=== PATIENT | male | born 1950 | race Caucasian/White ===

== ENCOUNTER → 2017-05-17 | Outpatient (CLI) | payer MEDICARE ==
[2017-05-17 15:34] LABS: Blood Urea Nitrogen 27 mg/dL (9-20)
--- NOTE | 2017-05-17 17:22 | CT ---
EXAMINATION TYPE: CT abdomen pelvis w con DATE OF EXAM: 05/17/2017 COMPARISON: 02/19/2017 HISTORY: Diverticulitis and abd pain. CT DLP: 1680 mGycm Automated exposure control for dose reduction was used. TECHNIQUE: Helical acquisition of images was performed from the lung bases through the pelvis. CONTRAST: Performed with Oral Contrast and with IV Contrast, patient injected with 100ml mL of Omnipaque 300. FINDINGS: There is coarse interstitial density at the lung bases. There is no pleural effusion. Gallbladder is large. There are calcified granulomata in the liver. Bile ducts are not dilated. There is no evidence of pancreatic mass. Spleen appears normal. There is no adrenal mass. Kidneys show satisfactory contrast opacification. There is no hydronephrosi s. There is a 2 cm cortical cyst on the lateral left kidney. There is no retroperitoneal adenopathy. Abdominal aorta is atheromatous. Bladder distends smoothly. There is no sign of a pelvic mass. There is no ascites. There is no sign of free air. I see no intestinal wall thickening. There are diverticu la in the sigmoid colon. There are surgical clips in the sigmoid colon. I see no sign of diverticulit is. Appendix appears normal. There is no sign of a bowel obstruction. There are spondylotic changes i n the lumbar spine and moderate spinal stenosis is present at L3-4. IMPRESSION: EXTENSIVE INFILTRATES AT THE LUNG BASES CONSISTENT WITH PULMONARY FIBROSIS. ATHEROSCLEROTIC VASCULAR DISEASE. MODERATE L3-4 BONY SPINAL STENOSIS. LEFT RENAL CORTICAL CYST. NO EVIDENCE OF DIVERTICULITIS. DIVERTIC ULOSIS. NO ADVERSE CHANGE COMPARED TO OLD EXAM.
== END | disposition home or self-care (01) ==
LOC: RADCTMAIN 15:04
PROVIDERS: ATTEND Surgery
DX: K57.90 Diverticulosis of intestine, part unspecified, without perforation or abscess without bleeding (principal); N28.1 Cyst of kidney, acquired
CPT/HCPCS: 82565; 84520; 74177; 36415; Q9967

== ENCOUNTER 2017-06-13 12:05 | Day surgery (SDC) | payer MEDICARE ==
[2017-06-11 15:05] VITALS: BMI 25.5
[~2017-06-13 12:05] MED LIST: DEXAMETHASONE SOD PHOSPHATE 10 MG/ML 1 ML VIAL IV ONE; HEPARIN SODIUM,PORCINE 5,000 UNIT/ML 1 ML VIAL SQ ONE; MORPHINE SULFATE 4 MG/ML SYRINGE IV PRN; ONDANSETRON 4 MG/2 ML VIAL IVP ONE; ceFAZolin IN SWFI 2 GM/20 ML SYRINGE IVP ONE
[2017-06-13 13:30] LABS: Glucose,Whole Blood 125 mg/dL (75-99)
[2017-06-13] MEDS: LACTATED RINGERS 1,000 ML IV SCH ×2 (13:35→14:07)
--- NOTE | 2017-06-13 14:02 | P.GSHP ---
History of Present Illness H&P Date: 06/13/17 Chief Complaint: Right upper quadrant pain This is a 67-year-old male referred from Dr. Kirby Hearn. Patient is a chronic complaints of right upper quadrant pain. He states he has pain after eating. His recent HIDA scan shows a diminished ejection fraction he presents today for laparoscopic cholecystectomy for chronic right upper quadrant pain. Past Medical History Past Medical History: Coronary Artery Disease (CAD), Diabetes Mellitus, Hyperlipidemia, Hypertension, Osteoarthritis (OA), Vascular Disorder Additional Past Medical History / Comment(s): Hx: Urinary calculus, diverticulitis, lower lt abdominal pain,. GALLBLADDER DISORDER. EDEMA KASSANDRA LEGS. TINY WOUND LT MARSHALL, (WAS TREATED IN WOUND CLINIC IN PAST) KEEPS DRESSING WITH MEDIHONEY, NO DRAINAGE. History of Any Multi-Drug Resistant Organisms: None Reported Past Surgical History: Bowel Resection, Coronary Bypass/CABG, Heart Catheterization, Hernia Repair, Joint Replacement, Orthopedic Surgery Additional Past Surgical History / Comment(s): ORIF Rt ankle. Left knee arthroscopy, Total lt knee replacement. COLONOSCOPY. CHRONIC LT MARSHALL WOUND. CABG-11/30/2009 Past Anesthesia/Blood Transfusion Reactions: No Reported Reaction, Unable to Obtain Additional Past Anesthesia/Blood Transfusion Reaction / Comment(s): (ADOPTED) Smoking Status: Former smoker - Past Family History Mother Family Medical History: Unable to Obtain Additional Family Medical History / Comment(s): adopted Medications and Allergies Home Medications Medication Instructions Recorded Confirmed Type Allopurinol [Zyloprim] 300 mg PO DAILY 07/28/13 06/13/17 History Hydrocodone/Acetaminophen [Vicodin 0.5 - 1 tab PO BID 07/28/13 06/13/17 History Hp 10-300 mg Tablet] amLODIPine [Norvasc] 10 mg PO HS 07/28/13 06/13/17 History glipiZIDE [Glucotrol XL] 10 mg PO DAILY 07/28/13 06/13/17 History metFORMIN HCL [Glucophage] 500 mg PO QAM 07/28/13 06/13/17 History Aspirin 325 mg PO DAILY 02/21/17 06/13/17 History Acetaminophen [Tylenol Arthritis] 650 mg PO Q8H PRN 06/07/17 06/13/17 History Metoprolol Tartrate [Lopressor] 25 mg PO BID 06/07/17 06/13/17 History Multivitamins, Thera [Multivitamin 1 tab PO DAILY 06/11/17 06/13/17 History (formulary)] metFORMIN HCL [Glucophage] 1,000 mg PO HS 06/11/17 06/13/17 History Allergies Allergy/AdvReac Type Severity Reaction Status Date / Time Penicillins Allergy Unknown Verified 06/13/17 13:18 Sulfa (Sulfonamide Allergy Unknown Verified 06/13/17 13:18 Antibiotics) Surgical - Exam Vital Signs Temp Pulse Resp BP Pulse Ox 97.7 F 60 20 162/76 99 06/13/17 13:26 06/13/17 13:26 06/13/17 13:26 06/13/17 13:26 06/13/17 13:26 - General well developed, no distress - Eyes PERRL - ENT normal pinna - Neck no masses - Respiratory normal expansion - Cardiovascular Rhythm: regular - Abdomen Abdomen: soft Results - Labs Abnormal Lab Results - Last 24 Hours (Table) 06/13/17 Range/Units 13:29 POC Glucose (mg/dL) 125 H (75-99) mg/dL Assessment and Plan Assessment: Right upper quadrant pain Chronic cholecystitis We'll perform laparoscopic cholecystectomy.
[2017-06-13] MEDS ORDERED: PROPOFOL 10 MG/ML 20 ML VIAL IV ONE (14:08)
[2017-06-13] MEDS ORDERED: LABETALOL 5 MG/ML VIAL MDV ONE (14:08)
[2017-06-13] MEDS ORDERED: fentaNYL (PF) 50 MCG/ML 2 ML AMP ONE (14:08)
[2017-06-13] MEDS ORDERED: MIDAZOLAM 2 MG/2 ML VIAL ONE (14:08)
[2017-06-13] MEDS ORDERED: ePHEDrine SULFATE/0.9% NACL/PF 50 MG/5 ML SYRINGE IV ONE (14:08)
[2017-06-13] MEDS ORDERED: SUCCINYLCHOLINE CHLORIDE 100 MG/5 ML SYR IV ONE (14:08)
[2017-06-13] MEDS ORDERED: NEOSTIGMINE 1 MG/ML 10 ML VIAL ONE (14:08)
[2017-06-13] MEDS ORDERED: GLYCOPYRROLATE 0.2 MG/ML 2 ML VIAL ONE (14:08)
[2017-06-13] MEDS ORDERED: ROCURONIUM BROMIDE 10 MG/ML 10 ML VIAL IV ONE (14:08)
[2017-06-13] MEDS ORDERED: LIDOCAINE 1% INJ 10MG/ML (20 ML MDV) ONE (14:08)
[2017-06-13] MEDS ORDERED: BUPIVACAINE (PF) 0.25% 30 ML VIAL SQ ONE (14:14)
[2017-06-13 15:19] VITALS: RESP 16; TEMP 98
[2017-06-13 15:26] LABS: Glucose,Whole Blood 160 mg/dL (75-99)
[2017-06-13 16:50] VITALS: BP 144/56; PULSE 72
--- NOTE | 2017-06-13 17:58 | P.OP ---
Date of Procedure: 06/13/17 Preoperative Diagnosis: Cholecystitis Postoperative Diagnosis: Cholecystitis Procedure(s) Performed: Laparoscopic cholecystectomy Anesthesia: KENNY Surgeon: Raffy Loya Estimated Blood Loss (ml): 5 Pathology: other (Gallbladder) Condition: stable Disposition: PACU Description of Procedure: The patient was placed on the operating table. The patient received a general endotracheal tube anesthesia. The patients abdomen was prepped and draped in the usual sterile fashion. Through an infraumbilical stab incision, the fascia of the anterior abdominal wall was grasped with a pair of Kochers and then the Veress needle was placed in the peritoneal cavity. Position of the Veress needle was confirmed with positive drop test. The abdomen was then insufflated. After adequate insufflation, the 10 mm trocar was placed in the peritoneal cavity. Following this the laparoscope was placed in the peritoneal cavity. The patient was placed in the head-up, right side up position and then a 5 mm trocar was placed in the right lateral and right subcostal position under direct visualization. A 8 mm trocar was placed in the epigastric position. The gallbladder was grasped in the fundus and infundibulum. Traction on the gallbladder was placed in the lateral and the cephalad positions. The triangle of Calot was visualized.. The cystic duct was bluntly dissected until the union of the cystic duct and common bile duct was seen. The cystic duct was then divided and sealed with the Harmonic scissors. A PDS Endoloop was then placed throughout the cystic duct stump. The cystic artery divided and sealed with the Harmonic scissors. The gallbladder was then removed from the liver bed using Harmonic scissors. The gallbladder was then extracted through the epigastric port site. Operative field was checked for any bleeding spots and Harmonic scissors was used to coagulate the liver bed. The abdomen was irrigated. The trocars were removed. The skin was closed using interrupted 3-0 Vicryl suture. Dermabond dressing were applied. The patient tolerated the procedure well.
== END 2017-06-13 17:15 | disposition home or self-care (01) ==
LOC: OR 12:05
PROVIDERS: ATTEND Surgery
DX: K80.10 Calculus of gallbladder with chronic cholecystitis without obstruction (principal); I25.10 Atherosclerotic heart disease of native coronary artery without angina pectoris; E11.9 Type 2 diabetes mellitus without complications; E78.5 Hyperlipidemia, unspecified; M19.90 Unspecified osteoarthritis, unspecified site; R59.0 Localized enlarged lymph nodes; I10 Essential (primary) hypertension; Z87.442 Personal history of urinary calculi; Z87.891 Personal history of nicotine dependence; Z88.0 Allergy status to penicillin; Z79.84 Long term (current) use of oral hypoglycemic drugs; Z90.49 Acquired absence of other specified parts of digestive tract; Z96.652 Presence of left artificial knee joint; Z95.1 Presence of aortocoronary bypass graft; Z79.82 Long term (current) use of aspirin; Z88.2 Allergy status to sulfonamides
CPT/HCPCS: 88304; 47562; J2250; J2270; J1644; J1100; J2710; J2405; J2001; J3010; J0330; J2704; J0690

== ENCOUNTER → 2018-01-28 | Outpatient (CLI) | payer MEDICARE ==
[2018-01-28 15:45] LABS: HCT 41.5 % (39.0-53.0); HGB 13.1 gm/dL (13.0-17.5); MCH 32.1 pg (25.0-35.0); MCHC 31.5 g/dL (31.0-37.0); MCV 101.7 fL (80.0-100.0); Macrocytosis Slight; Mean Platelet Volume 7.1; Platelet Count 259 k/uL (150-450); RBC 4.08 m/uL (4.30-5.90); RDW 13.4 % (11.5-15.5); WBC 7.9 k/uL (3.8-10.6)
== END | disposition home or self-care (01) ==
LOC: LABPAT 14:17
PROVIDERS: ATTEND Internal Medicine Interventional Cardiology
DX: Z01.812 Encounter for preprocedural laboratory examination (principal); I25.10 Atherosclerotic heart disease of native coronary artery without angina pectoris; I10 Essential (primary) hypertension; E78.1 Pure hyperglyceridemia; R07.9 Chest pain, unspecified
CPT/HCPCS: 36415; 80051; 82565; 84520; 85027

== ENCOUNTER 2018-01-31 07:49 | Day surgery (SDC) | payer MEDICARE ==
[2018-01-28 10:49] VITALS: BMI 27.9
[~2018-01-31 07:49] MED LIST changes: +ALPRAZolam 0.25 MG TAB PO PRN; +ASPIRIN 325 MG TAB PO ONE; -DEXAMETHASONE SOD PHOSPHATE 10 MG/ML 1 ML VIAL IV ONE; -HEPARIN SODIUM,PORCINE 5,000 UNIT/ML 1 ML VIAL SQ ONE; -MORPHINE SULFATE 4 MG/ML SYRINGE IV PRN; +NITROGLYCERIN SL TABS 0.4 MG TAB SUBLINGUAL PRN; -ONDANSETRON 4 MG/2 ML VIAL IVP ONE; +SODIUM CHLORIDE 0.9% 1,000 ML in EMPTY BAG 1 BAG IV ONE; -ceFAZolin IN SWFI 2 GM/20 ML SYRINGE IVP ONE
[2018-01-31 08:29] VITALS: TEMP 97.9
[2018-01-31 08:36] LABS: Glucose,Whole Blood 136 mg/dL (75-99)
[2018-01-31] MEDS ORDERED: MIDAZOLAM 2 MG/2 ML VIAL IV ONE (09:59)
[2018-01-31] MEDS ORDERED: LIDOCAINE 1% INJ 10MG/ML (20 ML MDV) SQ ONE (10:00)
[2018-01-31] MEDS ORDERED: IOPAMIDOL-370 125ML BTL INJ ONE (10:25)
[2018-01-31] MEDS ORDERED: RX INFO: IV CONTRAST WAS GIVEN 1 EACH MISC MISCELLANE PRN (10:37)
[2018-01-31] MEDS ORDERED: SODIUM CHLORIDE 0.9% 1,000 ML IV SCH (10:45)
[2018-01-31] MEDS ORDERED: hydrALAZINE HCL 20 MG/ML 1 ML VIAL IVP PRN (12:05)
[2018-01-31] MEDS ORDERED: hydrALAZINE HCL 20 MG/ML 1 ML VIAL ONE (12:05)
[2018-01-31 15:47] VITALS: BP 156/72; PULSE 76; RESP 16
--- NOTE | 2018-01-31 17:36 | CC ---
CARDIAC CATHETERIZATION REPORT DATE OF SERVICE: 01/31/2018 PERFORMING PHYSICIAN: Mike Arevalo MD, service center assistant. PROCEDURES PERFORMED: 1. Selective left and right coronary angiogram. 2. SVG to first and second obtuse marginal branch angiogram. 3. KAUFMAN to LAD angiogram. 4. Left heart catheterization. INDICATION: This is a pleasant 67-year-old gentleman with known history of coronary artery disease and prior coronary artery bypass grafting with known SVG to OM1 and SVG to OM2 as well as KAUFMAN to LAD. He was experiencing chest discomfort with exertion. Because of that, heart catheterization was advised. APPROACH: Right common femoral artery. COMPLICATIONS: None. LEVEL OF SEDATION: Moderate, with sedation length of 30 minutes. PROCEDURE DESCRIPTION: After obtaining informed consent, the patient was brought to the cardiac floating labor gang supervisor. The right common femoral artery was cannulated using micropuncture technique. The micropuncture wire passed easily. Then I placed a 6-Israeli sheath in the right common femoral artery. After that I did selective right and left coronary angiogram using JL4 and JR4 catheters. SVG to OM1 and OM2 was performed using the JR4 catheter. The KAUFMAN to LAD angiogram was also performed using the JR4 catheter. After that I did left heart catheterization using 6-Israeli pigtail catheter. The procedure was completed without any complication. SELECTIVE CORONARY ANGIOGRAM: 1. Left main. The left main appeared to be calcified with disease in the range of 30% only. It bifurcates into left circumflex and left anterior descending artery. 2. The left circumflex is a large-caliber vessel and it is a dominant vessel. The proximal left circumflex appeared to have a lesion in the range of 60%. The circumflex after that in the proximal portion gives rise to OM branch which appeared to be bypassed with competitive flow from the SVG to that OM. The mid and distal left circumflex appeared to have mild disease only. 3. The LAD is 100% occluded in the proximal portion. 4. The right coronary artery is a small- to medium-caliber vessel and is a nondominant vessel with intermediate disease in the mid portion. CORONARY BYPASS ANGIOGRAM: 1. The SVG to OM1 is patent. 2. The SVG to OM2 is patent. 3. The KAUFMAN to LAD is patent as well. HEMODYNAMICS: The left ventricular end-diastolic pressure was 4 mmHg with mild gradient across the aortic valve. CONCLUSION: 1. Severe double-vessel coronary artery disease involving the LAD and left circumflex. 2. Patent KAUFMAN to LAD. 3. Patent SVG to OM1. 4. Patent SVG to OM2. POST-PROCEDURE MANAGEMENT: 1. Maximize medical treatment. 2. Follow up with the patient. HIRAL / ANDREW: [id number] /
--- NOTE | 2018-01-31 18:12 | LTR ---
01/31/2018 To: Dr. Hearn Re: Sam Sanchez (1950) Dear Dr. Hearn, MrArnav Sanchez underwent a heart catheterization which showed patency of all his bypasses. I want to thank you for allowing us to participate in his care. Please do not hesitate to call if you have any question or concerns. Sincerely, Mike Arevalo MD MMCONCHITA / AYLEENN: [id number] /
== END 2018-01-31 16:57 | disposition home or self-care (01) ==
LOC: CATHCVL 07:49
PROVIDERS: ATTEND Internal Medicine Interventional Cardiology
DX: I25.110 Atherosclerotic heart disease of native coronary artery with unstable angina pectoris (principal); R94.39 Abnormal result of other cardiovascular function study; I10 Essential (primary) hypertension; E78.5 Hyperlipidemia, unspecified; E11.9 Type 2 diabetes mellitus without complications; I25.9 Chronic ischemic heart disease, unspecified; E78.00 Pure hypercholesterolemia, unspecified; Z95.1 Presence of aortocoronary bypass graft; F17.200 Nicotine dependence, unspecified, uncomplicated; Z79.84 Long term (current) use of oral hypoglycemic drugs; Z79.899 Other long term (current) drug therapy; Z79.02 Long term (current) use of antithrombotics/antiplatelets; Z88.0 Allergy status to penicillin
CPT/HCPCS: 93459; C1769 ×4; C1894; C1760; J2250; J0360; J2001; Q9967

== ENCOUNTER 2018-02-07 15:37 | Inpatient (IN) | payer MEDICARE ==
[2018-02-07] MEDS ORDERED: SODIUM CHLORIDE 0.9% 1,000 ML IV STA (15:43)
[2018-02-07 16:20] LABS: Partial Thromboplastin Time 24.4 sec (22.0-30.0); Prothrombin Time 9.9 sec (9.0-12.0)
[2018-02-07 16:21] LABS: Basophils # (A) 0.1 k/uL (0-0.2); Basophils % (A) 1 %; Eosinophils # (A) 0.2 k/uL (0-0.7); Eosinophils % (A) 2 %; HCT 39.7 % (39.0-53.0); HGB 13.5 gm/dL (13.0-17.5); Lymphocytes # (A) 1.9 k/uL (1.0-4.8); Lymphocytes % (A) 20 %; MCH 33.6 pg (25.0-35.0); MCV 98.8 fL (80.0-100.0); Monocytes # (A) 0.8 k/uL (0-1.0); Monocytes % (A) 8 %; Neutrophils # (A) 6.3 k/uL (1.3-7.7); Neutrophils % (A) 68 %; Platelet Count 254 k/uL (150-450); RBC 4.02 m/uL (4.30-5.90); RDW 13.5 % (11.5-15.5); WBC 9.4 k/uL (3.8-10.6)
--- NOTE | 2018-02-07 16:23 | ED ---
General Adult HPI - General Chief complaint: Neuro Symptoms/Deficit Stated complaint: Visual changes Time Seen by Provider: 02/07/18 15:50 Source: patient, RN notes reviewed, old records reviewed Mode of arrival: wheelchair Limitations: no limitations - History of Present Illness Initial comments: 68-year-old male history of CAD, peripheral vascular disease, and diabetes presenting with double vision. Symptoms began approximately 30 minutes prior to arrival. No injury noted, no trauma. No headache. Denies focal numbness or weakness. No history of CVA or TIA. No chest pain or shortness of breath. Patient did have heart catheterization one week ago. Currently on aspirin and Plavix. - Related Data Home Medications Medication Instructions Recorded Confirmed Allopurinol [Zyloprim] 300 mg PO DAILY 07/28/13 01/31/18 glipiZIDE [Glucotrol XL] 10 mg PO DAILY 07/28/13 01/31/18 Aspirin 325 mg PO DAILY 02/21/17 01/31/18 Metoprolol Tartrate [Lopressor] 50 mg PO DAILY 06/07/17 01/31/18 Multivitamins, Thera [Multivitamin 1 tab PO DAILY 06/11/17 01/31/18 (formulary)] Atorvastatin [Lipitor] 40 mg PO DAILY 01/28/18 01/31/18 Clopidogrel [Plavix] 75 mg PO DAILY 01/28/18 01/31/18 Docusate [Colace] 100 mg PO DAILY 01/28/18 01/31/18 HYDROcodone/APAP 10-325MG [[place] 0.5 tab PO DAILY PRN 01/28/18 01/31/18 10-325] Tamsulosin HCl [Flomax] 0.4 mg PO DAILY 01/28/18 01/31/18 Ubidecarenone [Co Q-10] 100 mg PO DAILY 01/28/18 01/31/18 Allergies Allergy/AdvReac Type Severity Reaction Status Date / Time Penicillins Allergy Itching Verified 02/07/18 16:12 Sulfa (Sulfonamide Allergy Unknown Verified 02/07/18 16:12 Antibiotics) Review of Systems ROS Statement: Those systems with pertinent positive or pertinent negative responses have been documented in the HPI. ROS Other: All systems not noted in ROS Statement are negative. Past Medical History Past Medical History: Coronary Artery Disease (CAD), Diabetes Mellitus, Hyperlipidemia, Hypertension, Osteoarthritis (OA), Prostate Disorder, Vascular Disorder Additional Past Medical History / Comment(s): Hx: Urinary calculus, diverticulitis,. EDEMA KASSANDRA LEGS. TINY WOUND LT MARSHALL, (WAS TREATED IN WOUND CLINIC IN PAST) KEEPS DRESSING WITH MEDIHONEY, NO DRAINAGE. History of Any Multi-Drug Resistant Organisms: None Reported Past Surgical History: Bowel Resection, Cholecystectomy, Coronary Bypass/CABG, Heart Catheterization, Hernia Repair, Joint Replacement, Orthopedic Surgery Additional Past Surgical History / Comment(s): ORIF Rt ankle, stent in abdomen. Left knee arthroscopy, Total lt knee replacement. COLONOSCOPY. CHRONIC LT MARSHALL WOUND. CABG-11/30/2009 Past Anesthesia/Blood Transfusion Reactions: No Reported Reaction Additional Past Anesthesia/Blood Transfusion Reaction / Comment(s): (ADOPTED) Past Psychological History: No Psychological Hx Reported Smoking Status: Former smoker Past Alcohol Use History: None Reported Past Drug Use History: None Reported - Past Family History Mother Family Medical History: Unable to Obtain Additional Family Medical History / Comment(s): adopted General Exam Limitations: no limitations General appearance: alert, in no apparent distress Head exam: Present: atraumatic, normocephalic Eye exam: Present: normal appearance, PERRL. Absent: EOMI (Left eye medial rectus palsy) Neck exam: Present: normal inspection. Absent: tenderness, meningismus Respiratory exam: Present: normal lung sounds bilaterally. Absent: respiratory distress, wheezes Cardiovascular Exam: Present: regular rate, normal rhythm GI/Abdominal exam: Present: soft. Absent: distended, tenderness Extremities exam: Present: normal inspection Back exam: Present: normal inspection, full ROM Neurological exam: Present: alert, oriented X3, motor sensory deficit. Absent: CN II-XII intact (Third nerve palsy (I) Psychiatric exam: Present: normal affect, normal mood Skin exam: Present: warm, dry, intact. Absent: cyanosis, diaphoretic Course Vital Signs 02/07/18 02/07/18 02/07/18 15:41 16:30 17:00 Temperature 97.4 F L Pulse Rate 63 57 L Respiratory 18 20 Rate Blood Pressure 151/79 134/69 125/54 O2 Sat by Pulse 98 97 Oximetry 02/07/18 17:30 Temperature Pulse Rate 51 L Respiratory 18 Rate Blood Pressure 143/65 O2 Sat by Pulse 96 Oximetry - Reevaluation(s) Reevaluation #1: 02/07/18 17:17 Patient reevaluated, vision improved, has improved medial gaze in the left eye. EKG Findings - EKG Comments: EKG Findings:: EKG: Sinus bradycardia, left axis deviation, right bundle branch block no ST segment elevation, rate of 50, KS interval 168, QRS duration 152, QTC 457, right bundle branch block is new compared to old EKG from 2018. No interval EKG for comparison. Medical Decision Making - Medical Decision Making 68-year-old male presenting with double vision. Exam reveals a third nerve palsy on the left eye with inability to adduct the left eye towards anemia. This resolves while in the emergency department. He has normal vision. Remainder of the neuro exam is unremarkable. CT was performed which is negative for acute cranial hemorrhage or mass effect, CT angiography negative for aneurysm or scrotal hemorrhage, there is 75% stenosis of the bilateral internal carotid arteries. Patient will be kept for further TIA and CVA workup. Neurology placed on consult. Case discussed with attending physician Dr. Nova. - Lab Data Result diagrams: 02/07/18 16:00 02/07/18 16:00 Lab Results 02/07/18 02/07/18 02/07/18 Range/Units 16:00 16:00 16:00 WBC 9.4 (3.8-10.6) k/uL RBC 4.02 L (4.30-5.90) m/uL Hgb 13.5 (13.0-17.5) gm/dL Hct 39.7 (39.0-53.0) % MCV 98.8 (80.0-100.0) fL MCH 33.6 (25.0-35.0) pg MCHC 34.0 (31.0-37.0) g/dL RDW 13.5 (11.5-15.5) % Plt Count 254 (150-450) k/uL Neutrophils % 68 % Lymphocytes % 20 % Monocytes % 8 % Eosinophils % 2 % Basophils % 1 % Neutrophils # 6.3 (1.3-7.7) k/uL Lymphocytes # 1.9 (1.0-4.8) k/uL Monocytes # 0.8 (0-1.0) k/uL Eosinophils # 0.2 (0-0.7) k/uL Basophils # 0.1 (0-0.2) k/uL PT (9.0-12.0) sec INR (<1.2) APTT (22.0-30.0) sec Sodium 139 (137-145) mmol/L Potassium 4.9 (3.5-5.1) mmol/L Chloride 105 (98-107) mmol/L Carbon Dioxide 25 (22-30) mmol/L Anion Gap 9 mmol/L BUN 28 H (9-20) mg/dL Creatinine 1.40 H (0.66-1.25) mg/dL Est GFR (CKD-EPI)AfAm 60 (>60 ml/min/1.73 sqM) Est GFR (CKD-EPI)NonAf 51 (>60 ml/min/1.73 sqM) Glucose 103 H (74-99) mg/dL Calcium 9.4 (8.4-10.2) mg/dL Total Bilirubin 0.5 (0.2-1.3) mg/dL AST 46 (17-59) U/L ALT 54 (21-72) U/L Alkaline Phosphatase 130 H (38-126) U/L Total Creatine Kinase 120 (55-170) U/L CK-MB (CK-2) 1.3 (0.0-2.4) ng/mL CK-MB (CK-2) Rel Index 1.1 Troponin I 0.016 (0.000-0.034) ng/mL Total Protein 7.3 (6.3-8.2) g/dL Albumin 4.1 (3.5-5.0) g/dL 02/07/18 Range/Units 16:00 WBC (3.8-10.6) k/uL RBC (4.30-5.90) m/uL Hgb (13.0-17.5) gm/dL Hct (39.0-53.0) % MCV (80.0-100.0) fL MCH (25.0-35.0) pg MCHC (31.0-37.0) g/dL RDW (11.5-15.5) % Plt Count (150-450) k/uL Neutrophils % % Lymphocytes % % Monocytes % % Eosinophils % % Basophils % % Neutrophils # (1.3-7.7) k/uL Lymphocytes # (1.0-4.8) k/uL Monocytes # (0-1.0) k/uL Eosinophils # (0-0.7) k/uL Basophils # (0-0.2) k/uL PT 9.9 (9.0-12.0) sec INR 1.0 (<1.2) APTT 24.4 (22.0-30.0) sec Sodium (137-145) mmol/L Potassium (3.5-5.1) mmol/L Chloride (98-107) mmol/L Carbon Dioxide (22-30) mmol/L Anion Gap mmol/L BUN (9-20) mg/dL Creatinine (0.66-1.25) mg/dL Est GFR (CKD-EPI)AfAm (>60 ml/min/1.73 sqM) Est GFR (CKD-EPI)NonAf (>60 ml/min/1.73 sqM) Glucose (74-99) mg/dL Calcium (8.4-10.2) mg/dL Total Bilirubin (0.2-1.3) mg/dL AST (17-59) U/L ALT (21-72) U/L Alkaline Phosphatase (38-126) U/L Total Creatine Kinase (55-170) U/L CK-MB (CK-2) (0.0-2.4) ng/mL CK-MB (CK-2) Rel Index Troponin I (0.000-0.034) ng/mL Total Protein (6.3-8.2) g/dL Albumin (3.5-5.0) g/dL Disposition Clinical Impression: Transient cerebral ischemia, Third nerve palsy of left eye Disposition: ADMITTED IP TO THIS [facility] Condition: Stable Is patient prescribed a controlled substance at d/c from ED?: No Referrals: Kirby Hearn MD [Primary Care Provider] - 1-2 days Decision to Admit Reason: Admit from EC Decision Date: 02/07/18 Decision Time: 19:11
[2018-02-07 16:28] LABS: Albumin 4.1 g/dL (3.5-5.0); Calcium 9.4 mg/dL (8.4-10.2); Potassium 4.9 mmol/L (3.5-5.1); Total Bilirubin 0.5 mg/dL (0.2-1.3); Total Protein 7.3 g/dL (6.3-8.2)
[2018-02-07 16:40] LABS: Creatine Kinase MB 1.3 ng/mL (0.0-2.4); Troponin I 0.016 ng/mL (0.000-0.034)
--- NOTE | 2018-02-07 16:52 | CT ---
EXAMINATION TYPE: CT brain wo con for TPA DATE OF EXAM: 02/07/2018 COMPARISON: None HISTORY: Vision changes. CT DLP: 1037 mGycm Automated exposure control for dose reduction was used. FINDINGS: There is cerebral cortical atrophy. There is no mass effect nor midline shift. There is no sign of in tracranial hemorrhage. The calvarium is intact. IMPRESSION: MILD ATROPHY. NO ACUTE INTRACRANIAL ABNORMALITY.
--- NOTE | 2018-02-07 18:15 | CT ---
EXAMINATION TYPE: CT angio head neck DATE OF EXAM: 02/07/2018 HISTORY: Vision changes. COMPARISON: None CT DLP: 497.7 mGycm. Automated Exposure Control for Dose Reduction was Utilized. TECHNIQUE: CTA scan of the neck is performed with IV Contrast, patient injected with 65ml mL of Isov ue 370, axial images are obtained, coronal and sagittal reformatted images are reviewed. Three-D vanna nstructed images are created on an independent workstation and reviewed. FINDINGS: There is normal branching pattern of the great vessels at the aortic arch. There is atherosclerotic p laque formation at the aortic arch. There is arterial flow in both vertebral arteries which are fairl y symmetric. There is arterial flow in the common internal and external carotid arteries bilaterally. There is variable plaque formation at the carotid artery bifurcations. There is significant luminal narrowing of the left carotid artery bifurcation with probably 75% stenosis on the left side. There i s similar more than 75% stenosis of the right internal heart artery at the origin. There is no evidence of carotid or vertebral artery aneurysm or dissection. There is arterial flow in the vertebrobasilar artery system. There is arterial flow in the anterior middle and posterior cereb ral arteries bilaterally. I see no evidence of intracranial aneurysm or neovascularity. There is norm al contrast opacification of the venous sinuses. There is probably 50% stenosis at the origin of the left subclavian artery. There is moderate plaque formation at the origin of the right vertebral artery. There is probably some fibrotic change in the upper lobes. Impression There is moderate plaque formation as above. There is more than 75% stenosis of the origins of both i nternal carotid arteries. No evidence of intracranial aneurysm or stenosis.
[2018-02-07] MEDS ORDERED: ASPIRIN 325 MG TAB PO STA (19:06)
[2018-02-07] MEDS ORDERED: MELATONIN 3 MG TABLET PO PRN (19:29)
[2018-02-07] MEDS ORDERED: LORazepam 2 MG/ML INJ IV PRN (19:30)
[2018-02-07] MEDS: SODIUM CHLORIDE 0.9% 1,000 ML IV SCH (20:14)
[2018-02-07 20:16] LABS: Glucose,Whole Blood 149 mg/dL (75-99)
[2018-02-07 20:25] LABS: Appearance,Urine Clear (Clear); Bilirubin,Urine Negative (Negative); Blood,Urine Negative (Negative); Color,Urine Yellow; Glucose,Urine (UA) Trace (Negative); Ketones,Urine Negative (Negative); Leukocyte Esterase,Urine Negative (Negative); Nitrite,Urine Negative (Negative); PH, Urine 6.5 (5.0-8.0); Protein,Urine Trace (Negative); Specific Gravity,Urine 1.026 (1.001-1.035); Urobilinogen,Urine <2.0 mg/dL (<2.0)
[2018-02-07 21:26] LABS: Glucose,Whole Blood 122 mg/dL (75-99)
[2018-02-07] MEDS: ALPRAZolam 0.25 MG TAB PO PRN (23:37)
[2018-02-08] MEDS: HEPARIN SODIUM,PORCINE 5,000 UNIT/ML 1 ML VIAL SQ SCH ×3 (05:55→21:46)
[2018-02-08] MEDS: INSULIN ASPART 100 UNIT/ML 1 ML 10 ML VIAL SQ SCH ×5 (05:55→21:43)
[2018-02-08 06:16] LABS: Glucose,Whole Blood 89 mg/dL (75-99)
[2018-02-08] MEDS: PANTOPRAZOLE 40 MG TABLET PO SCH (06:19)
[2018-02-08 06:47] LABS: Basophils # (A) 0.1 k/uL (0-0.2); Basophils % (A) 1 %; Eosinophils # (A) 0.3 k/uL (0-0.7); Eosinophils % (A) 3 %; HCT 37.1 % (39.0-53.0); HGB 12.1 gm/dL (13.0-17.5); Lymphocytes % (A) 23 %; MCH 32.9 pg (25.0-35.0); MCHC 32.7 g/dL (31.0-37.0); MCV 100.8 fL (80.0-100.0); Macrocytosis Slight; Monocytes # (A) 0.8 k/uL (0-1.0); Monocytes % (A) 9 %; Neutrophils # (A) 5.5 k/uL (1.3-7.7); Neutrophils % (A) 63 %; Platelet Count 223 k/uL (150-450); RBC 3.68 m/uL (4.30-5.90); RDW 13.4 % (11.5-15.5); WBC 8.7 k/uL (3.8-10.6)
[2018-02-08 06:58] LABS: Anion Gap 5 mmol/L; Blood Urea Nitrogen 18 mg/dL (9-20); Calcium 8.8 mg/dL (8.4-10.2); Carbon Dioxide 25 mmol/L (22-30); Chloride 110 mmol/L (98-107); Cholesterol 120 mg/dL (<200); Glucose 62 mg/dL (74-99); HDL Cholesterol 53 mg/dL (40-60); LDL Cholesterol,Calculated 55 mg/dL (0-99); Potassium 4.3 mmol/L (3.5-5.1); Sodium 140 mmol/L (137-145); Triglycerides 58 mg/dL (<150)
[2018-02-08] MEDS: ASPIRIN 325 MG TAB PO SCH (08:43)
[2018-02-08] MEDS: SODIUM CHLORIDE 0.9% 1,000 ML IV SCH (08:43)
--- NOTE | 2018-02-08 08:45 | HP ---
HISTORY AND PHYSICAL DATE OF SERVICE: 02/07/2018 CHIEF COMPLAINT: Visual changes. HISTORY OF PRESENT ILLNESS: This 68-year-old gentleman with a past medical history of multiple medical problems including history of diabetes, hypertension, hyperlipidemia, history of DJD, history of CAD, being followed by Dr. Kirby Hearn in the outpatient setting is complaining of difficulty in vision. This morning the patient had blurring of vision and double vision, especially when looking to the right and the patient was found to have right weakness, but which improved significantly after some time. Initial CAT scan of the brain and CT angio also did not show acute abnormality. There is no history of any fever or rigors. No history of headache, loss of consciousness, seizures at this time. The carotid ultrasound showed a 75% stenosis of origin of the both internal carotid arteries. PAST MEDICAL HISTORY: History of CAD, diabetes mellitus, hypertension, hyperlipidemia, history of DJD, history of urinary calculus, bowel resection, CAD, CABG. MEDICATIONS: Medications prior to admission include home medications are: 1. Glipizide 10 mg p.o. daily. 2. Coenzyme Q10, 100 mg daily. 3. Flomax 0.4 daily. 4. Multivitamins 1 p.o. daily. 5. Lopressor 50 mg p.o. daily. 6. [place] p.r.n. 7. Colace 100 mg p.o. daily. 8. Plavix 75 mg p.o. daily. 9. Lipitor 40 mg daily. 10.Aspirin 325 mg daily. 11.Zyloprim 300 mg daily. ALLERGIES: Allergies are PENICILLIN and SULFA. FAMILY HISTORY: The patient is adopted. SOCIAL HISTORY: Previous history of smoking and occasional alcohol intake. REVIEW OF SYSTEMS: ENT: As mentioned earlier. CARDIOVASCULAR SYSTEM: No angina. RESPIRATORY SYSTEM: No cough or hemoptysis. GI: No nausea. : No dysuria. NERVOUS SYSTEM: As mentioned earlier. ALLERGY/IMMUNOLOGY: No asthma or hayfever. MUSCULOSKELETAL: As mentioned earlier. HEMATOLOGY: No history of anemia. ENDOCRINE: History of diabetes, no hypothyroidism. CONSTITUTIONAL: As mentioned early. DERMATOLOGY: Negative. RHEUMATOLOGY: Negative. PSYCHIATRY: As mentioned earlier. PHYSICAL EXAMINATION: The patient is alert and oriented x3. The pulse is 57, blood pressure 125/54, respiration 20, temperature 97.4, pulse ox 98% on room air. HEENT: Conjunctivae normal. Oral mucosa moist. Neck is no jugular venous distention. No carotid bruit. No lymph node enlargement. CARDIOVASCULAR: S1 and S2 muffled. RESPIRATORY: Breath sounds diminished at the bases. No rhonchi, no crackles. ABDOMEN: Soft, nontender. No mass palpable. LEGS: No edema, no swelling. NERVOUS SYSTEM: Higher functions as mentioned. Moves all 4 limbs. No focal motor deficit. LYMPHATICS: No lymphadenopathy of the neck, axillae or groin. SKIN: No ulcer, rash or bleeding. JOINTS: No active deforming arthropathy. LABS: CBC within normal limits. Creatinine 1.40. ASSESSMENT: 1. Diplopia possible acute transient ischemic attack. 2. Increased creatinine with possible chronic kidney disease stage 3. 3. Coronary artery disease, CABG. 4. Diabetes mellitus type 2. 5. Hypertension. 6. Hyperlipidemia. 7. History of degenerative joint disease. 8. History of urinary calculus. RECOMMENDATION AND DISCUSSION: This 68-year-old gentleman who presented with multiple complex medical issues. At this time, I will monitor the patient closely. Continue the current medications with antiplatelet agents. Neurology evaluation. Full neurovascular workup. I would also order an MRI. Otherwise home medications will be reconciled. Prognosis guarded because of multiple complex medical issues. Further recommendations to follow. A 2-D echo with Doppler has been ordered. I would also recommend a vascular consultation, also. MMODL / IJN: [id number] / MTDD
[2018-02-08 10:00] VITALS: RESP 18
[2018-02-08] MEDS: ALPRAZolam 0.25 MG TAB PO PRN (10:09)
--- NOTE | 2018-02-08 11:08 | MR ---
MR brain without contrast HISTORY: Stroke, vision changes Multiplanar multisequence imaging through the brain and correlated to prior CT brain 08/05/2017 There is no restricted diffusion to suggest subacute infarct. Cortical atrophy is likely age-related. There are scattered hyperintensities within the subcortical, periventricular, pericallosal white mat ter, approximately 5-10 lesions are present, largest in the pericallosal region on axial image 23 tiana sures approximately 5 mm. There is no hemorrhage or hydrocephalus. Normal vascular flow voids are pre sent. There is some motion on the exam which may limit sensitivity. The orbits show a symmetric appea frances. Cerebellopontine angles, corpus callosum, pituitary, cervical medullary junction are normal. M ild mucosal disease present in the maxillary sinus on the right, ethmoid air cells. IMPRESSION: Nonspecific white matter demyelination may be related to chronic small vessel ischemia. A ge-related atrophy. No abnormality evident to account for patient's symptoms.
[2018-02-08 12:29] LABS: Glucose,Whole Blood 124 mg/dL (75-99)
--- NOTE | 2018-02-08 12:49 | P.PN ---
Progress Note - Text 68-year-old white male, patient came with history of double vision both I with complete recovery. Patient has a right shoulder rotator cuff he is scheduled to have a surgery next week patient does not give any history of motor deficit to the upper or lower extremity. CT of the carotid shows 75% stenosis bilateral and also some left subclavian stenosis. CT of the brain shows no evidence of infarction. MRI of the brain done today patient has H is related to small vessel disease no evidence of acute infarction or bleeding Plan is we will continue with antiplatelet therapy I will discuss with internal medicine and neurology follow with you
--- NOTE | 2018-02-08 13:43 | CONS ---
CONSULTATION This is a 68-year-old gentleman who has been to admitted to [facility] with history of some difficulty in bilateral visions. According to the patient, patient has blurring of the vision when he looks up, but no history of loss of vision. This happened only one time. After that patient had no further symptoms. He does not give any history of any motor weakness. He has a right rotator cuff, but no history of any weakness on the right arm. The patient had a CT scan of the brain which showed no evidence of infarction noted. The patient had a CT of the carotid which showed bilateral 75% stenosis and 50% in left subclavian artery. Vertebral arteries are patent and intracranial vessels are visualized. MEDICAL HISTORY: History of coronary artery disease, history of diabetes mellitus, history of hypertension, history of hyperlipidemia, history of kidney stone, surgical bowel resection, history of CABG. PERSONAL HISTORY: Allergic to PENICILLIN and SULFA. PHYSICAL EXAMINATION: The patient was seen in his room. He is in sitting position. His vital signs are stable. Neck is supple. No bruit appreciated. Chest is clear on auscultation. First and second sounds normal. Abdomen is soft, nontender. VASCULAR EXAMINATION: Brachial, radial and femoral pulses are present. CENTRAL NERVOUS SYSTEM: Patient oriented to time and place. Patient has a very strong motor function upper and lower extremities. IMPRESSION: Bilateral 75% stenosis , 50% left subclavian artery. The patient is scheduled to have an MRI done today and recommend to have neuro consult and follow with you. Patient will be put on antiplatelet therapy. MMODL / IJN: [id number] /
[2018-02-08 16:42] LABS: Glucose,Whole Blood 276 mg/dL (75-99)
--- NOTE | 2018-02-08 16:51 | ECHOF ---
Referral Reason:Thrombus MEASUREMENTS -------- HEIGHT: 177.8 cm WEIGHT: 90.7 kg BP: 149/68 RVIDd: 4.2 cm (< 3.3) IVSd: 1.3 cm (0.6 - 1.1) LVIDd: 5.3 cm (3.9 - 5.3) LVPWd: 1.4 cm (0.6 - 1.1) IVSs: 2.0 cm LVIDs: 3.2 cm LVPWs: 1.9 cm LA Diam: 4.9 cm (2.7 - 3.8) LAESV Index (A-L): 35.76 ml/m Ao Diam: 3.1 cm (2.0 - 3.7) AV Cusp: 1.3 cm (1.5 - 2.6) MV EXCURSION: 17.701 mm (> 18.000) MV EF SLOPE: 42 mm/s (70 - 150) EPSS: 0.7 cm MV E Aguila: 1.17 m/s MV DecT: 215 ms MV A Aguila: 0.99 m/s MV E/A Ratio: 1.18 AV maxP.28 mmHg AV meanP.64 mmHg RAP: 5.00 mmHg RVSP: 28.31 mmHg FINDINGS -------- Sinus rhythm. This was a technically adequate study. The left ventricular size is normal. There is moderate concentric left ventricular hypertrophy. O verall left ventricular systolic function is normal with, an EF between 55 - 60 %. The right ventricle is severely enlarged. LA is moderately dilated 34-39 ml/m2 The right atrium is normal in size. There is mild aortic valve sclerosis. There is mild aortic stenosis present. Peak/mean gradient a cross the Aortic Valve is 22.28mmHg / 10.64mmHg. Mild mitral annular calcification present. Mild mitral regurgitation is present. Mild tricuspid regurgitation present. Right ventricular systolic pressure is normal at < 35 mmHg. The pulmonic valve was not well visualized. There is no pulmonic regurgitation present. The aortic root size is normal. Normal inferior vena cava with normal inspiratory collapse consistent with estimated right atrial pre ssure of 5 mmHg. There is no pericardial effusion. CONCLUSIONS -------- 1. Sinus rhythm. 2. This was a technically adequate study. 3. The left ventricular size is normal. 4. There is moderate concentric left ventricular hypertrophy. 5. Overall left ventricular systolic function is normal with, an EF between 55 - 60 %. 6. The right ventricle is severely enlarged. 7. LA is moderately dilated 34-39 ml/m2 8. The right atrium is normal in size. 9. There is mild aortic valve sclerosis. 10. There is mild aortic stenosis present. 11. Peak/mean gradient across the Aortic Valve is 22.28mmHg / 10.64mmHg. 12. Mild mitral annular calcification present. 13. Mild mitral regurgitation is present. 14. Mild tricuspid regurgitation present. 15. Right ventricular systolic pressure is normal at < 35 mmHg. 16. The pulmonic valve was not well visualized. 17. There is no pulmonic regurgitation present. 18. The aortic root size is normal. 19. Normal inferior vena cava with normal inspiratory collapse consistent with estimated right atrial pressure of 5 mmHg. 20. There is no pericardial effusion. TDP DISPLAYS ANALYST: Samina Hernandez RDCS
--- NOTE | 2018-02-08 17:08 | P.CNNES ---
History of Present Illness Consult date: 02/08/18 Requesting physician: Houston Rosales Reason for Consult: Vision Changes Chief complaint: Vision Changes History of Present Illness: Neurology is consulting on a 68 year old male for blurry vision overlapping vision. Patient states that he had a one-time occurrence of visual changes that involved blurry vision with overlapping vision for approximately 90 seconds to 3 minutes. Patient states that when he covered one eye he had clear vision. However when he attempted to use both eyes he had the noted changes. Patient stated he had never had an occurrence prior to this event. Patient has denied any repeat occurrence since the initial event. Patient presented at the ED for evaluation. CT angiogram noted moderate plaque formation with more than 75% stenosis of both internal carotid arteries. No evidence of intracranial aneurysm or stenosis. CT brain noted mild atrophy. No acute intracranial abnormality. MRI brain noted nonspecific white matter demyelination may be related to chronic small vessel ischemia. Age-related atrophy. No abnormality evident to account for patient's symptoms. On contact, patient was alert and oriented 3, resting in bed in no acute distress. Review of Systems systems not noted in HPI are negative Past Medical History Past Medical History: Coronary Artery Disease (CAD), Diabetes Mellitus, Hyperlipidemia, Hypertension, Osteoarthritis (OA), Prostate Disorder, Vascular Disorder Additional Past Medical History / Comment(s): Hx: Urinary calculus, diverticulitis,. EDEMA KASSANDRA LEGS. TINY WOUND rt MARSHALL, (WAS TREATED IN WOUND CLINIC IN PAST) KEEPS DRESSING WITH MEDIHONEY, NO DRAINAGE. History of Any Multi-Drug Resistant Organisms: None Reported Past Surgical History: Bowel Resection, Cholecystectomy, Coronary Bypass/CABG, Heart Catheterization, Hernia Repair, Joint Replacement, Orthopedic Surgery Additional Past Surgical History / Comment(s): ORIF Rt ankle, stent in abdomen. Left knee arthroscopy, Total lt knee replacement. COLONOSCOPY. CHRONrtSHIN WOUND. CABG-11/30/2009 Past Anesthesia/Blood Transfusion Reactions: No Reported Reaction Additional Past Anesthesia/Blood Transfusion Reaction / Comment(s): (ADOPTED) Past Psychological History: No Psychological Hx Reported Smoking Status: Never smoker Past Alcohol Use History: None Reported Additional Past Alcohol Use History / Comment(s): "many years," QUIT 1992, PLUS 2nd hand smoke R/T JOB. Past Drug Use History: None Reported - Past Family History Mother Family Medical History: Unable to Obtain Additional Family Medical History / Comment(s): adopted Medications and Allergies Home Medications Medication Instructions Recorded Confirmed Type Allopurinol [Zyloprim] 300 mg PO DAILY 07/28/13 02/08/18 History glipiZIDE [Glucotrol XL] 10 mg PO DAILY 07/28/13 02/08/18 History Atorvastatin [Lipitor] 40 mg PO DAILY 01/28/18 02/08/18 History Clopidogrel [Plavix] 75 mg PO DAILY 01/28/18 02/08/18 History Tamsulosin HCl [Flomax] 0.4 mg PO DAILY 01/28/18 02/08/18 History HYDROcodone/APAP 10-325MG [[place] 1 tab PO QID 02/08/18 02/08/18 History 10-325] Metoprolol Tartrate [Lopressor] 25 mg PO BID 02/08/18 02/08/18 History amLODIPine [Norvasc] 10 mg PO DAILY 02/08/18 02/08/18 History metFORMIN HCL [Glucophage] 500 mg PO TID 02/08/18 02/08/18 History Allergies Allergy/AdvReac Type Severity Reaction Status Date / Time Penicillins Allergy Itching Verified 02/07/18 16:12 Sulfa (Sulfonamide Allergy Unknown Verified 02/07/18 16:12 Antibiotics) Physical Examination - Vital Signs Vital Signs: Vital Signs Temp Pulse Pulse Resp BP BP Pulse Ox 02/08/18 11:30 97.5 F L 67 18 162/71 97 02/08/18 07:55 97.6 F 58 L 18 148/75 98 02/08/18 04:06 97.0 F L 60 16 149/68 98 02/08/18 04:00 97.0 F L 60 16 149/68 98 02/08/18 00:00 97.4 F L 57 L 16 118/66 97 02/07/18 23:54 97.8 F 56 L 16 118/72 97 02/07/18 21:28 97.8 F 56 L 16 118/72 97 02/07/18 19:54 57 L 16 131/80 99 02/07/18 17:30 51 L 18 143/65 96 02/07/18 17:00 57 L 20 125/54 97 Intake and Output 02/08/18 02/08/18 02/08/18 06:59 14:59 22:59 Intake Total 1662 Balance 1662 Intake: Intake, IV Titration 1200 Amount Sodium Chloride 0.9% 1, 600 000 ml @ 75 mls/hr IV . [id number] MEG Rx#:[id number] Sodium Chloride 0.9% 1, 600 000 ml @ 999 mls/hr IV . Q1H1M STA Rx#:[id number] Oral 462 Other: Voiding Method Toilet Urinal # Voids 1 Weight 90.718 kg General appearance: Alert & oriented x3, no apparent distress. Head: Atraumatic, normocephalic, normal inspection Eyes: PERRLA, EOMI. Absent scleral icterus, conjunctival injection, nystagmus, periorbital swelling. Ear, nose and throat: Normal exam, mucous membranes moist Neck: Normal inspection, absent tenderness, lymphadenopathy. Respiratory: No increased work of breathing Cardiovascular: Regular rate, rhythm GI/abdominal: No guarding, no rigidity Extremities: moves all extremities Neurological: cranial nerves II through XII intact no lateralizing weakness no seizure activity noted on physical exam no pronator drift and no nystagmus. Strength: full in all 4 extremities, pain left upper extremity/shoulder rotator cuff injury Sensation: Left lower extremity: normal Right lower extremity: normal Left upper extremity: normal Right upper extremity:normal Psychological: Mood and Affect appropriate for setting Results serum homocysteine level normal Lipid panel within normal limits as noted - Laboratory Findings CBC and BMP: 02/08/18 06:15 02/08/18 06:15 Abnormal Lab Findings: Abnormal Labs 02/07/18 02/07/18 02/07/18 16:00 16:00 19:57 RBC 4.02 L Hgb Hct MCV Chloride BUN 28 H Creatinine 1.40 H Glucose 103 H POC Glucose (mg/dL) 149 H Alkaline Phosphatase 130 H Urine Protein Urine Glucose (UA) 02/07/18 02/07/18 02/08/18 19:58 21:24 06:15 RBC Hgb Hct MCV Chloride 110 H BUN Creatinine Glucose 62 L POC Glucose (mg/dL) 122 H Alkaline Phosphatase Urine Protein Trace H Urine Glucose (UA) Trace H 02/08/18 02/08/18 02/08/18 06:15 11:35 16:40 RBC 3.68 L Hgb 12.1 L Hct 37.1 L MCV 100.8 H Chloride BUN Creatinine Glucose POC Glucose (mg/dL) 124 H 276 H Alkaline Phosphatase Urine Protein Urine Glucose (UA) Assessment and Plan (1) Transient cerebral ischemia Current Visit: Yes Status: Acute Code(s): G45.9 - TRANSIENT CEREBRAL ISCHEMIC ATTACK, UNSPECIFIED SNOMED Code(s): 599457327 (2) Vision changes Current Visit: Yes Status: Acute Code(s): H53.9 - UNSPECIFIED VISUAL DISTURBANCE SNOMED Code(s): 474480831 (3) Carotid stenosis Current Visit: Yes Status: Acute Code(s): I65.29 - OCCLUSION AND STENOSIS OF UNSPECIFIED CAROTID ARTERY SNOMED Code(s): 47667475 Plan: Patient's physical exam findings and symptoms along with current diagnostic workup results appear more consistent with TIA. Patient does have noted carotid stenosis and symptoms resolved within only 1 time occurrence. Patient is currently on aspirin therapy 325 mg daily. Continue medication therapy as noted. Although patient's lipid panel is within normal limits given the patient 's carotid stenosis, patient will need to maintain antihyperlipidemic medication as noted Lipitor at existing dose and frequency both inpatient and in the outpatient setting. Vascular surgery is already on consult for the noted vascular changes. EEG is ordered. Neuro checks every shift. neurology will continue to follow and provide updates as needed or warranted. I have discussed the plan of care with the physician prior to implementation and he agrees with the plan as implemented.
[2018-02-08 17:21] LABS: Hemoglobin A1C 5.7 % (4.0-6.0)
--- NOTE | 2018-02-08 19:19 | PN ---
PROGRESS NOTE DATE OF SERVICE: 02/08/2018. HISTORY: This 68-year-old gentleman admitted with visual changes and possible TIA. The patient also had bilateral carotid stenosis also. Brain MRI showed nonspecific white matter demyelination related to chronic small vessel ischemia. Dr. Arizmendi and Neurology are following the patient closely. No chest pain. No palpitations. No fever. A 2D echo with Doppler showed ejection fraction about 50% to 60%. Mild valvular abnormalities. EXAM: Alert and oriented x2. Pulse is 85, blood pressure 180/85, respirations 18, temperature 97.4, pulse ox 97% on room air. HEENT: Conjunctivae normal. NECK: No JVD. CARDIOVASCULAR: S1 and S2 muffled. LUNGS: Breath sounds diminished at the bases. No rhonchi, no crackles. ABDOMEN: Soft, nontender. LEGS: No edema. NERVOUS SYSTEM: No focal deficits. LABS: WBC 8.2, hemoglobin 12.1. Accu-Cheks 776. ASSESSMENT: 1. Diplopia, possible acute transient ischemic attack. 2. Bilateral carotid stenosis. 3. Increased creatinine, with possible chronic kidney stage III. 4. Coronary artery disease with coronary artery bypass grafting. 5. Diabetes mellitus type 2. 6. Hypertension. 7. History of degenerative joint disease. 8. History of urinary calculus. RECOMMENDATIONS: Recommend to continue current management and continue with monitoring and symptomatic treatment. Continue with antiplatelet agents. Continue with hyperlipidemic agent. The patient is on Lipitor and aspirin. Will also add small dose of beta blockers and continue to monitor. Guarded prognosis because of multiple consultations. Further recommendations to follow. Dr. Arizmendi's input appreciated. MMUMERL / IJN: [id number] /
[2018-02-08] MEDS ORDERED: ATORVASTATIN 20 MG TAB PO SCH (21:00)
[2018-02-08 21:18] LABS: Glucose,Whole Blood 119 mg/dL (75-99)
[2018-02-08] MEDS: METOPROLOL TARTRATE 12.5 MG TAB PO SCH (21:46)
[2018-02-09 06:07] LABS: Glucose,Whole Blood 112 mg/dL (75-99)
[2018-02-09] MEDS: INSULIN ASPART 100 UNIT/ML 1 ML 10 ML VIAL SQ SCH (06:31)
[2018-02-09] MEDS: PANTOPRAZOLE 40 MG TABLET PO SCH (06:44)
[2018-02-09 07:31] LABS: Potassium 4.3 mmol/L (3.5-5.1)
[2018-02-09 07:35] LABS: Basophils # (A) 0.1 k/uL (0-0.2); Basophils % (A) 1 %; Eosinophils # (A) 0.2 k/uL (0-0.7); Eosinophils % (A) 3 %; HCT 39.1 % (39.0-53.0); HGB 12.9 gm/dL (13.0-17.5); Lymphocytes # (A) 1.9 k/uL (1.0-4.8); Lymphocytes % (A) 21 %; MCH 33.2 pg (25.0-35.0); MCHC 33.1 g/dL (31.0-37.0); MCV 100.5 fL (80.0-100.0); Monocytes # (A) 0.7 k/uL (0-1.0); Monocytes % (A) 7 %; Neutrophils # (A) 5.9 k/uL (1.3-7.7); Neutrophils % (A) 67 %; Platelet Count 236 k/uL (150-450); RBC 3.89 m/uL (4.30-5.90); RDW 13.3 % (11.5-15.5); WBC 8.8 k/uL (3.8-10.6)
[2018-02-09 08:06] LABS: Anion Gap 8 mmol/L; Blood Urea Nitrogen 20 mg/dL (9-20); Calcium 8.7 mg/dL (8.4-10.2); Carbon Dioxide 24 mmol/L (22-30); Chloride 108 mmol/L (98-107); Glucose 115 mg/dL (74-99); Sodium 140 mmol/L (137-145)
[2018-02-09 08:30] VITALS: BP 147/71; PULSE 68; TEMP 99
[2018-02-09] MEDS: HEPARIN SODIUM,PORCINE 5,000 UNIT/ML 1 ML VIAL SQ SCH (08:30)
[2018-02-09] MEDS: ASPIRIN 325 MG TAB PO SCH (08:34)
[2018-02-09] MEDS: METOPROLOL TARTRATE 12.5 MG TAB PO SCH (08:34)
--- NOTE | 2018-02-09 11:08 | EEG ---
ELECTROENCEPHALOGRAM REPORT DATE OF SERVICE: 02/08/2018 REASON FOR TESTING: Altered mental status. DESCRIPTION OF THE PROCEDURE: This EEG was performed using a 21 channel digital electroencephalograph, following international 10-20 system. DESCRIPTION OF THE RECORDING: From the beginning of the tracing, and with patient's eyes closed, the background rhythm was mostly consisting of 9 Hz alpha frequency in the posterior occipital leads. No obvious asymmetry is seen. Photic stimulation was performed with a minimal driving response seen. No pathological waves were elicited. Hyperventilation was not performed. Rare movement artifacts are seen. The patient remains awake throughout the tracing. No epileptiform discharges were seen. His EKG lead showed a regular rate and rhythm. INTERPRETATION: This awake EEG can be considered within normal limits. There was no asymmetry seen. No epileptiform discharges were noticed. The absence of epileptiform discharges does not rule out the diagnosis of epilepsy; therefore clinical correlation is recommended. MMCONCHITA / IJVerenice: [id number] /
--- NOTE | 2018-02-09 16:08 | P.PN ---
Subjective Progress Note Date: 02/09/18 Principal diagnosis: TIA Neurology is following a 68-year-old male for TIA. patient had complaints of blurry overlapping vision. Was a one-time occurrence with changes involve approximately 90 seconds to 3 minutes. Patient stated that when he covered one eye he had clear vision however when he attempted to use both eyes he had the noted changes. Patient stated he had never had an occurrence prior to this event. Patient has denied any repeat occurrences since the initial event. Patient presented to the ED for evaluation. CT angiogram noted moderate plaque formation with more than 75% stenosis of both internal carotid arteries. No evidence of intracranial aneurysm or stenosis. CT brain noted mild atrophy. No acute intracranial abnormality. MRI brain noted nonspecific white matter demyelination may be related to chronic small vessel ischemia. Age-related atrophy. No abnormality evident to account for patient's symptoms. On contact, patient was alert and oriented 3, seated in bedside chair, no acute distress. No patient visitors or family in the room. Patient was evaluated by vascular surgery. Patient states that he will be following with vascular surgery in the outpatient setting for further vascular workup and possible intervention. Patient is due to have left rotator cuff surgery next week. Objective - Vital Signs Vital signs: Vital Signs Temp 99.0 F 02/09/18 08:00 Pulse 68 02/09/18 08:00 Resp 18 02/09/18 08:00 BP 147/71 02/09/18 08:00 Pulse Ox 99 02/09/18 08:00 Intake & Output 02/08/18 02/09/18 02/09/18 18:59 06:59 18:59 Intake Total 1902 360 Balance 1902 360 Weight 92.1 kg Intake: Intake, IV Titration 1200 Amount Sodium Chloride 0.9% 1, 600 000 ml @ 75 mls/hr IV . [id number] MEG Rx#:[id number] Sodium Chloride 0.9% 1, 600 000 ml @ 999 mls/hr IV . Q1H1M STA Rx#:[id number] Oral 702 360 Other: Voiding Method Toilet Urinal # Voids 1 1 - Exam General appearance: Alert & oriented x3, no apparent distress. Head: Atraumatic, normocephalic, normal inspection Eyes: PERRLA, EOMI. Absent scleral icterus, conjunctival injection, nystagmus, periorbital swelling. Ear, nose and throat: Normal exam, mucous membranes moist Neck: Normal inspection, absent tenderness, lymphadenopathy. Respiratory: No increased work of breathing Cardiovascular: Regular rate, rhythm GI/abdominal: No guarding, no rigidity Extremities: moves all extremities Neurological: cranial nerves II through XII intact no lateralizing weakness no seizure activity noted on physical exam no pronator drift and no nystagmus. Strength: full in all 4 extremities, pain with movement of left upper extremity due to noted right rotator cuff tear. Sensation: Left lower extremity: normal Right lower extremity: normal Left upper extremity: normal Right upper extremity:normal Psychological: Mood and Affect appropriate for setting - Labs CBC & Chem 7: 02/09/18 06:38 02/09/18 06:38 Labs: Abnormal Lab Results - Last 24 Hours (Table) 02/08/18 02/08/18 02/09/18 Range/Units 16:40 21:11 06:05 RBC (4.30-5.90) m/uL Hgb (13.0-17.5) gm/dL MCV (80.0-100.0) fL Chloride (98-107) mmol/L Glucose (74-99) mg/dL POC Glucose (mg/dL) 276 H 119 H 112 H (75-99) mg/dL 02/09/18 02/09/18 Range/Units 06:38 06:38 RBC 3.89 L (4.30-5.90) m/uL Hgb 12.9 L (13.0-17.5) gm/dL MCV 100.5 H (80.0-100.0) fL Chloride 108 H (98-107) mmol/L Glucose 115 H (74-99) mg/dL POC Glucose (mg/dL) (75-99) mg/dL Assessment and Plan (1) Transient cerebral ischemia Status: Acute Code(s): G45.9 - TRANSIENT CEREBRAL ISCHEMIC ATTACK, UNSPECIFIED SNOMED Code(s): 303979925 (2) Vision changes Status: Acute Code(s): H53.9 - UNSPECIFIED VISUAL DISTURBANCE SNOMED Code(s) : 112644941 (3) Carotid stenosis Status: Acute Code(s): I65.29 - OCCLUSION AND STENOSIS OF UNSPECIFIED CAROTID ARTERY SNOMED Code(s): 48243764 Plan: Patient's physical exam findings and symptoms along with current diagnostic workup results appear more consistent with TIA. Patient does have noted carotid stenosis and symptoms resolved within only 1 time occurrence. Patient is currently on aspirin therapy 325 mg daily. Continue medication therapy as noted. Although patient's lipid panel is within normal limits given the patient 's carotid stenosis, patient will need to maintain antihyperlipidemic medication as noted Lipitor at existing dose and frequency both inpatient and in the outpatient setting. Vascular surgery is commanding further outpatient consult for carotid stenosis and possible intervention at a later date. EEG is taken. Neuro checks every shift. Neurology will clear the patient for discharge from a neurological standpoint. I have discussed the plan of care with the physician prior to implementation and he agrees with the plan as implemented.
--- NOTE | 2018-02-10 08:08 | DS ---
DISCHARGE SUMMARY DATE OF SERVICE: 02/09/2018 FINAL DIAGNOSES: 1. Diplopia possible acute transient ischemic attack, rule out acute stroke. 2. Bilateral carotid artery stenosis. 3. Increased creatinine with possible chronic kidney stage III. 4. Coronary artery disease, coronary artery bypass grafting. 5. Diabetes type 2. 6. Hypertension. 7. Degenerative joint disease. 8. History of urinary calculi. DISCHARGE DISPOSITION: The patient left the hospital AGAINST MEDICAL ADVICE. HISTORY OF PRESENT ILLNESS: This 68-year-old gentleman with a past medical history of multiple medical problems was admitted with multiple medical problems as mentioned earlier. The patient seen by vascular surgery and neurology but however the patient left the hospital AGAINST MEDICAL ADVICE before complete medical . The prognosis remained extremely guarded throughout hospitalization. Please refer to multiple progress notes, staff notes and further notes for further information. MMODL / IJN: [id number] / MTDD
== END 2018-02-09 11:14 | disposition left against medical advice (07) | DRG 69 ==
LOC: EC 15:37 → 3SCARD 19:11 → OBSVTOIN 02-09 11:14 → UNDODISOB 02-09 11:14 → INTOOBSV 02-11 23:07 → OBSVTOIN 02-11 23:07
PROVIDERS: ADMIT Hospitalist; ATTEND Hospitalist
DX: G45.9 Transient cerebral ischemic attack, unspecified (principal); I63.233 Cerebral infarction due to unspecified occlusion or stenosis of bilateral carotid arteries; E11.51 Type 2 diabetes mellitus with diabetic peripheral angiopathy without gangrene; E78.5 Hyperlipidemia, unspecified; H49.02 Third [oculomotor] nerve palsy, left eye; I25.10 Atherosclerotic heart disease of native coronary artery without angina pectoris; I70.8 Atherosclerosis of other arteries; M19.90 Unspecified osteoarthritis, unspecified site; Z79.02 Long term (current) use of antithrombotics/antiplatelets; Z79.82 Long term (current) use of aspirin; Z79.899 Other long term (current) drug therapy; Z87.442 Personal history of urinary calculi; Z87.891 Personal history of nicotine dependence; Z88.0 Allergy status to penicillin; Z88.2 Allergy status to sulfonamides; Z95.1 Presence of aortocoronary bypass graft; Z96.652 Presence of left artificial knee joint; I12.9 Hypertensive chronic kidney disease with stage 1 through stage 4 chronic kidney disease, or unspecified chronic kidney disease; N18.3 Chronic kidney disease, stage 3 (moderate); E11.22 Type 2 diabetes mellitus with diabetic chronic kidney disease
CPT/HCPCS: 36415; 70450; 70496; 70498; 70551; 80048; 80053; 80061; 81003; 82550; 82553; 83036; 83090; 84484; 85025; 85610; 85730; 93005; 93306; 95816

== ENCOUNTER → 2019-07-31 | Outpatient (CLI) | payer MEDICARE ==
--- NOTE | 2019-07-31 14:40 | XR ---
EXAMINATION TYPE: XR cervical spine comp DATE OF EXAM: 07/31/2019 TECHNIQUE: Frontal, lateral, oblique, swimmers, and open mouth view of the cervical spine are obtaine d. HISTORY: M54.2 COMPARISON: CTA neck February 07, 2018 FINDINGS: The cervical spine is only visualized to mid C7 level despite attempted swimmer's view due to osseous overlap. Suboptimal evaluation of C7-T1 level. Alignment stable and satisfactory. Osseous structures are demineralized. The pre-vertebral soft tissue appears within normal limits. The C1-C2 articulation is within normal limits on the open mouth view. Stable mild disc space narrowing C3-C4, C5-C6, and C6-C7 levels. Vertebral body heights maintained. The oblique images show uncovertebral fa cet spurring causing bilateral neural foraminal narrowing at multiple levels. Prominent calcified reji que in the left common and internal carotid artery noted. Old left midclavicular fracture seen. Overl avi sternal wires partially imaged. IMPRESSION: As above.
== END | disposition home or self-care (01) ==
LOC: RADXRMAIN 14:10
PROVIDERS: ATTEND Family Medicine
DX: M99.71 Connective tissue and disc stenosis of intervertebral foramina of cervical region (principal); M48.02 Spinal stenosis, cervical region
CPT/HCPCS: 72050

== ENCOUNTER → 2019-08-07 | Outpatient (CLI) | payer MEDICARE ==
--- NOTE | 2019-08-07 11:56 | XR ---
Right leg HISTORY: Chronic ulcer Frontal and lateral views of the right leg submitted and correlated to prior exam dated 01/23/2013 There is no significant interval change. Dense vascular calcifications are noted. Postop change and c hronic deformities of the tibia and fibula again seen. Soft tissue swelling is present. Soft tissue c alcifications present medial to the distal metadiaphyseal right tibia may be dystrophic or due to smita ous stasis disease. IMPRESSION: No significant interval change. Findings consistent with remote trauma, difficult to excl ude chronic osteomyelitis, cellulitis.
== END | disposition home or self-care (01) ==
LOC: RADXRMAIN 11:21
PROVIDERS: ATTEND Family Medicine
DX: L97.209 Non-pressure chronic ulcer of unspecified calf with unspecified severity (principal)

== ENCOUNTER → 2019-08-29 | Outpatient (CLI) | payer MEDICARE, OTHER ==
--- NOTE | 2019-08-31 19:20 | NM ---
EXAMINATION TYPE: NM bone 3 phase DATE OF EXAM: 08/29/2019 COMPARISON: Right tibia/fibular radiographs 08/07/2019 HISTORY: 69-year-old male nonpressure chronic ulcer, L97.290, of the right calf. Patient reports a hi story of prior left knee replacement 10 years ago. Aches and pains all over. TECHNIQUE: Triple phase bone scintigraphy was performed following the injection of 23.9 mCi Tc 99m MD P. Immediate images and 3.5 hours post injection images acquired. Imaging was centered along the digna ateral legs. Delayed images included the entire body. FINDINGS: Flow images show no significant asymmetry from side to side. Pool images show focal increased soft tissue uptake along the medial aspect of the mid to distal thir d right leg. When correlating with radiographs, soft tissues appear very thin in this region with pro tuberant bone. Delayed scan shows focal increased activity in this region as well. Additional focal increased activi ty at the right lateral malleolus. When evaluating the entire body, there is increased degenerative tracer activity at the shoulders, st ernoclavicular joints, along the posterior elements of the cervical spine especially on the left, at the thoracolumbar junction, base of the thumbs, bilateral knees, left first MTP joint, and base of th e left thumb. There is also foci of increased tracer activity involving multiple left-sided mid to lo wer ribs in a linear distribution suggesting a posttraumatic etiology. IMPRESSION: 1. Two-phase bone scan abnormality along the medial aspect of the mid to distal third right leg at th e site of hypertrophic chronic fracture deformity on radiograph. Based on these scintigraphic finding s, unable to exclude osteomyelitis here. 2. Extensive degenerative tracer activity throughout the body as mentioned above. Additional foci of activity involving multiple left mid and lower ribs in a linear distribution suggesting a post trauma tic etiology. This should be confirmed clinically.
== END | disposition home or self-care (01) ==
LOC: RADNMMAIN 10:09
PROVIDERS: ATTEND Family Medicine
DX: R93.7 Abnormal findings on diagnostic imaging of other parts of musculoskeletal system (principal); L97.209 Non-pressure chronic ulcer of unspecified calf with unspecified severity
CPT/HCPCS: 78315; A9503

== ENCOUNTER → 2019-10-10 | Outpatient (CLI) | payer MEDICARE, OTHER ==
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
== END ==
LOC: RADXRMAIN 16:09
PROVIDERS: ATTEND Orthopaedic Surgery Orthopaedic Surgery of the Spine
DX: J84.89 Other specified interstitial pulmonary diseases (principal)
CPT/HCPCS: 71046

== ENCOUNTER → 2019-11-03 | Outpatient (CLI) | payer OTHER, MEDICARE ==
[2019-11-03 15:27] LABS: Basophils # (A) 0.1 k/uL (0-0.2); Basophils % (A) 1 %; Eosinophils # (A) 0.1 k/uL (0-0.7); Eosinophils % (A) 2 %; HCT 41.5 % (39.0-53.0); HGB 12.9 gm/dL (13.0-17.5); Lymphocytes # (A) 1.5 k/uL (1.0-4.8); Lymphocytes % (A) 19 %; MCH 31.8 pg (25.0-35.0); MCV 102.6 fL (80.0-100.0); Macrocytosis Slight; Mean Platelet Volume 7.4; Monocytes # (A) 0.5 k/uL (0-1.0); Monocytes % (A) 6 %; Neutrophils # (A) 5.3 k/uL (1.3-7.7); Neutrophils % (A) 70 %; Platelet Count 239 k/uL (150-450); RBC 4.05 m/uL (4.30-5.90); RDW 13.8 % (11.5-15.5); WBC 7.6 k/uL (3.8-10.6)
[2019-11-03 15:44] LABS: Partial Thromboplastin Time 24.4 sec (22.0-30.0); Prothrombin Time 10.4 sec (9.0-12.0)
[2019-11-03 15:47] LABS: ALT 38 U/L (4-49); AST 26 U/L (17-59); African American GFR (CKD) >90 (>60 ml/min/1.73 sqM); Albumin 4.1 g/dL (3.5-5.0); Alkaline Phosphatase 168 U/L (38-126); Anion Gap 7 mmol/L; Blood Urea Nitrogen 18 mg/dL (9-20); Calcium 9.3 mg/dL (8.4-10.2); Carbon Dioxide 26 mmol/L (22-30); Chloride 105 mmol/L (98-107); Glucose 135 mg/dL (74-99); Non-African American GFR(CKD) >90 (>60 ml/min/1.73 sqM); Potassium 4.8 mmol/L (3.5-5.1); Sodium 138 mmol/L (137-145); Total Bilirubin 0.6 mg/dL (0.2-1.3)
--- NOTE | 2019-11-03 20:47 | XR ---
EXAMINATION TYPE: XR chest 2V DATE OF EXAM: 11/03/2019 CLINICAL HISTORY: Presurgical. History of cardiac surgery. TECHNIQUE: Frontal and lateral views of the chest are obtained. COMPARISON: 10/10/2019 chest radiograph FINDINGS: Sternotomy wires. The cardiomediastinal silhouette is within normal limits for size. Pulmo nary vasculature is normal. Unchanged interstitial coarsening. There is no focal air space opacity, p leural effusion, or pneumothorax seen. Old left-sided rib and clavicle deformities. IMPRESSION: Unchanged radiographic appearance of the chest versus 10/10/2019 comparison, with coarsened interstiti al lung markings.
== END | disposition home or self-care (01) ==
LOC: RADXRMAIN 13:32
PROVIDERS: ATTEND Orthopaedic Surgery Orthopaedic Surgery of the Spine
DX: Z01.818 Encounter for other preprocedural examination (principal); Z79.01 Long term (current) use of anticoagulants; M48.02 Spinal stenosis, cervical region; E11.9 Type 2 diabetes mellitus without complications
CPT/HCPCS: 71046; 80053; 85025; 85610; 85730

== ENCOUNTER 2019-11-10 08:25 | Day surgery (SDC) | payer MEDICARE, OTHER ==
[2019-11-04 11:03] VITALS: BMI 25.8
[~2019-11-10 08:25] MED LIST changes: -ALPRAZolam 0.25 MG TAB PO PRN; -ASPIRIN 325 MG TAB PO ONE; +HYDROmorphone 0.5 MG/0.5 ML SYRINGE IVP PRN; +LACTATED RINGERS 1,000 ML IV SCH; +LIDOCAINE 1% (10MG/ML) FOR IV START INTRADERMA PRN; -NITROGLYCERIN SL TABS 0.4 MG TAB SUBLINGUAL PRN; +ONDANSETRON 4 MG/2 ML VIAL IVP ONE; +ONDANSETRON 4 MG/2 ML VIAL ONE; -SODIUM CHLORIDE 0.9% 1,000 ML in EMPTY BAG 1 BAG IV ONE; +ceFAZolin 1,000 MG in SODIUM CHLORIDE 0.9% IRRIGATIO 1,000 ML IRRIGATION ONE
[2019-11-10] MEDS ORDERED: MIDAZOLAM 2 MG/2 ML VIAL IV ONE (08:26)
[2019-11-10] MEDS ORDERED: WATER FOR INJECTION, STERILE 10 ML VIAL IV ONE ×2 (08:26→09:54)
[2019-11-10] MEDS ORDERED: fentaNYL (PF) 50 MCG/ML 2 ML AMP IV ONE (08:26)
[2019-11-10] MEDS ORDERED: DEXAMETHASONE SOD PHOSPHATE 10 MG/ML 1 ML VIAL IV ONE (08:26)
[2019-11-10] MEDS ORDERED: LACTATED RINGERS 1,000 ML IV ONE ×2 (08:40→10:39)
[2019-11-10 08:52] LABS: Glucose,Whole Blood 132 mg/dL (75-99)
[2019-11-10] MEDS ORDERED: PROPOFOL 10 MG/ML 20 ML VIAL IV ONE (09:54)
[2019-11-10] MEDS ORDERED: ePHEDrine SULFATE/0.9% NACL/PF 50 MG/5 ML SYRINGE IV ONE (09:54)
[2019-11-10] MEDS ORDERED: HYDROmorphone (PF) 1 MG/ML ONE (09:54)
[2019-11-10] MEDS ORDERED: fentaNYL (PF) 50 MCG/ML 2 ML AMP ONE (09:54)
[2019-11-10] MEDS ORDERED: MIDAZOLAM 2 MG/2 ML VIAL ONE (09:54)
[2019-11-10] MEDS ORDERED: GLYCOPYRROLATE 0.2 MG/ML 2 ML VIAL ONE (09:54)
[2019-11-10] MEDS ORDERED: PHENYLEPHRINE-0.9% NACL SYG 1 MG/10 ML SYRINGE ONE (09:54)
[2019-11-10] MEDS ORDERED: SUCCINYLCHOLINE CHLORIDE 100 MG/5 ML SYR IV ONE (09:54)
[2019-11-10] MEDS ORDERED: LIDOCAINE 1% INJ 10MG/ML (20 ML MDV) ONE (09:54)
[2019-11-10] MEDS ORDERED: DEXAMETHASONE SOD PHOSPHATE 10 MG/ML 1 ML VIAL ONE (09:54)
[2019-11-10] MEDS ORDERED: LIDOCAINE 2%-EPI 1:100,000 20 ML VIAL SQ ONE (10:30)
[2019-11-10] MEDS ORDERED: THROMBIN (BOVINE) 5,000 UNIT VIAL TOPICAL ONE (10:36)
[2019-11-10] MEDS ORDERED: GELATIN SPONGE,ABSORB (LARGE) 1 EACH SPONGE MISCELLANE ONE (10:36)
[2019-11-10] MEDS ORDERED: ceFAZolin 1,000 MG in SODIUM CHLORIDE 0.9% 1,000 ML IRRIGATION ONE (10:37)
[2019-11-10] MEDS ORDERED: ONDANSETRON 4 MG/2 ML VIAL IVP PRN (11:32)
[2019-11-10] MEDS ORDERED: ACETAMINOPHEN TAB 325 MG TAB PO PRN (11:32)
[2019-11-10] MEDS ORDERED: HYDROmorphone 0.5 MG/0.5 ML SYRINGE IVP PRN (11:32)
[2019-11-10] MEDS ORDERED: MAG HYDROX/AL HYDROX/SIMETH 30 ML CUP PO PRN (11:32)
[2019-11-10] MEDS ORDERED: MAGNESIUM HYDROXIDE 2,400 MG/10 ML CUP PO PRN (11:32)
[2019-11-10] MEDS ORDERED: BENZOCAINE/MENTHOL LOZENG 1 EACH LOZENGE MUCOUS MEM PRN (11:32)
[2019-11-10] MEDS ORDERED: HYDROcodone/APAP 5-325MG 1 EACH TAB PO PRN (11:32)
[2019-11-10] MEDS ORDERED: HYDROmorphone 1 MG/ML 1 ML SYRINGE IVP PRN (11:32)
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
[2019-11-10] MEDS ORDERED: SODIUM CHLORIDE 0.9% 1,000 ML IV SCH (11:45)
[2019-11-10 12:25] LABS: Glucose,Whole Blood 158 mg/dL (75-99)
[2019-11-10 13:13] VITALS: BP 136/67; PULSE 79; RESP 18; TEMP 97.5
--- NOTE | 2019-11-10 14:53 | XR ---
EXAMINATION TYPE: XR cervical spine limited, FL guidance operating room DATE OF EXAM: 11/10/2019 COMPARISON: NONE HISTORY: Needle and hardware placement for cervical fixation TECHNIQUE: Fluoroscopy. FINDINGS: Fluoroscopic guidance was provided during procedure performed by Dr. Meza. A total of 3 seconds of fluoroscopic time was utilized during the procedure and 3 spot images was acquired. Please see operative report for additional details. IMPRESSION: As Above.
[2019-11-11] MEDS ORDERED: SENNOSIDES-DOCUSATE SODIUM 1 EACH TAB PO SCH ×2 (09:00)
== END 2019-11-10 16:59 | disposition home or self-care (01) ==
LOC: OR 08:25 → 5NMEDONC 11:41 → OR 16:59
PROVIDERS: ATTEND Orthopaedic Surgery Orthopaedic Surgery of the Spine
DX: M50.01 Cervical disc disorder with myelopathy, high cervical region (principal); M50.11 Cervical disc disorder with radiculopathy, high cervical region; M48.02 Spinal stenosis, cervical region; M43.12 Spondylolisthesis, cervical region; I25.2 Old myocardial infarction; I25.10 Atherosclerotic heart disease of native coronary artery without angina pectoris; I10 Essential (primary) hypertension; J44.9 Chronic obstructive pulmonary disease, unspecified; K21.9 Gastro-esophageal reflux disease without esophagitis; M10.9 Gout, unspecified; E78.5 Hyperlipidemia, unspecified; F41.9 Anxiety disorder, unspecified; H91.92 Unspecified hearing loss, left ear; M19.90 Unspecified osteoarthritis, unspecified site; E11.42 Type 2 diabetes mellitus with diabetic polyneuropathy; M86.60 Other chronic osteomyelitis, unspecified site; Z88.0 Allergy status to penicillin; Z88.2 Allergy status to sulfonamides; Z79.82 Long term (current) use of aspirin; Z79.84 Long term (current) use of oral hypoglycemic drugs; Z79.899 Other long term (current) drug therapy; Z95.1 Presence of aortocoronary bypass graft; Z98.890 Other specified postprocedural states; Z87.19 Personal history of other diseases of the digestive system; Z87.442 Personal history of urinary calculi; Z96.652 Presence of left artificial knee joint; Z87.891 Personal history of nicotine dependence
CPT/HCPCS: 86900; 86901; 86850; 72040; 22551; 22845; 20930; C1713; C1762; J0690 ×2; J2405; J2001; J1170; J2370; J0330; J2704

== ENCOUNTER → 2019-12-22 | Day surgery (SDC) | payer MEDICARE ==
[2019-12-19 12:43] VITALS: BMI 25.8
[~2019-12-22] MED LIST changes: -HYDROmorphone 0.5 MG/0.5 ML SYRINGE IVP PRN; -LACTATED RINGERS 1,000 ML IV SCH; -LIDOCAINE 1% (10MG/ML) FOR IV START INTRADERMA PRN; +LIDOCAINE 1% INJ 10MG/ML (20 ML MDV) ONE; -ONDANSETRON 4 MG/2 ML VIAL IVP ONE; -ONDANSETRON 4 MG/2 ML VIAL ONE; -ceFAZolin 1,000 MG in SODIUM CHLORIDE 0.9% IRRIGATIO 1,000 ML IRRIGATION ONE
[2019-12-22 10:08] LABS: Glucose,Whole Blood 125 mg/dL (75-99)
[2019-12-22 10:11] LABS: Basophils # (A) 0.1 k/uL (0-0.2); Basophils % (A) 1 %; Eosinophils # (A) 0.2 k/uL (0-0.7); Eosinophils % (A) 3 %; HCT 42.3 % (39.0-53.0); HGB 13.3 gm/dL (13.0-17.5); Lymphocytes # (A) 1.4 k/uL (1.0-4.8); Lymphocytes % (A) 21 %; MCH 31.2 pg (25.0-35.0); MCHC 31.5 g/dL (31.0-37.0); MCV 99.1 fL (80.0-100.0); Macrocytosis Slight; Mean Platelet Volume 7.1; Monocytes # (A) 0.4 k/uL (0-1.0); Monocytes % (A) 6 %; Neutrophils # (A) 4.5 k/uL (1.3-7.7); Neutrophils % (A) 67 %; Platelet Count 260 k/uL (150-450); RBC 4.27 m/uL (4.30-5.90); RDW 14.4 % (11.5-15.5); WBC 6.6 k/uL (3.8-10.6)
[2019-12-22 10:22] LABS: African American GFR (CKD) >90 (>60 ml/min/1.73 sqM); Anion Gap 8 mmol/L; Blood Urea Nitrogen 20 mg/dL (9-20); Carbon Dioxide 22 mmol/L (22-30); Chloride 108 mmol/L (98-107); Non-African American GFR(CKD) >90 (>60 ml/min/1.73 sqM); Sodium 138 mmol/L (137-145)
[2019-12-22 10:24] LABS: Potassium 5.5 mmol/L (3.5-5.1)
[2019-12-22 12:00] VITALS: BP 173/75; PULSE 68; RESP 18
--- NOTE | 2019-12-22 12:51 | IR ---
EXAMINATION TYPE: IR cvc insert >=5 years DATE OF EXAM: 12/22/2019 COMPARISON: NONE CLINICAL HISTORY: Flexion Needs long-term intravenous access for antibiotics. PROCEDURE: Hand hygiene obtained with soap and water and alcohol-based hand rub. After informed consent, the skin overlying the right brachial vein was localized with ultrasound and noted to be compressible and patent. An ultrasound image was obtained and submitted on the patient's chart. The overlying skin was prepped and draped and Lidocaine was used for local anesthesia. A sk in ann-marie was made with a scalpel. Access was gained to the vein under ultrasound guidance with a 21 g auge needle and a 0.018 inch wire was advanced. Access site was dilated with Peel-Away sheath and ca theter tailored to the appropriate length and advanced such that the distal tip is at the cavoatrial junction. Spot image was obtained verifying placement. Catheter was fixed to the skin and a sterile dressing was placed following hemostasis. Catheter was aspirated and flushed with saline. Patient was discharged in stable condition without complication.Maximal barrier technique is utilized. Ultra sound image is documented on the chart. Ultrasound used with sterile technique. Fluoro time and fluoroscopic images submitted to document procedure: 37 intraoperative images, 0.2 mi nutes fluoroscopy time IMPRESSION: STATUS POST ULTRASOUND AND FLUOROSCOPIC GUIDED PICC LINE PLACEMENT, READY FOR USE. THIS PROCEDURE WAS PERFORMED BY THE UNDERSIGNED.
== END ==
LOC: CATHCVL 09:43
PROVIDERS: ATTEND Radiology Diagnostic Radiology
DX: L97.812 Non-pressure chronic ulcer of other part of right lower leg with fat layer exposed (principal); M86.261 Subacute osteomyelitis, right tibia and fibula; A49.02 Methicillin resistant Staphylococcus aureus infection, unspecified site
CPT/HCPCS: 36573; 80051; 82565; 84520; 85025; C1751; C1769

== ENCOUNTER 2023-09-26 11:21 | Inpatient (IN) | payer MEDICARE ==
[2023-09-26] MEDS: NALOXONE 0.4 MG/ML 1 ML VIAL IVP STA ×2 (11:43→13:57)
[2023-09-26 11:53] LABS: Glucose,Whole Blood 193 mg/dL (70-110)
[2023-09-26 12:07] LABS: Basophils % (A) 0 %; Eosinophils # (A) 0.2 k/uL (0-0.7); Eosinophils % (A) 1 %; HCT 35.7 % (39.0-53.0); HGB 10.9 gm/dL (13.0-17.5); Hypochromasia Marked; Lymphocytes # (A) 0.4 k/uL (1.0-4.8); Lymphocytes % (A) 2 %; MCH 33.1 pg (25.0-35.0); MCHC 30.4 g/dL (31.0-37.0); MCV 108.8 fL (80.0-100.0); Macrocytosis Marked; Mean Platelet Volume 8.9; Monocytes % (A) 5 %; Neutrophils # (A) 18.2 k/uL (1.3-7.7); Neutrophils % (A) 91 %; Platelet Count 255 k/uL (150-450); RBC 3.29 m/uL (4.30-5.90); RDW 14.9 % (11.5-15.5); WBC 19.9 k/uL (3.8-10.6)
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
[2023-09-26 12:23] LABS: ALT 26 U/L (4-49); AST 38 U/L (17-59); African American GFR (CKD) 49 (>60 ml/min/1.73 sqM); Albumin 3.9 g/dL (3.5-5.0); Alcohol <10 mg/dL; Alkaline Phosphatase 105 U/L (38-126); Anion Gap 12 mmol/L; Blood Urea Nitrogen 32 mg/dL (9-20); Calcium 8.1 mg/dL (8.4-10.2); Carbon Dioxide 14 mmol/L (22-30); Chloride 113 mmol/L (98-107); Glucose 202 mg/dL (74-99); Non-African American GFR(CKD) 42 (>60 ml/min/1.73 sqM); Sodium 139 mmol/L (137-145); Total Bilirubin 0.3 mg/dL (0.2-1.3); Total Protein 7.6 g/dL (6.3-8.2)
[2023-09-26 12:25] LABS: Potassium 7.3 mmol/L (3.5-5.1)
--- NOTE | 2023-09-26 12:36 | CT ---
EXAMINATION TYPE: CT brain wo con CT DLP: 1154.4 mGycm, Automated exposure control for dose reduction was used. DATE OF EXAM: 09/26/2023 12:29 PM COMPARISON: MRI brain 02/08/2018, CT brain 02/07/2018 CLINICAL INDICATION:Male, 73 years old with history of AMS, AMS TECHNIQUE: Brain: Multiple axial CT images of the brain were obtained without IV contrast. . Coronal and sagitta l reformats reviewed. FINDINGS: Brain: Extra-axial spaces: No abnormal extra-axial fluid collections. Ventricular system: Within normal limits Cerebral parenchyma: Cerebral atrophy. No acute intraparenchymal hemorrhage or mass effect. The loving -white junction is well differentiated. Scattered hypoattenuating areas are seen within the periventr icular white matter. Cerebellum: Unremarkable. Mass effect: No evidence of midline shift. Intracranial vasculature: Atherosclerotic calcifications of the intracranial vessels. Soft tissues: Normal. Calvarium/osseous structures: No depressed skull fracture. Paranasal sinuses and mastoid air cells: Clear Visualized orbits: Orbital contents are intact. IMPRESSION: 1. No acute intracranial process. 2. Nonspecific white matter changes, likely secondary to chronic small vessel ischemic disease.
[2023-09-26 12:42] LABS: Partial Thromboplastin Time 27.2 sec (22.0-30.0); Prothrombin Time 10.8 sec (10.0-12.5)
--- NOTE | 2023-09-26 12:47 | XR ---
EXAMINATION TYPE: XR chest 1V portable DATE OF EXAM: 09/26/2023 12:40 PM CLINICAL INDICATION:Male, 73 years old with history of altered mental status; COMPARISON: None TECHNIQUE: XR chest 1V portable Frontal view of the chest. FINDINGS: Lungs/Pleura: There is no evidence of pleural effusion, focal consolidation, or pneumothorax. Pulmonary vascularity: Unremarkable. Heart/mediastinum: Cardiomediastinal silhouette is enlarged and stable. Musculoskeletal: No acute osseous pathology. Midline sternotomy wires are noted. Other findings: None IMPRESSION: Cardiomegaly and mild pulmonary vascular congestion. Correlate with BNP for congestive heart failure.
[2023-09-26 12:55] LABS: ABG Base Excess -10.9 mmol/L; ABG HCO3 17 mmol/L (21-25); ABG PCO2 45 mmHg (35-45); ABG TCO2 18 mmol/L (19-24); Allen Test Performed? Yes
[2023-09-26 13:02] LABS: Acetaminophen 34.4 ug/mL; Salicylate <1.0 mg/dL
[2023-09-26 13:03] LABS: ABG PH 7.19 (7.35-7.45)
[2023-09-26 13:04] LABS: ABG PO2 49 mmHg (83-108)
[2023-09-26] MEDS: DEXTROSE 50% SYRINGE 50 ML IVP ONE ×2 (13:04→18:02)
[2023-09-26] MEDS: INSULIN REGULAR 100 UNIT/ML VIAL (IV) IV ONE ×3 (13:08→23:34)
[2023-09-26] MEDS: SODIUM BICARB 8.4% 50 ML SYR (1 MEQ/ML) IV ONE ×2 (13:10→18:02)
[2023-09-26] MEDS: CALCIUM GLUCONATE IN NACL 1 GM in SALINE 1 100ML.BAG IVPB ONE ×2 (13:12→23:34)
[2023-09-26 13:21] LABS: Glucose,Whole Blood 281 mg/dL (70-110)
[2023-09-26 13:27] LABS: African American GFR (CKD) 52 (>60 ml/min/1.73 sqM); Anion Gap 9 mmol/L; Blood Urea Nitrogen 35 mg/dL (9-20); Calcium 8.3 mg/dL (8.4-10.2); Carbon Dioxide 16 mmol/L (22-30); Chloride 114 mmol/L (98-107); Glucose 168 mg/dL (74-99); Non-African American GFR(CKD) 45 (>60 ml/min/1.73 sqM); Sodium 139 mmol/L (137-145)
[2023-09-26 13:30] LABS: Potassium 7.2 mmol/L (3.5-5.1)
[2023-09-26 14:07] LABS: Glucose,Whole Blood 179 mg/dL (70-110)
[2023-09-26] MEDS ORDERED: NALOXONE 0.4 MG/ML 1 ML VIAL IV PRN (14:09)
[2023-09-26] MEDS: FUROSEMIDE 10 MG/ML 4 ML VIAL IV STA (14:22)
[2023-09-26] MEDS ORDERED: DEXTROSE 50% SYRINGE 50 ML IVP PRN ×2 (14:42)
[2023-09-26] MEDS: SODIUM CHLORIDE 0.9% 1,000 ML IV SCH (14:51)
[2023-09-26] MEDS: ALBUTEROL NEB (CONC) 2.5 MG/0.5 ML INHALATION ONE (15:30)
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
[2023-09-26 16:08] LABS: Glucose,Whole Blood 131 mg/dL (70-110)
[2023-09-26] MEDS: INSULIN ASPART (NovoLOG) 100 UNIT/ML VIAL SQ SCH (17:40)
[2023-09-26] MEDS: SODIUM ZIRCONIUM CYCLOSILICATE 10 GM PACKET PO ONE (18:02)
[2023-09-26] MEDS: CEFEPIME 2 GM in SODIUM CHLORIDE 0.9% 100 ML IVPB SCH (18:06)
[2023-09-26 18:14] LABS: Appearance,Urine Clear (Clear); Bilirubin,Urine Negative (Negative); Blood,Urine Negative (Negative); Color,Urine Yellow; Glucose,Urine (UA) Negative (Negative); Ketones,Urine Negative (Negative); Leukocyte Esterase,Urine Negative (Negative); Nitrite,Urine Negative (Negative); Protein,Urine Trace (Negative); Specific Gravity,Urine 1.025 (1.001-1.035); Urobilinogen,Urine <2.0 mg/dL (<2.0)
[2023-09-26 18:33] LABS: Amphetamine Screen,Urine Not Detected (NotDetected); Barbiturate Screen,Urine Not Detected (NotDetected); Benzodiazepines Screen,Urine Not Detected (NotDetected); Cocaine Screen,Urine Not Detected (NotDetected); Methadone Screen, Urine Not Detected (NotDetected); Opiate Screen,Urine Detected (NotDetected); Oxycodone Screen, Urine Detected (NotDetected); Phencyclidine Screen,Urine Not Detected (NotDetected); Tricyclic Antidepressant,Urine Not Detected (NotDetected); Urn Cannabinoid Scrn Not Detected (NotDetected)
[2023-09-26 20:03] LABS: Glucose,Whole Blood 153 mg/dL (70-110)
[2023-09-26] MEDS: COLLAGENASE 250 UNIT/GM OINTMENT 30 GM TUBE TOPICAL SCH (20:08)
--- NOTE | 2023-09-26 23:24 | XR ---
EXAMINATION TYPE: XR tibia fibula RT DATE OF EXAM: 09/26/2023 8:42 PM CLINICAL INDICATION:Male, 73 years old with history of right anterior leg wound , hardware; [facility] COMPARISON: Radiographs 08/07/2019 TECHNIQUE: XR tibia fibula RT; tibia/fibula was examined in AP and lateral projections. FINDINGS: There is redemonstration of surgical changes including screws and a plate/screw fixation device in th e mid to distal tibial shaft. The hardware appears intact and unchanged from prior with no surroundin g lucency evident. Deformities of the mid to distal tibial and fibular shafts consistent with hypertrophic chronic fract ure deformities, appear similar to the prior study. There is no evidence of acute superimposed fractu re or osseous destructive process. There does appear to be deep ulceration along the medial aspect of the leg at the level of the remote tibial fracture; the depths of this could reach the underlying ita ne (i.e., bone is exposed within the wound), and if so technically this may be considered osteomyelit is. Chronic degenerative changes of the ankle and knee are again noted. Mild soft tissue prominence about the ankle. There are moderate arterial vascular calcifications also noted. IMPRESSION: 1. Status post ORIF with remote healed hypertrophic fracture deformities of the mid to distal tibia and fibula. 2. No definite radiographic evidence to suggest osseous destructive changes from osteomyelitis, ravi tong deep ulceration along the medial aspect of the leg may result in exposed bone, and if so technica lly this may be considered osteomyelitis.
[2023-09-26] MEDS: DEXTROSE 50% SYRINGE 50 ML IVP STA (23:34)
[2023-09-26] MEDS: SODIUM BICARB 8.4% 50 ML SYR (1 MEQ/ML) IV STA ×2 (23:37→23:49)
[2023-09-27] MEDS: ALBUTEROL NEBULIZED 2.5 MG/3 ML INHALATION SCH (00:43)
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
[2023-09-27 05:10] LABS: African American GFR (CKD) 64 (>60 ml/min/1.73 sqM); Anion Gap 10 mmol/L; Blood Urea Nitrogen 36 mg/dL (9-20); Calcium 8.5 mg/dL (8.4-10.2); Carbon Dioxide 18 mmol/L (22-30); Chloride 113 mmol/L (98-107); Glucose 124 mg/dL (74-99); Magnesium 1.4 mg/dL (1.6-2.3); Non-African American GFR(CKD) 56 (>60 ml/min/1.73 sqM); Potassium 5.5 mmol/L (3.5-5.1); Sodium 141 mmol/L (137-145)
[2023-09-27 05:31] LABS: HCT 35.7 % (39.0-53.0); HGB 10.5 gm/dL (13.0-17.5); Hypochromasia Marked; MCH 31.8 pg (25.0-35.0); MCHC 29.4 g/dL (31.0-37.0); MCV 108.1 fL (80.0-100.0); Macrocytosis Marked; Mean Platelet Volume 9.3; Platelet Count 228 k/uL (150-450); RDW 15.2 % (11.5-15.5); WBC 19.2 k/uL (3.8-10.6)
[2023-09-27 06:28] LABS: Glucose,Whole Blood 134 mg/dL (70-110)
[2023-09-27] MEDS: METOPROLOL TARTRATE 50 MG TAB PO SCH (08:51)
[2023-09-27] MEDS: amLODIPine 10 MG TAB PO SCH (08:51)
[2023-09-27] MEDS: TAMSULOSIN 0.4 MG CAP.ER.24H PO SCH (08:51)
[2023-09-27] MEDS: ACETAMINOPHEN TAB 500 MG TAB PO PRN (08:52)
[2023-09-27] MEDS: allopurinoL 300 MG TAB PO SCH (08:52)
[2023-09-27] MEDS ORDERED: ATORVASTATIN 40 MG TAB PO SCH (09:00)
[2023-09-27] MEDS ORDERED: Magnesium Replacement Protocol 1 EACH MISC MISCELLANE PRN (10:13)
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
[2023-09-27] MEDS: MAGNESIUM SULFATE-D5W PMX 1 GM in DEXTROSE/WATER 1 100ML.BAG IVPB SCH (11:04)
[2023-09-27 11:17] LABS: Glucose,Whole Blood 149 mg/dL (70-110)
[2023-09-27 11:26] LABS: Erythrocyte Sedimentation Rate 85 mm/Hr (0-20)
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
[2023-09-27 16:16] LABS: Glucose,Whole Blood 161 mg/dL (70-110)
--- NOTE | 2023-09-27 16:23 | P.PN ---
Subjective Progress Note Date: 09/27/23 Principal diagnosis: Reason for follow-up is right leg wound and osteomyelitis The patient is a 73-year-old male with a past medical history significant for diabetes mellitus hypertension hyperlipidemia coronary disease prostate disorder, patient did have a history of previous injury to the right leg requiring operative repair with hardware and has been dealing with a nonhealing wound to the right anterior leg for few years presented to hospital mental status changes possible overdose on fentanyl patch with a worsening wound to the right leg prompting this consultation. On today's evaluation that is 09/27/2023, the patient did have a low-grade fever 100.4 F this morning patient is breathing comfortably on 2 L current oxygen patient denies having any chest pain shortness with cough or any worsening pain to the right leg wound. Patient white count is 19.2, creat is 1.27 ESR is 85 cultures currently pending Objective - Vital Signs Vital signs: Vital Signs Temp 100.5 F H 09/27/23 10:00 Pulse 114 H 09/27/23 10:00 Resp 12 09/27/23 10:00 BP 133/67 09/27/23 10:00 Pulse Ox 94 L 09/27/23 10:00 FiO2 Intake & Output 09/26/23 09/27/23 09/27/23 18:59 06:59 18:59 Intake Total 150 1600 200 Output Total 575 555 310 Balance -425 1045 -110 Weight 77.111 kg 82.6 kg Intake: IV 150 600 200 Sodium Chloride 0.9% 1, 150 600 200 000 ml @ 50 mls/hr IV . Q20H [facility] Rx#:[id number] Oral 1000 Output: Urine 575 555 310 Other: Voiding Method Indwelling Catheter Indwelling Catheter Indwelling Catheter - Exam GENERAL DESCRIPTION: An elderly male lying in bed in no distress RESPIRATORY SYSTEM: Unlabored breathing , decreased breath sounds at bases HEART: S1 S2 regular rate and rhythm , ABDOMEN: Soft , no tenderness EXTREMITIES: Right leg wound is currently dressed - Labs CBC & Chem 7: 09/27/23 04:04 09/27/23 04:04 Labs: Abnormal Lab Results - Last 24 Hours (Table) 09/26/23 09/26/23 09/26/23 Range/Units 11:47 11:47 11:47 WBC 19.9 H (3.8-10.6) k/uL RBC 3.29 L (4.30-5.90) m/uL Hgb 10.9 L (13.0-17.5) gm/dL Hct 35.7 L (39.0-53.0) % MCV 108.8 H (80.0-100.0) fL MCHC 30.4 L (31.0-37.0) g/dL Neutrophils # 18.2 H (1.3-7.7) k/uL Lymphocytes # 0.4 L (1.0-4.8) k/uL Macrocytosis Marked A ABG pH (7.35-7.45) ABG pO2 (83-108) mmHg ABG HCO3 (21-25) mmol/L ABG Total CO2 (19-24) mmol/L ABG O2 Saturation (94-97) % Potassium 7.3 H* (3.5-5.1) mmol/L Chloride 113 H (98-107) mmol/L Carbon Dioxide 14 L (22-30) mmol/L BUN 32 H (9-20) mg/dL Creatinine 1.61 H (0.66-1.25) mg/dL Glucose 202 H (74-99) mg/dL POC Glucose (mg/dL) (70-110) mg/dL Hemoglobin A1c (<=6.0) % Calcium 8.1 L (8.4-10.2) mg/dL Magnesium (1.6-2.3) mg/dL Troponin I 0.259 H* (0.000-0.034) ng/mL C-Reactive Protein (<1.0) mg/dL Urine Protein (Negative) Urine Opiates Screen (NotDetected) Ur Oxycodone Screen (NotDetected) 09/26/23 09/26/23 09/26/23 Range/Units 11:51 12:46 12:50 WBC (3.8-10.6) k/uL RBC (4.30-5.90) m/uL Hgb (13.0-17.5) gm/dL Hct (39.0-53.0) % MCV (80.0-100.0) fL MCHC (31.0-37.0) g/dL Neutrophils # (1.3-7.7) k/uL Lymphocytes # (1.0-4.8) k/uL Macrocytosis ABG pH 7.19 L* (7.35-7.45) ABG pO2 49 L* (83-108) mmHg ABG HCO3 17 L (21-25) mmol/L ABG Total CO2 18 L (19-24) mmol/L ABG O2 Saturation 86.0 L (94-97) % Potassium 7.2 H* (3.5-5.1) mmol/L Chloride 114 H (98-107) mmol/L Carbon Dioxide 16 L (22-30) mmol/L BUN 35 H (9-20) mg/dL Creatinine 1.52 H (0.66-1.25) mg/dL Glucose 168 H (74-99) mg/dL POC Glucose (mg/dL) 193 H (70-110) mg/dL Hemoglobin A1c (<=6.0) % Calcium 8.3 L (8.4-10.2) mg/dL Magnesium (1.6-2.3) mg/dL Troponin I (0.000-0.034) ng/mL C-Reactive Protein (<1.0) mg/dL Urine Protein (Negative) Urine Opiates Screen (NotDetected) Ur Oxycodone Screen (NotDetected) 09/26/23 09/26/23 09/26/23 Range/Units 13:19 14:04 14:05 WBC (3.8-10.6) k/uL RBC (4.30-5.90) m/uL Hgb (13.0-17.5) gm/dL Hct (39.0-53.0) % MCV (80.0-100.0) fL MCHC (31.0-37.0) g/dL Neutrophils # (1.3-7.7) k/uL Lymphocytes # (1.0-4.8) k/uL Macrocytosis ABG pH (7.35-7.45) ABG pO2 (83-108) mmHg ABG HCO3 (21-25) mmol/L ABG Total CO2 (19-24) mmol/L ABG O2 Saturation (94-97) % Potassium 6.9 H* (3.5-5.1) mmol/L Chloride (98-107) mmol/L Carbon Dioxide (22-30) mmol/L BUN (9-20) mg/dL Creatinine (0.66-1.25) mg/dL Glucose (74-99) mg/dL POC Glucose (mg/dL) 281 H 179 H (70-110) mg/dL Hemoglobin A1c (<=6.0) % Calcium (8.4-10.2) mg/dL Magnesium (1.6-2.3) mg/dL Troponin I (0.000-0.034) ng/mL C-Reactive Protein (<1.0) mg/dL Urine Protein (Negative) Urine Opiates Screen (NotDetected) Ur Oxycodone Screen (NotDetected) 09/26/23 09/26/23 09/26/23 Range/Units 16:06 17:45 20:03 WBC (3.8-10.6) k/uL RBC (4.30-5.90) m/uL Hgb (13.0-17.5) gm/dL Hct (39.0-53.0) % MCV (80.0-100.0) fL MCHC (31.0-37.0) g/dL Neutrophils # (1.3-7.7) k/uL Lymphocytes # (1.0-4.8) k/uL Macrocytosis ABG pH (7.35-7.45) ABG pO2 (83-108) mmHg ABG HCO3 (21-25) mmol/L ABG Total CO2 (19-24) mmol/L ABG O2 Saturation (94-97) % Potassium (3.5-5.1) mmol/L Chloride (98-107) mmol/L Carbon Dioxide (22-30) mmol/L BUN (9-20) mg/dL Creatinine (0.66-1.25) mg/dL Glucose (74-99) mg/dL POC Glucose (mg/dL) 131 H 153 H (70-110) mg/dL Hemoglobin A1c (<=6.0) % Calcium (8.4-10.2) mg/dL Magnesium (1.6-2.3) mg/dL Troponin I (0.000-0.034) ng/mL C-Reactive Protein (<1.0) mg/dL Urine Protein Trace H (Negative) Urine Opiates Screen Detected H (NotDetected) Ur Oxycodone Screen Detected H (NotDetected) 09/26/23 09/27/23 09/27/23 Range/Units 21:35 04:04 04:04 WBC 19.2 H (3.8-10.6) k/uL RBC 3.30 L (4.30-5.90) m/uL Hgb 10.5 L (13.0-17.5) gm/dL Hct 35.7 L (39.0-53.0) % MCV 108.1 H (80.0-100.0) fL MCHC 29.4 L (31.0-37.0) g/dL Neutrophils # (1.3-7.7) k/uL Lymphocytes # (1.0-4.8) k/uL Macrocytosis Marked A ABG pH (7.35-7.45) ABG pO2 (83-108) mmHg ABG HCO3 (21-25) mmol/L ABG Total CO2 (19-24) mmol/L ABG O2 Saturation (94-97) % Potassium 6.2 H* (3.5-5.1) mmol/L Chloride (98-107) mmol/L Carbon Dioxide (22-30) mmol/L BUN (9-20) mg/dL Creatinine (0.66-1.25) mg/dL Glucose (74-99) mg/dL POC Glucose (mg/dL) (70-110) mg/dL Hemoglobin A1c 6.4 H (<=6.0) % Calcium (8.4-10.2) mg/dL Magnesium (1.6-2.3) mg/dL Troponin I (0.000-0.034) ng/mL C-Reactive Protein (<1.0) mg/dL Urine Protein (Negative) Urine Opiates Screen (NotDetected) Ur Oxycodone Screen (NotDetected) 09/27/23 09/27/23 09/27/23 Range/Units 04:04 04:04 06:27 WBC (3.8-10.6) k/uL RBC (4.30-5.90) m/uL Hgb (13.0-17.5) gm/dL Hct (39.0-53.0) % MCV (80.0-100.0) fL MCHC (31.0-37.0) g/dL Neutrophils # (1.3-7.7) k/uL Lymphocytes # (1.0-4.8) k/uL Macrocytosis ABG pH (7.35-7.45) ABG pO2 (83-108) mmHg ABG HCO3 (21-25) mmol/L ABG Total CO2 (19-24) mmol/L ABG O2 Saturation (94-97) % Potassium 5.5 H (3.5-5.1) mmol/L Chloride 113 H (98-107) mmol/L Carbon Dioxide 18 L (22-30) mmol/L BUN 36 H (9-20) mg/dL Creatinine 1.27 H (0.66-1.25) mg/dL Glucose 124 H (74-99) mg/dL POC Glucose (mg/dL) 134 H (70-110) mg/dL Hemoglobin A1c (<=6.0) % Calcium (8.4-10.2) mg/dL Magnesium 1.4 L (1.6-2.3) mg/dL Troponin I (0.000-0.034) ng/mL C-Reactive Protein 5.1 H (<1.0) mg/dL Urine Protein (Negative) Urine Opiates Screen (NotDetected) Ur Oxycodone Screen (NotDetected) Assessment and Plan (1) Allergy to multiple antibiotics Current Visit: Yes Status: Acute Code(s): Z88.1 - ALLERGY STATUS TO OTHER ANTIBIOTIC AGENTS SNOMED Code(s): 414861498 (2) Leukocytosis Current Visit: Yes Status: Acute Code(s): D72.829 - ELEVATED WHITE BLOOD CELL COUNT, UNSPECIFIED SNOMED Code(s): 989529955 (3) Leg wound, right Current Visit: Yes Status: Acute Code(s): S81.801A - UNSPECIFIED OPEN WOUND, RIGHT LOWER LEG, INITIAL ENCOUNTER SNOMED Code(s): 74460806198049307 Plan: 1patient presented to hospital with mental status changes possibly fentanyl overdose patches has been removed patient also have chronic nonhealing wound to the right leg which has been there for many years with exposed hardware and likely concerning for osteomyelitis patient wound has increased in size compared to 2-year ago when I saw the patient last with the hardware exposed and highly suspicious for possible osteomyelitis will need to cover for resistant gram- positive as well as gram-negative pathogen. 2local wound culture has been obtained to guide further antibiotic therapy blood culture pending patient did have elevated sed rate of 85 3patient with renal insufficiency high risk of nephrotoxicity. 4patient with multiple antibiotic ALLERGIES that would limit the number of antibiotic safe to use. 5patient benefit from removal of the infected hardware in the wound bed in order to completely heal this infection for now continue with cefepime and daptomycin Dictation was produced using [employer] dictation software. please excuse any grammatical, word or spelling errors. Time with Patient: Less than 30
[2023-09-27 17:58] LABS: Glucose,Whole Blood 156 mg/dL (70-110)
[2023-09-27] MEDS: FUROSEMIDE 10 MG/ML 4 ML VIAL IV STA ×2 (17:58→21:56)
--- NOTE | 2023-09-27 19:57 | XR ---
EXAMINATION TYPE: XR chest 1V portable DATE OF EXAM: 09/27/2023 7:48 PM CLINICAL INDICATION:Male, 73 years old with history of CHF, bloody sputum; COMPARISON: Chest radiographs from 09/26/2023 TECHNIQUE: XR chest 1V portable Frontal view of the chest. FINDINGS: Lungs/Pleura: There is no evidence of pleural effusion, focal consolidation, or pneumothorax. Pulmonary vascularity: Pulmonary vascular congestion. Heart/mediastinum: Cardiomediastinal silhouette is enlarged and stable. Musculoskeletal: No acute osseous pathology. IMPRESSION: Interval development of multifocal airspace opacities correlate for pulmonary vascular congestion tong chris pneumonia.
[2023-09-27 21:03] LABS: Glucose,Whole Blood 177 mg/dL (70-110)
[2023-09-28] MEDS: HEPARIN SODIUM,PORCINE 5,000 UNIT/ML 1 ML VIAL SQ SCH (00:56)
[2023-09-28 05:37] LABS: African American GFR (CKD) >90 (>60 ml/min/1.73 sqM); Anion Gap 5 mmol/L; Blood Urea Nitrogen 45 mg/dL (9-20); Calcium 8.2 mg/dL (8.4-10.2); Carbon Dioxide 21 mmol/L (22-30); Chloride 110 mmol/L (98-107); Glucose 139 mg/dL (74-99); Magnesium 1.9 mg/dL (1.6-2.3); Non-African American GFR(CKD) 85 (>60 ml/min/1.73 sqM); Potassium 5.2 mmol/L (3.5-5.1); Sodium 136 mmol/L (137-145)
[2023-09-28 05:43] LABS: HCT 35.6 % (39.0-53.0); Hypochromasia Moderate; MCH 33.2 pg (25.0-35.0); MCV 107.1 fL (80.0-100.0); Macrocytosis Marked; Mean Platelet Volume 8.5; Platelet Count 203 k/uL (150-450); RBC 3.32 m/uL (4.30-5.90); RDW 14.7 % (11.5-15.5); WBC 16.5 k/uL (3.8-10.6)
[2023-09-28] MEDS: propofoL 100 ML IV ONE (06:48)
[2023-09-28 06:54] LABS: Glucose,Whole Blood 177 mg/dL (70-110)
[2023-09-28] MEDS: SODIUM CHLORIDE 0.9% 1,000 ML BAG IV STA ×2 (07:18→17:37)
--- NOTE | 2023-09-28 07:45 | XR ---
EXAMINATION TYPE: XR chest 1V portable DATE OF EXAM: 09/28/2023 COMPARISON: 09/28/2023 INDICATION: Intubation difficulty breathing TECHNIQUE: Single frontal view of the chest is obtained. FINDINGS: The heart size is enlarged. The pulmonary vasculature is normal. Patchy bilateral lung infiltrates are present. Endotracheal tube tip is 5.4 cm above the anthony. Nasogastric tube tip is in the left upper quadrant of the abdomen. IMPRESSION: 1. Patchy bilateral lung infiltrates may have slight improvement from comparison. Correlate for pneum onia.
[2023-09-28] MEDS: CISATRACURIUM 2 MG/ML 5 ML VIAL IV ONE (08:15)
[2023-09-28] MEDS: NOREPINEPHRINE 4 MG in SODIUM CHLORIDE 0.9% 250 ML IV SCH (08:15)
--- NOTE | 2023-09-28 08:37 | XR ---
EXAMINATION TYPE: XR chest 1V portable DATE OF EXAM: 09/28/2023 5:08 AM CLINICAL INDICATION:Male, 73 years old with history of CHF follow up; [facility] COMPARISON: Chest radiographs from TECHNIQUE: XR chest 1V portable Frontal view of the chest. FINDINGS: Lungs/Pleura: Worsening consolidation airspace opacities most pronounced in the right midlung may be low lung lines in today's exam. No pneumothorax. Pulmonary vascularity: Pulmonary vascular congestion. Heart/mediastinum: Cardiomediastinal silhouette is enlarged and stable. Musculoskeletal: No acute osseous pathology. Midline sternotomy wires are noted. IMPRESSION: Worsening consolidation changes throughout the lungs possibly due to low lung volumes.
--- NOTE | 2023-09-28 09:35 | XR ---
EXAMINATION TYPE: XR chest 1V portable DATE OF EXAM: 09/28/2023 9:26 AM CLINICAL INDICATION:Male, 73 years old with history of bronch and line insertion; [facility] COMPARISON: Chest radiographs from 09/28/2023 TECHNIQUE: XR chest 1V portable Frontal view of the chest. FINDINGS: Lungs/Pleura: There is no evidence of pleural effusion, focal consolidation, or pneumothorax. Pulmonary vascularity: Unremarkable. Heart/mediastinum: Cardiomediastinal silhouette is unremarkable. Musculoskeletal: No acute osseous pathology. Other findings: None Lines/Tubes: Endotracheal tube with distal tip 6.9 cm above the anthony. Nasogastric tube with its distal tip and side-port projecting under the diaphragm. Right internal jugular central venous catheter with distal tip at the cavoatrial junction. IMPRESSION: 1. Right central venous catheter in place without evidence of pneumothorax. 2. Endotracheal tube in high position consider advancement of 3 cm for optimal placement. 3. Multifocal airspace opacities. 4. Cardiomegaly
[2023-09-28] MEDS: CHLORHEXIDINE GLUCONATE 15 ML CUP MUCOUS MEM SCH (09:54)
[2023-09-28] MEDS: SODIUM CHLORIDE 0.9% 500 ML BAG IV STA (11:21)
[2023-09-28 11:28] LABS: ABG Base Excess -4.8 mmol/L; ABG HCO3 22 mmol/L (21-25); ABG Oxygen Saturation 98.1 % (94-97); ABG PCO2 49 mmHg (35-45); ABG PH 7.27 (7.35-7.45); ABG PO2 100 mmHg (83-108); ABG TCO2 24 mmol/L (19-24); Allen Test Performed? Yes
--- NOTE | 2023-09-28 12:18 | OP ---
OPERATIVE REPORT DATE OF SERVICE : PROCEDURE PERFORMED: Placement of a right radial arterial line. PREOPERATIVE DIAGNOSES: Acute hypoxic respiratory failure, hypotension, hemoptysis. POSTOPERATIVE DIAGNOSES: Acute hypoxic respiratory failure, hypotension, hemoptysis. ANESTHESIA USED: None deployed. DESCRIPTION OF PROCEDURE: The right wrist was prepared in a sterile fashion. Drapes were applied. The right radial artery palpated, cannulated easily. Guidewire was placed. A Cook's catheter inserted over the guidewire, and the guidewire was removed. Good blood flow, good waveform, no complications. Line was secured using 3.0 silk sutures. MMODL / IJN: [id number] /
--- NOTE | 2023-09-28 12:40 | OP ---
OPERATIVE REPORT DATE OF SERVICE : PROCEDURES PERFORMED: Bronchoscopy and random bronchoalveolar lavage. PREOPERATIVE DIAGNOSIS: Hemoptysis. POSTOPERATIVE DIAGNOSIS: No active hemoptysis noted during bronchoscopy. ANESTHESIA USED: The patient was already intubated on mechanical ventilation on propofol, and he was given 10 mg of Nimbex prior to the procedure. DESCRIPTION OF PROCEDURE: The patient was placed in the supine position, the endotracheal tube was connected to mechanical ventilation, and an adapter was applied. We monitored his cardiac rhythm continuously, blood pressure was also monitored continuously, and O2 saturation was continuously monitored. After adequate sedation, the bronchoscope was advanced through the endotracheal tube and went down to the distal trachea. There was some blood, which was all noted in the endotracheal tube and in the distal trachea. Thorough examination was done of the right upper lobe, right middle lobe, right lower lobe, left upper lobe, lingula, and left lower lobe. There was no evidence of any active bleeding, there was some blood/old blood noted on the mucosa throughout the airways, but no clear-cut evidence of active bleeding during the bronchoscopy exam. Different areas of the lungs were lavaged, and again no active bleeding was noted. The fluid was sent for different diagnostic studies. The procedure was well tolerated, and no complications. MMODL / IJN: [id number] /
--- NOTE | 2023-09-28 12:46 | OP ---
OPERATIVE REPORT DATE OF SERVICE : PROCEDURE PERFORMED: Placement of a right IJ triple-lumen catheter. PREOPERATIVE DIAGNOSES: Acute hypoxic respiratory failure and hemoptysis. POSTOPERATIVE DIAGNOSES: Acute hypoxic respiratory failure and hemoptysis. ANESTHESIA USED: 2 mL of 1% lidocaine. DESCRIPTION OF PROCEDURE: The patient was placed in a Trendelenburg position, the area of the right cervical region was prepared in a sterile fashion. Drapes were applied. Using the posterior approach, the area behind the posterior belly of the sternocleidomastoid was locally anesthetized. Then, the right internal jugular vein was easily cannulated, and a guidewire was placed. The area around the guidewire was dilated. The triple-lumen catheter was inserted over the guidewire, and the guidewire was removed. Good blood flow noted in the 3 different ports of the triple-lumen catheter, no complications, line was secured using 3.0 silk suture. Chest x-ray postoperatively showed adequate placement and no complications. MMUMERL / AYLEENN: [id number] /
[2023-09-28 12:57] LABS: Glucose,Whole Blood 159 mg/dL (70-110)
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
--- NOTE | 2023-09-28 13:03 | P.PN ---
Subjective Progress Note Date: 09/28/23 Principal diagnosis: Reason for follow-up is right leg wound and osteomyelitis The patient is a 73-year-old male with a past medical history significant for diabetes mellitus hypertension hyperlipidemia coronary disease prostate disorder, patient did have a history of previous injury to the right leg requiring operative repair with hardware and has been dealing with a nonhealing wound to the right anterior leg for few years presented to hospital mental status changes possible overdose on fentanyl patch with a worsening wound to the right leg prompting this consultation. On today's evaluation that is 09/28/2023, Patient did have resolution of his fever is afebrile today patient apparently did have worsening of his respiratory status requiring intubation currently on the vent FiO2 is down to 50% no significant purulent secretions through the ET or any changes reported by the nursing staff. Patient white count is down to 16.5 creatinine 0.89 local culture growing presumptive MRSA Objective - Vital Signs Vital signs: Vital Signs Temp 97.7 F 09/28/23 04:00 Pulse 82 09/28/23 08:33 Resp 20 09/28/23 08:33 BP 113/57 09/28/23 07:00 Pulse Ox 98 09/28/23 07:00 FiO2 70 09/28/23 09:43 Intake & Output 09/27/23 09/28/23 09/28/23 18:59 06:59 18:59 Intake Total 650 113.097 180.126 Output Total 580 1280 70 Balance 70 -1166.903 110.126 Weight 82.6 kg Intake: IV 550 110 110 0.9 KVO 110 10 Cefepime 2 gm In Sodium 100 Chloride 0.9% 100 ml @ 25 mls/hr IVPB Q12H [facility] Rx# :[id number] Sodium Chloride 0.9% 1, 550 000 ml @ 10 mls/hr IV . Q24H [facility] Rx#:[id number] Intake, IV Titration 100 3.097 70.126 Amount Magnesium Sulfate-D5w Pmx 100 1 gm In Dextrose/Water 1 100ml.bag @ 100 mls/hr IVPB Q1H [facility] Rx#: [id number] Norepinephrine 4 mg In 11.067 Sodium Chloride 0.9% 250 ml @ 0.03 MCG/KG/MIN 9. 441 mls/hr IV .Q24H [facility] Rx#:[id number] propofoL 1,000 mg In 3.097 59.059 Empty Bag 1 bag @ 15 MCG/ KG/MIN 7.434 mls/hr IV . [id number] [facility] TO [facility] Rx#:[id number] Output: Urine 580 1280 70 Other: Voiding Method Indwelling Catheter Indwelling Catheter - Exam GENERAL DESCRIPTION: An elderly male intubated on the vent RESPIRATORY SYSTEM: Unlabored breathing , decreased breath sounds at bases HEART: S1 S2 regular rate and rhythm , ABDOMEN: Soft , no tenderness EXTREMITIES: Right leg wound is currently dressed - Labs CBC & Chem 7: 09/28/23 04:55 09/28/23 04:55 Labs: Abnormal Lab Results - Last 24 Hours (Table) 09/27/23 09/27/23 09/27/23 Range/Units 04:04 11:15 16:14 WBC (3.8-10.6) k/uL RBC (4.30-5.90) m/uL Hgb (13.0-17.5) gm/dL Hct (39.0-53.0) % MCV (80.0-100.0) fL Macrocytosis ESR 85 H (0-20) mm/Hr Sodium (137-145) mmol/L Potassium (3.5-5.1) mmol/L Chloride (98-107) mmol/L Carbon Dioxide (22-30) mmol/L BUN (9-20) mg/dL Glucose (74-99) mg/dL POC Glucose (mg/dL) 149 H 161 H (70-110) mg/dL Calcium (8.4-10.2) mg/dL 09/27/23 09/27/23 09/28/23 Range/Units 17:57 21:02 04:55 WBC 16.5 H (3.8-10.6) k/uL RBC 3.32 L (4.30-5.90) m/uL Hgb 11.0 L (13.0-17.5) gm/dL Hct 35.6 L (39.0-53.0) % MCV 107.1 H (80.0-100.0) fL Macrocytosis Marked A ESR (0-20) mm/Hr Sodium (137-145) mmol/L Potassium (3.5-5.1) mmol/L Chloride (98-107) mmol/L Carbon Dioxide (22-30) mmol/L BUN (9-20) mg/dL Glucose (74-99) mg/dL POC Glucose (mg/dL) 156 H 177 H (70-110) mg/dL Calcium (8.4-10.2) mg/dL 09/28/23 09/28/23 Range/Units 04:55 06:52 WBC (3.8-10.6) k/uL RBC (4.30-5.90) m/uL Hgb (13.0-17.5) gm/dL Hct (39.0-53.0) % MCV (80.0-100.0) fL Macrocytosis ESR (0-20) mm/Hr Sodium 136 L (137-145) mmol/L Potassium 5.2 H (3.5-5.1) mmol/L Chloride 110 H (98-107) mmol/L Carbon Dioxide 21 L (22-30) mmol/L BUN 45 H (9-20) mg/dL Glucose 139 H (74-99) mg/dL POC Glucose (mg/dL) 177 H (70-110) mg/dL Calcium 8.2 L (8.4-10.2) mg/dL Microbiology - Last 24 Hours (Table) 09/26/23 17:45 Gram Stain - Preliminary Leg - Right Wound Culture - Preliminary Presumptive MRSA 09/26/23 11:30 Blood Culture - Preliminary Blood 09/26/23 11:47 Blood Culture - Preliminary Blood Assessment and Plan (1) Allergy to multiple antibiotics Current Visit: Yes Status: Acute Code(s): Z88.1 - ALLERGY STATUS TO OTHER ANTIBIOTIC AGENTS SNOMED Code(s): 824970248 (2) Leukocytosis Current Visit: Yes Status: Acute Code(s): D72.829 - ELEVATED WHITE BLOOD CELL COUNT, UNSPECIFIED SNOMED Code(s): 329429190 (3) Leg wound, right Current Visit: Yes Status: Acute Code(s): S81.801A - UNSPECIFIED OPEN WOUND, RIGHT LOWER LEG, INITIAL ENCOUNTER SNOMED Code(s): 49767342332614277 Plan: 1patient presented to hospital with mental status changes possibly fentanyl overdose patches has been removed patient also have chronic nonhealing wound to the right leg which has been there for many years with exposed hardware and likely concerning for osteomyelitis patient wound has increased in size compared to 2-year ago when I saw the patient last with the hardware exposed and highly suspicious for possible osteomyelitis will need to cover for resistant gram- positive as well as gram-negative pathogen. 2local wound culture currently growing present MRSA patient did have elevated sed rate of 85 3patient with renal insufficiency high risk of nephrotoxicity noted improvement in his kidney function. 4patient with multiple antibiotic ALLERGIES that would limit the number of antibiotic safe to use. 5patient benefit from removal of the infected hardware in the wound bed in order to completely heal this infection 6we will continue patient on cefepime and vancomycin while waiting for the culture to finalize Dictation was produced using Humansized dictation software. please excuse any grammatical, word or spelling errors. Time with Patient: Less than 30
[2023-09-28 16:25] LABS: Appearance,BF Bloody (Clear); RBC, Body Fluid 305 /UL (0-2000)
[2023-09-28 17:54] LABS: Glucose,Whole Blood 143 mg/dL (70-110)
[2023-09-28 20:12] LABS: Glucose,Whole Blood 151 mg/dL (70-110)
[2023-09-28] MEDS: SODIUM CHLORIDE 0.9% 1,000 ML IV SCH (22:28)
[2023-09-29 04:40] LABS: Hypochromasia Moderate; MCH 32.3 pg (25.0-35.0); MCHC 30.4 g/dL (31.0-37.0); MCV 106.4 fL (80.0-100.0); Macrocytosis Moderate; Mean Platelet Volume 9.9; Platelet Count 188 k/uL (150-450); RBC 2.91 m/uL (4.30-5.90); RDW 14.9 % (11.5-15.5); WBC 13.9 k/uL (3.8-10.6)
[2023-09-29 04:48] LABS: HGB 9.4 gm/dL (13.0-17.5)
[2023-09-29 05:03] LABS: African American GFR (CKD) >90 (>60 ml/min/1.73 sqM); Anion Gap 5 mmol/L; Blood Urea Nitrogen 37 mg/dL (9-20); Calcium 7.8 mg/dL (8.4-10.2); Carbon Dioxide 18 mmol/L (22-30); Chloride 117 mmol/L (98-107); Glucose 138 mg/dL (74-99); Magnesium 1.7 mg/dL (1.6-2.3); Non-African American GFR(CKD) >90 (>60 ml/min/1.73 sqM); Potassium 4.5 mmol/L (3.5-5.1); Sodium 140 mmol/L (137-145)
[2023-09-29 05:22] LABS: ABG Base Excess -7.6 mmol/L; ABG HCO3 18 mmol/L (21-25); ABG Oxygen Saturation 97.6 % (94-97); ABG PCO2 36 mmHg (35-45); ABG PH 7.31 (7.35-7.45); ABG PO2 87 mmHg (83-108); ABG TCO2 19 mmol/L (19-24)
[2023-09-29] MEDS: MAGNESIUM SULFATE-D5W PMX 1 GM in DEXTROSE/WATER 1 100ML.BAG IVPB ONE (05:22)
[2023-09-29 05:24] LABS: Allen Test Performed? no
[2023-09-29 06:16] LABS: Glucose,Whole Blood 154 mg/dL (70-110)
[2023-09-29 06:29] LABS: Glucose,Whole Blood 144 mg/dL (70-110)
[2023-09-29] MEDS ORDERED: MAGNESIUM SULFATE-D5W PMX 1 GM in DEXTROSE/WATER 1 100ML.BAG IVPB ONE (07:47)
--- NOTE | 2023-09-29 08:42 | XR ---
EXAMINATION TYPE: XR chest 1V portable DATE OF EXAM: 09/29/2023 COMPARISON: 09/28/2023 INDICATION: Tube placement TECHNIQUE: Single frontal view of the chest is obtained. FINDINGS: The heart size is enlarged. The pulmonary vasculature is normal. Bilateral lung infiltrates are present. There may be slight improvement on the left. Endotracheal tube tip is above the anthony. Nasogastric tube tip is in the left arm of the abdomen. Ri ght central venous catheter tip is within the deep right atrium. IMPRESSION: 1. Diffuse bilateral lung infiltrates. 2. Lines and catheters discussed above
--- NOTE | 2023-09-29 09:08 | CA ---
Transthoracic Echo Report Name: Sam Sanchez Age: 73 Gender: M : 1950 Exam Date: 09/28/2023 14:30 Exam Location: [facility] Ht (in): 69 Wt (lb): 182 Ordering Physician: David Grace MD Attending/Referring Phys: Aircraft Engine Mechanic Laly Carlton RDCS Procedure CPT: Indications: broch and line insertion Cardiac Hx: Technical Quality: Fair Contrast 1: Total Dose (mL): Contrast 2: Total Dose (mL): MEASUREMENTS (Male / Female) Normal Values 2D ECHO LV Diastolic Diameter PLAX 4.8 cm 4.2 - 5.9 / 3.9 - 5.3 cm LV Systolic Diameter PLAX 2.7 cm IVS Diastolic Thickness 1.5 cm 0.6 - 1.0 / 0.6 - 0.9 cm LVPW Diastolic Thickness 1.4 cm 0.6 - 1.0 / 0.6 - 0.9 cm LV Relative Wall Thickness 0.6 RV Internal Dim ED PLAX 4.2 cm LVOT Diameter 1.9 cm LA Volume 86.9 cm??? 18 - 58 / 22 - 52 cm??? LA Volume Index 43.0 cm???/m??? 16 - 28 cm???/m??? M-MODE Aortic Root Diameter MM 3.2 cm LA Systolic Diameter MM 5.8 cm LA Ao Ratio MM 1.8 AV Cusp Separation MM 1.2 cm DOPPLER AV Peak Velocity 346.9 cm/s AV Peak Gradient 48.1 mmHg AV Mean Velocity 250.4 cm/s AV Mean Gradient 27.5 mmHg AV Velocity Time Integral 81.7 cm LVOT Peak Velocity 75.9 cm/s LVOT Peak Gradient 2.3 mmHg LVOT Velocity Time Integral 19.5 cm LVOT Stroke Volume 54.7 cm??? LVOT Stroke Volume Index 27.6 ml/m??? LVOT Cardiac Index 1435.1 cm???/min???m??? AV Area Cont Eq vti 0.7 cm??? AV Area Cont Eq pk 0.6 cm??? MV Area PHT 3.2 cm??? Mitral E Point Velocity 127.2 cm/s Mitral A Point Velocity 66.4 cm/s Mitral E to A Ratio 1.9 MV Deceleration Time 240.5 ms MV E' Velocity 4.1 cm/s Mitral E to MV E' Ratio 31.2 TR Peak Velocity 296.7 cm/s TR Peak Gradient 35.2 mmHg Right Ventricular Systolic Press 38.7 mmHg FINDINGS Left Ventricle Moderately increased septal wall thickness. Left ventricular cavity size normal. Abnormal (paradoxical) septal motion consistent with postoperative state. Hypokinetic anterior wall. Left ventricular ejection fraction is estimated at 40 %. Grade 2 diastolic dysfunction. Right Ventricle Right ventricular dilatation. Mild pulmonary hypertension. Right ventricular systolic pressure estimated at 39 mm hg. Right Atrium Right atrial dilatation. Left Atrium Severely increased left atrial volume. Mildly increased left atrial area. Mitral Valve Structurally normal mitral valve. Mitral valve thickened. Moderate mitral annular calcification. Moderate mitral regurgitation. Aortic Valve Moderate to severe aortic stenosis with a peak gradient of 48 mmHg and a mean gradient of 28 mmHg. component of low-flow low-gradient aortic stenosis. Tricuspid Valve Structurally normal tricuspid valve. Mild tricuspid regurgitation. Pulmonic Valve Structurally normal pulmonic valve. Trace pulmonic regurgitation. Pericardium No pericardial effusion. Aorta Normal size aortic root and proximal ascending aorta. CONCLUSIONS Left ventricular ejection fraction 40% RVSP 39 Moderate mitral annular calcification Moderate mitral regurgitation Moderate to severe aortic stenosis with dimensionless index 0.22. Consider MAGGIE, low-dose dobutamine stress echo if clinically indicated. Mild tricuspid regurgitation Previewed by: Dr. Blaise Navarro DO (Electronically Signed) Final Date: 29 September 2023 09:07
[2023-09-29] MEDS: fentaNYL (PF). 1,000 MCG in SODIUM CHLORIDE 0.9% 80 ML IV SCH (09:37)
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
[2023-09-29] MEDS: NOREPINEPHRINE 8 MG in SODIUM CHLORIDE 0.9% 250 ML IV SCH (12:17)
[2023-09-29 13:01] LABS: Glucose,Whole Blood 152 mg/dL (70-110)
--- NOTE | 2023-09-29 14:46 | P.PN ---
Subjective Progress Note Date: 09/29/23 Principal diagnosis: Reason for follow-up is right leg wound and osteomyelitis The patient is a 73-year-old male with a past medical history significant for diabetes mellitus hypertension hyperlipidemia coronary disease prostate disorder, patient did have a history of previous injury to the right leg requiring operative repair with hardware and has been dealing with a nonhealing wound to the right anterior leg for few years presented to hospital mental status changes possible overdose on fentanyl patch with a worsening wound to the right leg prompting this consultation. On today's evaluation that is 09/29/2023, patient did have low-grade fever 100.2 at 4 AM the patient is afebrile since then, the patient is intubated on the vent FiO2 at 40% hemodynamically stable no diarrhea or any other changes reported by nursing staff. Patient white count is down to 13.9 creatinine 0.75 culture with MRSA and bacteroids Objective - Vital Signs Vital signs: Vital Signs Temp 99.5 F 09/29/23 08:00 Pulse 93 09/29/23 12:03 Resp 24 09/29/23 11:00 BP 105/53 09/28/23 18:00 Pulse Ox 97 09/29/23 11:00 FiO2 40 09/29/23 11:45 Intake & Output 09/28/23 09/29/23 09/29/23 18:59 06:59 18:59 Intake Total 417.014 7269.505 831.948 Output Total 441 1347 555 Balance 549.298 787.505 276.948 Weight 82.6 kg 91.2 kg 91.2 kg Intake: IV 610 1231 655 .9 500 Bolus 500 0.9 KVO 10 40 0.9 presure bags 66 30 Cefepime 2 gm In Sodium 100 100 Chloride 0.9% 100 ml @ 25 mls/hr IVPB Q12H MEG Rx# :[id number] DAPTOmycin 450 mg In 50 Sodium Chloride 0.9% 50 ml @ 100 mls/hr IVPB Q24H MEG Rx#:[id number] Magnesium Sulfate-D5w Pmx 100 1 gm In Dextrose/Water 1 100ml.bag @ 100 mls/hr IVPB ONCE ONE Rx#: [id number] Sodium Chloride 0.9% 1, 875 625 000 ml @ 125 mls/hr IV . Q8H MEG Rx#:[id number] Intake, IV Titration 380.298 903.505 176.948 Amount Norepinephrine 4 mg In 221.239 635.372 116.443 Sodium Chloride 0.9% 250 ml @ 0.03 MCG/KG/MIN 9. 441 mls/hr IV .Q24H MEG Rx#:[id number] propofoL 1,000 mg In 159.059 268.133 60.505 Empty Bag 1 bag @ 15 MCG/ KG/MIN 7.434 mls/hr IV . [id number] MEG Rx#:[id number] Output: Gastric Drainage 350 Urine 441 997 555 Other: Voiding Method Indwelling Catheter Indwelling Catheter Indwelling Catheter ABP, PAP, CO, CI - Last Documented Arterial Blood Pressure 111/41 - Exam GENERAL DESCRIPTION: An elderly male intubated on the vent RESPIRATORY SYSTEM: Unlabored breathing , decreased breath sounds at bases HEART: S1 S2 regular rate and rhythm , ABDOMEN: Soft , no tenderness EXTREMITIES: Right leg wound is currently dressed - Labs CBC & Chem 7: 09/29/23 04:22 09/29/23 04:22 Labs: Abnormal Lab Results - Last 24 Hours (Table) 09/28/23 09/28/23 09/28/23 Range/Units 08:30 17:52 20:10 WBC (3.8-10.6) k/uL RBC (4.30-5.90) m/uL Hgb (13.0-17.5) gm/dL Hct (39.0-53.0) % MCV (80.0-100.0) fL MCHC (31.0-37.0) g/dL ABG pH (7.35-7.45) ABG HCO3 (21-25) mmol/L ABG O2 Saturation (94-97) % Chloride (98-107) mmol/L Carbon Dioxide (22-30) mmol/L BUN (9-20) mg/dL Glucose (74-99) mg/dL POC Glucose (mg/dL) 143 H 151 H (70-110) mg/dL Calcium (8.4-10.2) mg/dL Fluid Appearance Bloody A (Clear) 09/29/23 09/29/23 09/29/23 Range/Units 04:22 04:22 05:22 WBC 13.9 H (3.8-10.6) k/uL RBC 2.91 L (4.30-5.90) m/uL Hgb 9.4 L D (13.0-17.5) gm/dL Hct 31.0 L (39.0-53.0) % MCV 106.4 H (80.0-100.0) fL MCHC 30.4 L (31.0-37.0) g/dL ABG pH 7.31 L (7.35-7.45) ABG HCO3 18 L (21-25) mmol/L ABG O2 Saturation 97.6 H (94-97) % Chloride 117 H (98-107) mmol/L Carbon Dioxide 18 L (22-30) mmol/L BUN 37 H (9-20) mg/dL Glucose 138 H (74-99) mg/dL POC Glucose (mg/dL) (70-110) mg/dL Calcium 7.8 L (8.4-10.2) mg/dL Fluid Appearance (Clear) 09/29/23 09/29/23 09/29/23 Range/Units 06:15 06:27 12:59 WBC (3.8-10.6) k/uL RBC (4.30-5.90) m/uL Hgb (13.0-17.5) gm/dL Hct (39.0-53.0) % MCV (80.0-100.0) fL MCHC (31.0-37.0) g/dL ABG pH (7.35-7.45) ABG HCO3 (21-25) mmol/L ABG O2 Saturation (94-97) % Chloride (98-107) mmol/L Carbon Dioxide (22-30) mmol/L BUN (9-20) mg/dL Glucose (74-99) mg/dL POC Glucose (mg/dL) 154 H 144 H 152 H (70-110) mg/dL Calcium (8.4-10.2) mg/dL Fluid Appearance (Clear) Microbiology - Last 24 Hours (Table) 09/28/23 08:30 Gram Stain - Preliminary Bronchoalviolar Lavage - Right Bronchial Washings Culture - Preliminary 09/26/23 17:45 Anaerobic Culture - Final Leg - Right Bacteroides thetaiotaomicron 09/26/23 17:45 Gram Stain - Final Leg - Right Wound Culture - Final Methicillin resist S. aureus 09/26/23 11:47 Blood Culture - Preliminary Blood 09/26/23 11:30 Blood Culture - Preliminary Blood Assessment and Plan (1) Allergy to multiple antibiotics Current Visit: Yes Status: Acute Code(s): Z88.1 - ALLERGY STATUS TO OTHER ANTIBIOTIC AGENTS SNOMED Code(s): 718852020 (2) Leukocytosis Current Visit: Yes Status: Acute Code(s): D72.829 - ELEVATED WHITE BLOOD CELL COUNT, UNSPECIFIED SNOMED Code(s): 892328032 (3) Leg wound, right Current Visit: Yes Status: Acute Code(s): S81.801A - UNSPECIFIED OPEN WOUND, RIGHT LOWER LEG, INITIAL ENCOUNTER SNOMED Code(s): 31907448046311044 Plan: 1patient presented to hospital with mental status changes possibly fentanyl overdose patches has been removed patient also have chronic nonhealing wound to the right leg which has been there for many years with exposed hardware and likely concerning for osteomyelitis patient wound has increased in size compared to 2-year ago when I saw the patient last with the hardware exposed and highly suspicious for possible osteomyelitis . 2local wound culture currently growing MRSA and bacteroids patient did have elevated sed rate of 85 3patient with multiple antibiotic ALLERGIES that would limit the number of antibiotic safe to use. 4patient benefit from removal of the infected hardware in the wound bed in order to completely heal this infection 5patient to continue with the daptomycin and Flagyl to cover for the bacteroids discontinue cefepime as no gram-negative has been grown Dictation was produced using [employer] dictation software. please excuse any grammatical, word or spelling errors.
[2023-09-29] MEDS: metroNIDAZOLE-NS PMX 500 MG in SALINE 1 100ML.BAG IVPB SCH (15:49)
[2023-09-29 18:23] LABS: Glucose,Whole Blood 144 mg/dL (70-110)
[2023-09-29] MEDS: INSULIN ASPART (NovoLOG) 100 UNIT/ML VIAL SQ SCH (18:25)
[2023-09-29 23:35] LABS: Glucose,Whole Blood 158 mg/dL (70-110)
[2023-09-30 05:27] LABS: ABG Base Excess -8.6 mmol/L; ABG HCO3 18 mmol/L (21-25); ABG Oxygen Saturation 99.7 % (94-97); ABG PCO2 43 mmHg (35-45); ABG PH 7.24 (7.35-7.45); ABG PO2 155 mmHg (83-108); ABG TCO2 20 mmol/L (19-24)
[2023-09-30 05:29] LABS: Glucose,Whole Blood 173 mg/dL (70-110)
[2023-09-30 05:32] LABS: Allen Test Performed? no
[2023-09-30 05:41] LABS: HCT 30.6 % (39.0-53.0); HGB 9.5 gm/dL (13.0-17.5); Hypochromasia Marked; MCH 33.8 pg (25.0-35.0); MCHC 31.1 g/dL (31.0-37.0); Macrocytosis Marked; Mean Platelet Volume 9.2; Platelet Count 169 k/uL (150-450); RBC 2.82 m/uL (4.30-5.90); RDW 15.2 % (11.5-15.5); WBC 9.9 k/uL (3.8-10.6)
[2023-09-30 05:43] LABS: MCV 108.6 fL (80.0-100.0)
[2023-09-30 05:54] LABS: African American GFR (CKD) >90 (>60 ml/min/1.73 sqM); Anion Gap 4 mmol/L; Blood Urea Nitrogen 23 mg/dL (9-20); Calcium 7.6 mg/dL (8.4-10.2); Carbon Dioxide 18 mmol/L (22-30); Chloride 120 mmol/L (98-107); Glucose 177 mg/dL (74-99); Non-African American GFR(CKD) >90 (>60 ml/min/1.73 sqM); Potassium 4.4 mmol/L (3.5-5.1); Sodium 142 mmol/L (137-145)
[2023-09-30] MEDS: MAGNESIUM SULFATE-D5W PMX 1 GM in DEXTROSE/WATER 1 100ML.BAG IVPB ONE (06:34)
--- NOTE | 2023-09-30 07:56 | XR ---
EXAMINATION TYPE: XR chest 1V portable DATE OF EXAM: 09/30/2023 COMPARISON: 09/29/2023 HISTORY: SOB, Follow Up FINDINGS: Indwelling tubes and catheters are unchanged. No change in scattered bilateral opacities. Stable appearance of the cardio-mediastinal structures at this time. Pleural effusion unchanged. IMPRESSION: 1. Stable portable chest. Clinical correlation and follow up until resolution is recommended.
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
[2023-09-30 12:03] LABS: Glucose,Whole Blood 195 mg/dL (70-110)
[2023-09-30] MEDS: FUROSEMIDE 10 MG/ML 2 ML VIAL IV SCH (12:11)
[2023-09-30] MEDS: SODIUM BICARB 8.4% 50 ML SYR (1 MEQ/ML) IV STA (12:11)
--- NOTE | 2023-09-30 12:22 | P.PN ---
Subjective Progress Note Date: 09/30/23 Principal diagnosis: Reason for follow-up is right leg wound and osteomyelitis The patient is a 73-year-old male with a past medical history significant for diabetes mellitus hypertension hyperlipidemia coronary disease prostate disorder, patient did have a history of previous injury to the right leg requiring operative repair with hardware and has been dealing with a nonhealing wound to the right anterior leg for few years presented to hospital mental status changes possible overdose on fentanyl patch with a worsening wound to the right leg prompting this consultation. On today's evaluation that is 09/30/2023, Patient is afebrile this morning patient remains to be intubated on the vent FiO2 is currently stable at 35% no significant purulent secretion through the ET or any other changes reported by nursing staff. Patient white count 9.9, creatinine 0.61 BAL currently been negative Objective - Vital Signs Vital signs: Vital Signs Temp 98.3 F 09/30/23 08:00 Pulse 75 09/30/23 11:08 Resp 24 09/30/23 11:00 BP 105/53 09/28/23 18:00 Pulse Ox 98 09/30/23 11:00 FiO2 35 09/30/23 11:05 Intake & Output 09/29/23 09/30/23 09/30/23 18:59 06:59 18:59 Intake Total 2115.003 3020.648 633.077 Output Total 1165 860 130 Balance 629.915 0704.648 503.077 Weight 90.7 kg Intake: IV 1722 1803 362 0.9 presure bags 72 78 12 Cefepime 2 gm In Sodium 100 Chloride 0.9% 100 ml @ 25 mls/hr IVPB Q12H [facility] Rx# :[id number] DAPTOmycin 450 mg In 50 Sodium Chloride 0.9% 50 ml @ 100 mls/hr IVPB Q24H [facility] Rx#:[id number] Magnesium Sulfate-D5w Pmx 100 1 gm In Dextrose/Water 1 100ml.bag @ 100 mls/hr IVPB ONCE ONE Rx#: [id number] Sodium Chloride 0.9% 1, 1500 1625 250 000 ml @ 50 mls/hr IV . Q20H [facility] Rx#:[id number] metroNIDAZOLE-NS PMX 500 100 mg In Saline 1 100ml.bag @ 100 mls/hr IVPB Q8HR [facility] Rx#:[id number] Intake, IV Titration 373.003 817.648 161.077 Amount Norepinephrine 4 mg In 116.443 Sodium Chloride 0.9% 250 ml @ 0.03 MCG/KG/MIN 9. 441 mls/hr IV .Q24H [facility] Rx#:[id number] Norepinephrine 8 mg In 15.265 603.088 Sodium Chloride 0.9% 250 ml @ 0.18 MCG/KG/MIN 31. 765 mls/hr IV .Q8H8M [facility] Rx#:[id number] fentaNYL (PF). 1,000 mcg 37.012 24.32 97.888 In Sodium Chloride 0.9% 80 ml @ 0.5 MCG/KG/HR 4. 56 mls/hr IV .[id number] ME[facility] Rx#:[id number] propofoL 1,000 mg In 204.283 190.240 63.189 Empty Bag 1 bag @ 15 MCG/ KG/MIN 7.434 mls/hr IV . [id number] [facility] Rx#:[id number] Tube Feeding 20 400 80 Other 30 Output: Urine 1165 860 130 Other: Voiding Method Indwelling Catheter Indwelling Catheter Indwelling Catheter ABP, PAP, CO, CI - Last Documented Arterial Blood Pressure 122/39 - Exam GENERAL DESCRIPTION: An elderly male intubated on the vent RESPIRATORY SYSTEM: Unlabored breathing , decreased breath sounds at bases HEART: S1 S2 regular rate and rhythm , ABDOMEN: Soft , no tenderness EXTREMITIES: Right leg wound is currently dressed - Labs CBC & Chem 7: 09/30/23 05:07 09/30/23 05:07 Labs: Abnormal Lab Results - Last 24 Hours (Table) 09/29/23 09/29/23 09/29/23 Range/Units 12:59 18:23 23:33 RBC (4.30-5.90) m/uL Hgb (13.0-17.5) gm/dL Hct (39.0-53.0) % MCV (80.0-100.0) fL Macrocytosis ABG pH (7.35-7.45) ABG pO2 (83-108) mmHg ABG HCO3 (21-25) mmol/L ABG O2 Saturation (94-97) % Chloride (98-107) mmol/L Carbon Dioxide (22-30) mmol/L BUN (9-20) mg/dL Creatinine (0.66-1.25) mg/dL Glucose (74-99) mg/dL POC Glucose (mg/dL) 152 H 144 H 158 H (70-110) mg/dL Calcium (8.4-10.2) mg/dL 09/30/23 09/30/23 09/30/23 Range/Units 05:07 05:07 05:25 RBC 2.82 L (4.30-5.90) m/uL Hgb 9.5 L (13.0-17.5) gm/dL Hct 30.6 L (39.0-53.0) % MCV 108.6 H (80.0-100.0) fL Macrocytosis Marked A ABG pH 7.24 L (7.35-7.45) ABG pO2 155 H (83-108) mmHg ABG HCO3 18 L (21-25) mmol/L ABG O2 Saturation 99.7 H (94-97) % Chloride 120 H (98-107) mmol/L Carbon Dioxide 18 L (22-30) mmol/L BUN 23 H (9-20) mg/dL Creatinine 0.61 L (0.66-1.25) mg/dL Glucose 177 H (74-99) mg/dL POC Glucose (mg/dL) (70-110) mg/dL Calcium 7.6 L (8.4-10.2) mg/dL 09/30/23 Range/Units 05:27 RBC (4.30-5.90) m/uL Hgb (13.0-17.5) gm/dL Hct (39.0-53.0) % MCV (80.0-100.0) fL Macrocytosis ABG pH (7.35-7.45) ABG pO2 (83-108) mmHg ABG HCO3 (21-25) mmol/L ABG O2 Saturation (94-97) % Chloride (98-107) mmol/L Carbon Dioxide (22-30) mmol/L BUN (9-20) mg/dL Creatinine (0.66-1.25) mg/dL Glucose (74-99) mg/dL POC Glucose (mg/dL) 173 H (70-110) mg/dL Calcium (8.4-10.2) mg/dL Microbiology - Last 24 Hours (Table) 09/28/23 08:30 Gram Stain - Final Bronchoalviolar Lavage - Right Bronchial Washings Culture - Final 09/28/23 08:30 Acid Fast Bacilli Smear - Preliminary Bronchoalviolar Lavage - Right 09/26/23 11:30 Blood Culture - Preliminary Blood 09/26/23 11:47 Blood Culture - Preliminary Blood Assessment and Plan (1) Allergy to multiple antibiotics Current Visit: Yes Status: Acute Code(s): Z88.1 - ALLERGY STATUS TO OTHER ANTIBIOTIC AGENTS SNOMED Code(s): 500767387 (2) Leukocytosis Current Visit: Yes Status: Acute Code(s): D72.829 - ELEVATED WHITE BLOOD CELL COUNT, UNSPECIFIED SNOMED Code(s): 703939798 (3) Leg wound, right Current Visit: Yes Status: Acute Code(s): S81.801A - UNSPECIFIED OPEN WOUND, RIGHT LOWER LEG, INITIAL ENCOUNTER SNOMED Code(s): 25986215398856573 Plan: 1patient presented to hospital with mental status changes possibly fentanyl overdose patches has been removed patient also have chronic nonhealing wound to the right leg which has been there for many years with exposed hardware and likely concerning for osteomyelitis patient wound has increased in size compared to 2-year ago when I saw the patient last with the hardware exposed and highly suspicious for possible osteomyelitis . 2local wound culture currently growing MRSA and bacteroids patient did have elevated sed rate of 85 3patient with multiple antibiotic ALLERGIES that would limit the number of antibiotic safe to use. 4patient benefit from removal of the infected hardware in the wound bed in order to completely heal this infection 5patient did have resolution of his fever white count normalized, to continue with the daptomycin and Flagyl and monitor clinical course closely Dictation was produced using [employer] dictation software. please excuse any grammatical, word or spelling errors. Time with Patient: Less than 30
[2023-09-30 18:17] LABS: Glucose,Whole Blood 162 mg/dL (70-110)
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
--- NOTE | 2023-09-30 23:24 | CONS ---
CONSULTATION CHIEF COMPLAINT: Aortic stenosis. HISTORY OF PRESENT ILLNESS: Mr. Sanchez is a 73-year-old gentleman, who is admitted to hospital with confusion and subsequently became hypoxic, developed respiratory failure and had to be intubated and placed on vent. As part of his evaluation, he underwent an echocardiogram that revealed moderate aortic stenosis, due to which Cardiology had been consulted. At the time of my evaluation, he is intubated on vent and stable hemodynamically. His history is significant for hypertension, diabetes, dyslipidemia, coronary artery disease, status post CABG with KAUFMAN to LAD and venous graft to OM1 and 2. Echocardiogram showed moderate LV systolic dysfunction with an ejection fraction of 40% with hypokinetic anterior wall. There is mild pulmonary hypertension noted. There is moderate mitral annular calcification with moderate mitral regurgitation. There is bbnorwzz-oe-qjrpnq aortic stenosis noted. PAST MEDICAL HISTORY: Significant for coronary artery disease, status post CABG, aortic stenosis, hypertension, dyslipidemia, diabetes. MEDICATIONS: Medications at home included; 1. Flomax. 2. Lipitor. 3. Zyloprim. 4. Norvasc. 5. Glucotrol. 6. Zestril. 7. Lopressor. 8. Glucophage. 9. Offerman. ALLERGIES: To penicillin and sulfa. FAMILY HISTORY: I am unable to obtain from the patient. SOCIAL HISTORY: I am unable to obtain from the patient. REVIEW OF SYSTEMS: I am unable to obtain from the patient. PHYSICAL EXAMINATION: GENERAL: Comfortable at rest. VITAL SIGNS: Stable. CHEST: Reveals diminished air entry at the bases. HEART: Reveals first and second heart sounds. No gallop. Has a 4/5 ejection systolic murmur at the right parasternal border. ABDOMEN: Soft. EXTREMITIES: Reveal bilateral mild edema and chronic skin changes. LABORATORY DATA: Labs show hemoglobin of 9.5, platelet count is 169. Potassium is 4.4, creatinine is 0.6. ASSESSMENT AND PLAN: 1. Ayygygag-nb-rczwrg aortic stenosis. 2. Vent requiring respiratory failure. 3. Hypertension. 4. Diabetes. 5. Dyslipidemia. 6. Coronary artery disease, status post prior bypass surgery. PLAN: From cardiac standpoint when the patient's clinical status improves, he needs to undergo further evaluation for his aortic stenosis, and if necessary consider TAVR, this is not an evaluation we are going to do during this hospitalization. Thank you for consulting us to participate in the care of this pleasant gentleman. We will follow with you. MMUMERL / IJN: [id number] /
[2023-10-01 00:48] LABS: Glucose,Whole Blood 183 mg/dL (70-110)
[2023-10-01 04:39] LABS: African American GFR (CKD) >90 (>60 ml/min/1.73 sqM); Anion Gap 4 mmol/L; Blood Urea Nitrogen 23 mg/dL (9-20); Calcium 7.6 mg/dL (8.4-10.2); Carbon Dioxide 21 mmol/L (22-30); Chloride 119 mmol/L (98-107); Glucose 200 mg/dL (74-99); Non-African American GFR(CKD) >90 (>60 ml/min/1.73 sqM); Potassium 4.3 mmol/L (3.5-5.1); Sodium 144 mmol/L (137-145)
[2023-10-01 04:59] LABS: HCT 29.2 % (39.0-53.0); HGB 9.1 gm/dL (13.0-17.5); Hypochromasia Marked; MCH 34.1 pg (25.0-35.0); MCHC 31.3 g/dL (31.0-37.0); Macrocytosis Marked; Mean Platelet Volume 9.6; Platelet Count 157 k/uL (150-450); RBC 2.68 m/uL (4.30-5.90); RDW 15.4 % (11.5-15.5); WBC 8.1 k/uL (3.8-10.6)
[2023-10-01 06:21] LABS: ABG Base Excess -4.6 mmol/L; ABG HCO3 22 mmol/L (21-25); ABG Oxygen Saturation 99.2 % (94-97); ABG PCO2 47 mmHg (35-45); ABG PH 7.28 (7.35-7.45); ABG PO2 118 mmHg (83-108); ABG TCO2 23 mmol/L (19-24)
[2023-10-01 06:21] LABS: Glucose,Whole Blood 175 mg/dL (70-110)
[2023-10-01] MEDS: MAGNESIUM SULFATE-D5W PMX 1 GM in DEXTROSE/WATER 1 100ML.BAG IVPB ONE (06:38)
--- NOTE | 2023-10-01 08:34 | XR ---
EXAMINATION TYPE: XR chest 1V portable DATE OF EXAM: 10/01/2023 Comparison: 09/30/2023 Clinical History: 73-year-old male Tube placement Findings: ET tube satisfactory. NG tube sidehole at or just below the GE junction. Median sternotomy wires and post-CABG clips. Right right IJ CVC tip obscured by overlying EKG leads. Suspected in the lower right atrium. Heart mildly enlarged. Diffuse interstitial patchy airspace opacities persist possibly with slight worsening. Trace pleural effusion on the left. Impression: Diffuse interstitial and patchy airspace disease similar to slightly worsened. Possible trace left ef fusion.
--- NOTE | 2023-10-01 09:38 | P.PN ---
Subjective Progress Note Date: 10/01/23 The patient is a 73-year-old male who was admitted to the hospital with acute hypoxic respiratory failure. Echocardiogram revealed mildly reduced LV function at 40% with anterior wall hypokinesis as well as moderate to severe aortic stenosis. Cardiology was consulted for aortic stenosis and plan of care. Patient is currently sedated and intubated. GENERAL: Well-appearing, well-nourished and in no acute distress. Sedated on ventilator NECK: Supple without JVD or thyromegaly. LUNGS: Breath sounds diminished to auscultation bilaterally. Respiration equal and unlabored. No wheezes, rales or rhonchi. HEART: Regular rate and rhythm. Systolic ejection murmur. Rubs or gallops. S1 and S2 heard. EXTREMITIES: Normal range of motion, mild edema. No clubbing or cyanosis. Peripheral pulses intact and strong. TELEMETRY: Sinus rhythm overnight LABS: WBC 8.1, hemoglobin 9.1, platelet 157, sodium 144, potassium 4.3, BUN 23, creatinine 0.62, magnesium 1.8 IMPRESSION: Acute hypoxic respiratory failure Moderate to severe aortic stenosis Cardiomyopathy, EF 40 to 45% Hypertension Diabetes Dyslipidemia History of CAD with prior CABG PLAN: Metoprolol succinate 25 mg daily for cardiomyopathy Discontinue amlodipine and consider resuming JOHANNY or ARB in the future Continue supportive treatment No plans for TAVR workup during this admission I am dictating on behalf of Dr Rhett Florian's history/physical and assessment/plan. Objective - Vital Signs Vital signs: Vital Signs Temp 99.4 F 10/01/23 04:00 Pulse 89 10/01/23 07:50 Resp 24 10/01/23 07:00 BP 105/53 09/28/23 18:00 Pulse Ox 97 10/01/23 07:00 FiO2 35 10/01/23 07:37 Intake & Output 09/30/23 10/01/23 10/01/23 18:59 06:59 18:59 Intake Total 2318.500 1941.446 218.498 Output Total 1430 1305 60 Balance 888.500 636.446 158.498 Intake: IV 1072 716 56 0.9 presure bags 72 66 6 DAPTOmycin 450 mg In 50 Sodium Chloride 0.9% 50 ml @ 100 mls/hr IVPB Q24H [facility] Rx#:[id number] Sodium Chloride 0.9% 1, 750 550 50 000 ml @ 50 mls/hr IV . Q20H [facility] Rx#:[id number] metroNIDAZOLE-NS PMX 500 200 100 mg In Saline 1 100ml.bag @ 100 mls/hr IVPB Q8HR [facility] Rx#:[id number] Intake, IV Titration 726.500 653.446 110.498 Amount Norepinephrine 8 mg In 282.207 241.884 110.498 Sodium Chloride 0.9% 250 ml @ 0.18 MCG/KG/MIN 31. 765 mls/hr IV .Q8H8M [facility] Rx#:[id number] fentaNYL (PF). 1,000 mcg 185.288 128.136 In Sodium Chloride 0.9% 80 ml @ 0.5 MCG/KG/HR 4. 56 mls/hr IV .[id number] [facility] Rx#:[id number] propofoL 1,000 mg In 259.005 283.426 Empty Bag 1 bag @ 15 MCG/ KG/MIN 7.434 mls/hr IV . [id number] [facility] Rx#:[id number] Tube Feeding 460 572 52 Other 60 Output: Urine 1430 1305 60 Other: Voiding Method Indwelling Catheter Indwelling Catheter ABP, PAP, CO, CI - Last Documented Arterial Blood Pressure 134/39 - Labs CBC & Chem 7: 10/01/23 04:00 10/01/23 04:00 Labs: Abnormal Lab Results - Last 24 Hours (Table) 09/30/23 09/30/23 10/01/23 Range/Units 12:01 18:16 00:45 RBC (4.30-5.90) m/uL Hgb (13.0-17.5) gm/dL Hct (39.0-53.0) % MCV (80.0-100.0) fL Macrocytosis ABG pH (7.35-7.45) ABG pCO2 (35-45) mmHg ABG pO2 (83-108) mmHg ABG O2 Saturation (94-97) % Chloride (98-107) mmol/L Carbon Dioxide (22-30) mmol/L BUN (9-20) mg/dL Creatinine (0.66-1.25) mg/dL Glucose (74-99) mg/dL POC Glucose (mg/dL) 195 H 162 H 183 H (70-110) mg/dL Calcium (8.4-10.2) mg/dL 10/01/23 10/01/23 10/01/23 Range/Units 04:00 04:00 06:04 RBC 2.68 L (4.30-5.90) m/uL Hgb 9.1 L (13.0-17.5) gm/dL Hct 29.2 L (39.0-53.0) % MCV 109.0 H (80.0-100.0) fL Macrocytosis Marked A ABG pH 7.28 L (7.35-7.45) ABG pCO2 47 H (35-45) mmHg ABG pO2 118 H (83-108) mmHg ABG O2 Saturation 99.2 H (94-97) % Chloride 119 H (98-107) mmol/L Carbon Dioxide 21 L (22-30) mmol/L BUN 23 H (9-20) mg/dL Creatinine 0.62 L (0.66-1.25) mg/dL Glucose 200 H (74-99) mg/dL POC Glucose (mg/dL) (70-110) mg/dL Calcium 7.6 L (8.4-10.2) mg/dL 10/01/23 Range/Units 06:20 RBC (4.30-5.90) m/uL Hgb (13.0-17.5) gm/dL Hct (39.0-53.0) % MCV (80.0-100.0) fL Macrocytosis ABG pH (7.35-7.45) ABG pCO2 (35-45) mmHg ABG pO2 (83-108) mmHg ABG O2 Saturation (94-97) % Chloride (98-107) mmol/L Carbon Dioxide (22-30) mmol/L BUN (9-20) mg/dL Creatinine (0.66-1.25) mg/dL Glucose (74-99) mg/dL POC Glucose (mg/dL) 175 H (70-110) mg/dL Calcium (8.4-10.2) mg/dL Microbiology - Last 24 Hours (Table) 09/28/23 08:30 Gram Stain - Final Bronchoalviolar Lavage - Right Bronchial Washings Culture - Final
[2023-10-01] MEDS: METOPROLOL SUCCINATE (ER) 25 MG TAB.ER.24H PO SCH (10:33)
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
[2023-10-01 11:14] LABS: Nucleated Cells, Body Fluid 70 /UL
[2023-10-01] MEDS: IPRATROPIUM-ALBUTEROL 3 ML NEB INHALATION SCH (11:42)
[2023-10-01 12:21] LABS: Glucose,Whole Blood 198 mg/dL (70-110)
--- NOTE | 2023-10-01 17:21 | P.PN ---
Subjective Progress Note Date: 10/01/23 Principal diagnosis: Reason for follow-up is right leg wound and osteomyelitis The patient is a 73-year-old male with a past medical history significant for diabetes mellitus hypertension hyperlipidemia coronary disease prostate disorder, patient did have a history of previous injury to the right leg requiring operative repair with hardware and has been dealing with a nonhealing wound to the right anterior leg for few years presented to hospital mental status changes possible overdose on fentanyl patch with a worsening wound to the right leg prompting this consultation. On today's evaluation that is 10/01/2023,the patient has been afebrile patient is intubated on the vent FiO2 is currently stable at 35% no significant purulent secretions through the ET patient has been tolerating his tube feeds no diarrhea has been reported by the nursing staff. Patient white to normal at 8.1, creatinine 0.62 bronchoscopy culture has been pending so far Objective - Vital Signs Vital signs: Vital Signs Temp 99 F 10/01/23 12:00 Pulse 90 10/01/23 12:15 Resp 24 10/01/23 12:15 BP 105/53 09/28/23 18:00 Pulse Ox 97 10/01/23 12:15 FiO2 35 10/01/23 12:00 Intake & Output 09/30/23 10/01/23 10/01/23 18:59 06:59 18:59 Intake Total 2318.500 9859.467 3398.131 Output Total 1430 1305 1460 Balance 888.500 636.446 -408.869 Intake: IV 1072 716 436 0.9 presure bags 72 66 36 DAPTOmycin 450 mg In 50 Sodium Chloride 0.9% 50 ml @ 100 mls/hr IVPB Q24H [facility] Rx#:[id number] Sodium Chloride 0.9% 1, 750 550 300 000 ml @ 50 mls/hr IV . Q20H [facility] Rx#:[id number] metroNIDAZOLE-NS PMX 500 200 100 100 mg In Saline 1 100ml.bag @ 100 mls/hr IVPB Q8HR [facility] Rx#:[id number] Intake, IV Titration 726.500 653.446 273.131 Amount Norepinephrine 8 mg In 282.207 241.884 206.557 Sodium Chloride 0.9% 250 ml @ 0.18 MCG/KG/MIN 31. 765 mls/hr IV .Q8H8M [facility] Rx#:[id number] Sodium Chloride 0.9% 1, 50 000 ml @ 10 mls/hr IV . Q24H [facility] Rx#:[id number] fentaNYL (PF). 1,000 mcg 185.288 128.136 In Sodium Chloride 0.9% 80 ml @ 0.5 MCG/KG/HR 4. 56 mls/hr IV .[id number] [facility] Rx#:[id number] propofoL 1,000 mg In 259.005 283.426 16.574 Empty Bag 1 bag @ 15 MCG/ KG/MIN 7.434 mls/hr IV . [id number] [facility] Rx#:[id number] Tube Feeding 460 572 312 Other 60 30 Output: Urine 1430 1305 1460 Other: Voiding Method Indwelling Catheter Indwelling Catheter ABP, PAP, CO, CI - Last Documented Arterial Blood Pressure 111/34 - Exam GENERAL DESCRIPTION: An elderly male intubated on the vent RESPIRATORY SYSTEM: Unlabored breathing , decreased breath sounds at bases HEART: S1 S2 regular rate and rhythm , ABDOMEN: Soft , no tenderness EXTREMITIES: Right leg wound is currently dressed - Labs CBC & Chem 7: 10/01/23 04:00 10/01/23 04:00 Labs: Abnormal Lab Results - Last 24 Hours (Table) 09/30/23 10/01/23 10/01/23 Range/Units 18:16 00:45 04:00 RBC 2.68 L (4.30-5.90) m/uL Hgb 9.1 L (13.0-17.5) gm/dL Hct 29.2 L (39.0-53.0) % MCV 109.0 H (80.0-100.0) fL Macrocytosis Marked A ABG pH (7.35-7.45) ABG pCO2 (35-45) mmHg ABG pO2 (83-108) mmHg ABG O2 Saturation (94-97) % Chloride (98-107) mmol/L Carbon Dioxide (22-30) mmol/L BUN (9-20) mg/dL Creatinine (0.66-1.25) mg/dL Glucose (74-99) mg/dL POC Glucose (mg/dL) 162 H 183 H (70-110) mg/dL Calcium (8.4-10.2) mg/dL 10/01/23 10/01/23 10/01/23 Range/Units 04:00 06:04 06:20 RBC (4.30-5.90) m/uL Hgb (13.0-17.5) gm/dL Hct (39.0-53.0) % MCV (80.0-100.0) fL Macrocytosis ABG pH 7.28 L (7.35-7.45) ABG pCO2 47 H (35-45) mmHg ABG pO2 118 H (83-108) mmHg ABG O2 Saturation 99.2 H (94-97) % Chloride 119 H (98-107) mmol/L Carbon Dioxide 21 L (22-30) mmol/L BUN 23 H (9-20) mg/dL Creatinine 0.62 L (0.66-1.25) mg/dL Glucose 200 H (74-99) mg/dL POC Glucose (mg/dL) 175 H (70-110) mg/dL Calcium 7.6 L (8.4-10.2) mg/dL 10/01/23 Range/Units 12:18 RBC (4.30-5.90) m/uL Hgb (13.0-17.5) gm/dL Hct (39.0-53.0) % MCV (80.0-100.0) fL Macrocytosis ABG pH (7.35-7.45) ABG pCO2 (35-45) mmHg ABG pO2 (83-108) mmHg ABG O2 Saturation (94-97) % Chloride (98-107) mmol/L Carbon Dioxide (22-30) mmol/L BUN (9-20) mg/dL Creatinine (0.66-1.25) mg/dL Glucose (74-99) mg/dL POC Glucose (mg/dL) 198 H (70-110) mg/dL Calcium (8.4-10.2) mg/dL Microbiology - Last 24 Hours (Table) 09/28/23 08:30 Acid Fast Bacilli Smear - Preliminary Bronchoalviolar Lavage - Right 09/28/23 08:30 Gram Stain - Final Bronchoalviolar Lavage - Right Bronchial Washings Culture - Final Assessment and Plan (1) Allergy to multiple antibiotics Current Visit: Yes Status: Acute Code(s): Z88.1 - ALLERGY STATUS TO OTHER ANTIBIOTIC AGENTS SNOMED Code(s): 075077039 (2) Leukocytosis Current Visit: Yes Status: Acute Code(s): D72.829 - ELEVATED WHITE BLOOD CELL COUNT, UNSPECIFIED SNOMED Code(s): 384181966 (3) Leg wound, right Current Visit: Yes Status: Acute Code(s): S81.801A - UNSPECIFIED OPEN WOUND, RIGHT LOWER LEG, INITIAL ENCOUNTER SNOMED Code(s): 47511442207518558 Plan: 1patient presented to hospital with mental status changes possibly fentanyl overdose patches has been removed patient also have chronic nonhealing wound to the right leg which has been there for many years with exposed hardware and likely concerning for osteomyelitis patient wound has increased in size compared to 2-year ago when I saw the patient last with the hardware exposed and highly suspicious for possible osteomyelitis . 2local wound culture currently growing MRSA and bacteroids patient did have elevated sed rate of 85 3patient with multiple antibiotic ALLERGIES that would limit the number of antibiotic safe to use. 4patient benefit from removal of the infected hardware in the wound bed in order to completely heal this infection 5patient did have resolution of his fever white count normalized, 6/patient to continue with the daptomycin and Flagyl and continue supportive care Family the bedside questions were answered Dictation was produced using [employer] dictation software. please excuse any grammatical, word or spelling errors. Time with Patient: Less than 30
[2023-10-01 17:47] LABS: Glucose,Whole Blood 189 mg/dL (70-110)
[2023-10-01 23:46] LABS: Glucose,Whole Blood 181 mg/dL (70-110)
[2023-10-02 04:44] LABS: Basophils % (A) 0 %; Eosinophils # (A) 0.2 k/uL (0-0.7); Eosinophils % (A) 2 %; HCT 29.5 % (39.0-53.0); HGB 8.9 gm/dL (13.0-17.5); Hypochromasia Marked; Lymphocytes # (A) 0.9 k/uL (1.0-4.8); Lymphocytes % (A) 10 %; MCH 32.5 pg (25.0-35.0); MCHC 30.3 g/dL (31.0-37.0); Macrocytosis Marked; Mean Platelet Volume 9.5; Monocytes # (A) 0.7 k/uL (0-1.0); Monocytes % (A) 8 %; Neutrophils # (A) 7.1 k/uL (1.3-7.7); Neutrophils % (A) 78 %; Platelet Count 173 k/uL (150-450); RBC 2.75 m/uL (4.30-5.90); WBC 9.1 k/uL (3.8-10.6)
[2023-10-02 04:55] LABS: MCV 107.1 fL (80.0-100.0)
[2023-10-02 05:30] LABS: Glucose,Whole Blood 176 mg/dL (70-110)
[2023-10-02 05:50] LABS: African American GFR (CKD) >90 (>60 ml/min/1.73 sqM); Anion Gap 6 mmol/L; Blood Urea Nitrogen 25 mg/dL (9-20); Calcium 7.5 mg/dL (8.4-10.2); Carbon Dioxide 21 mmol/L (22-30); Chloride 117 mmol/L (98-107); Glucose 169 mg/dL (74-99); Magnesium 1.6 mg/dL (1.6-2.3); Non-African American GFR(CKD) >90 (>60 ml/min/1.73 sqM); Sodium 144 mmol/L (137-145)
[2023-10-02 06:26] LABS: ABG Base Excess -1.9 mmol/L; ABG HCO3 24 mmol/L (21-25); ABG PCO2 48 mmHg (35-45); ABG PH 7.32 (7.35-7.45); ABG PO2 112 mmHg (83-108); ABG TCO2 26 mmol/L (19-24); Allen Test Performed? Yes
[2023-10-02] MEDS: MAGNESIUM SULFATE-D5W PMX 1 GM in DEXTROSE/WATER 1 100ML.BAG IVPB SCH (06:31)
[2023-10-02] MEDS: METOPROLOL TARTRATE 12.5 MG TAB PO SCH (08:58)
--- NOTE | 2023-10-02 09:19 | XR ---
EXAMINATION TYPE: XR chest 1V portable DATE OF EXAM: 10/02/2023 Comparison: 10/01/2023 Clinical History: 73-year-old male mechanical ventilation Findings: ET and NG tubes satisfactory. Median sternotomy wires post-CABG clips. Healed left-sided rib fracture deformities. Heart is mildly enlarged. Diffuse interstitial and patchy opacities persist. Possible t race left effusion. Impression: Mild cardiomegaly with diffuse interstitial and patchy opacities without significant change. Possible trace left effusion.
--- NOTE | 2023-10-02 09:27 | P.PN ---
Subjective Progress Note Date: 10/02/23 The patient is a 73-year-old male who was admitted to the hospital with acute hypoxic respiratory failure. Echocardiogram revealed mildly reduced LV function at 40% with anterior wall hypokinesis as well as moderate to severe aortic stenosis. Cardiology was consulted for aortic stenosis and plan of care. Yesterday the patient was started on oral beta-noe for cardiomyopathy. Patient is currently sedated and intubated. He remains on low-dose vasopressors. Pulmonary medicine predicts poor prognosis in regards to weaning from ventilator and there will be discussion regarding tracheostomy and PEG tube placement. GENERAL: Well-appearing, well-nourished and in no acute distress. Sedated on ventilator NECK: Supple without JVD or thyromegaly. LUNGS: Breath sounds coarse to auscultation bilaterally. Respiration equal and unlabored. HEART: Regular rate and rhythm. Systolic ejection murmur. Rubs or gallops. S1 and S2 heard. EXTREMITIES: Normal range of motion, mild edema. No clubbing or cyanosis. Peripheral pulses intact and strong. TELEMETRY: Sinus rhythm overnight LABS: WBC 9.1, hemoglobin 8.9, hematocrit 29.5, platelet 173, sodium 144, potassium 4.0, BUN 25, creatinine 0.54, magnesium 1.6 IMPRESSION: Acute hypoxic respiratory failure Moderate to severe aortic stenosis Cardiomyopathy, EF 40 to 45% Hypertension Diabetes Dyslipidemia History of CAD with prior CABG PLAN: Metoprolol tartrate 12.5 mg daily for cardiomyopathy Continue supportive treatment No further recommendations from the cardiac standpoint I am dictating on behalf of Dr Rhett Florian's history/physical and assessment/plan. Objective - Vital Signs Vital signs: Vital Signs Temp 98.6 F 10/02/23 08:00 Pulse 110 H 10/02/23 09:00 Resp 24 10/02/23 09:00 BP 142/66 10/02/23 08:45 Pulse Ox 96 10/02/23 09:00 FiO2 35 10/02/23 08:00 Intake & Output 10/01/23 10/02/23 10/02/23 18:59 06:59 18:59 Intake Total 2074.160 1979.071 717.454 Output Total 2135 2285 370 Balance -60.840 -305.929 347.454 Weight 90.7 kg Intake: IV 822 772 368 0.9 presure bags 72 72 18 DAPTOmycin 450 mg In 50 Sodium Chloride 0.9% 50 ml @ 100 mls/hr IVPB Q24H [facility] Rx#:[id number] Magnesium Sulfate-D5w Pmx 100 1 gm In Dextrose/Water 1 100ml.bag @ 100 mls/hr IVPB ONCE ONE Rx#: [id number] Sodium Chloride 0.9% 1, 500 600 150 000 ml @ 50 mls/hr IV . Q20H [facility] Rx#:[id number] metroNIDAZOLE-NS PMX 500 200 100 100 mg In Saline 1 100ml.bag @ 100 mls/hr IVPB Q8HR [facility] Rx#:[id number] Intake, IV Titration 598.160 583.071 193.454 Amount Magnesium Sulfate-D5w Pmx 100 1 gm In Dextrose/Water 1 100ml.bag @ 100 mls/hr IVPB Q1H [facility] Rx#: [id number] Norepinephrine 8 mg In 371.586 251.589 26.383 Sodium Chloride 0.9% 250 ml @ 0.18 MCG/KG/MIN 31. 765 mls/hr IV .Q8H8M [facility] Rx#:[id number] Sodium Chloride 0.9% 1, 110 20 000 ml @ 10 mls/hr IV . Q24H [facility] Rx#:[id number] fentaNYL (PF). 1,000 mcg 60.572 In Sodium Chloride 0.9% 80 ml @ 0.5 MCG/KG/HR 4. 56 mls/hr IV .[id number] [facility] Rx#:[id number] propofoL 1,000 mg In 116.574 250.910 67.071 Empty Bag 1 bag @ 15 MCG/ KG/MIN 7.434 mls/hr IV . [id number] [facility] Rx#:[id number] Tube Feeding 624 624 156 Other 30 Output: Urine 2135 2285 370 Other: Voiding Method Indwelling Catheter Indwelling Catheter ABP, PAP, CO, CI - Last Documented Arterial Blood Pressure 113/39 - Labs CBC & Chem 7: 10/02/23 04:30 10/02/23 04:30 Labs: Abnormal Lab Results - Last 24 Hours (Table) 10/01/23 10/01/23 10/01/23 Range/Units 12:18 17:46 23:44 RBC (4.30-5.90) m/uL Hgb (13.0-17.5) gm/dL Hct (39.0-53.0) % MCV (80.0-100.0) fL MCHC (31.0-37.0) g/dL Lymphocytes # (1.0-4.8) k/uL Macrocytosis ABG pH (7.35-7.45) ABG pCO2 (35-45) mmHg ABG pO2 (83-108) mmHg ABG Total CO2 (19-24) mmol/L ABG O2 Saturation (94-97) % Chloride (98-107) mmol/L Carbon Dioxide (22-30) mmol/L BUN (9-20) mg/dL Creatinine (0.66-1.25) mg/dL Glucose (74-99) mg/dL POC Glucose (mg/dL) 198 H 189 H 181 H (70-110) mg/dL Calcium (8.4-10.2) mg/dL 10/02/23 10/02/23 10/02/23 Range/Units 04:30 04:30 05:29 RBC 2.75 L (4.30-5.90) m/uL Hgb 8.9 L (13.0-17.5) gm/dL Hct 29.5 L (39.0-53.0) % MCV 107.1 H (80.0-100.0) fL MCHC 30.3 L (31.0-37.0) g/dL Lymphocytes # 0.9 L (1.0-4.8) k/uL Macrocytosis Marked A ABG pH (7.35-7.45) ABG pCO2 (35-45) mmHg ABG pO2 (83-108) mmHg ABG Total CO2 (19-24) mmol/L ABG O2 Saturation (94-97) % Chloride 117 H (98-107) mmol/L Carbon Dioxide 21 L (22-30) mmol/L BUN 25 H (9-20) mg/dL Creatinine 0.54 L (0.66-1.25) mg/dL Glucose 169 H (74-99) mg/dL POC Glucose (mg/dL) 176 H (70-110) mg/dL Calcium 7.5 L (8.4-10.2) mg/dL 10/02/23 Range/Units 06:22 RBC (4.30-5.90) m/uL Hgb (13.0-17.5) gm/dL Hct (39.0-53.0) % MCV (80.0-100.0) fL MCHC (31.0-37.0) g/dL Lymphocytes # (1.0-4.8) k/uL Macrocytosis ABG pH 7.32 L (7.35-7.45) ABG pCO2 48 H (35-45) mmHg ABG pO2 112 H (83-108) mmHg ABG Total CO2 26 H (19-24) mmol/L ABG O2 Saturation 99.0 H (94-97) % Chloride (98-107) mmol/L Carbon Dioxide (22-30) mmol/L BUN (9-20) mg/dL Creatinine (0.66-1.25) mg/dL Glucose (74-99) mg/dL POC Glucose (mg/dL) (70-110) mg/dL Calcium (8.4-10.2) mg/dL Microbiology - Last 24 Hours (Table) 09/26/23 11:30 Blood Culture - Final Blood 09/26/23 11:47 Blood Culture - Final Blood 09/28/23 08:30 Acid Fast Bacilli Smear - Preliminary Bronchoalviolar Lavage - Right 09/28/23 08:30 Gram Stain - Final Bronchoalviolar Lavage - Right Bronchial Washings Culture - Final
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
[2023-10-02 11:58] LABS: Glucose,Whole Blood 233 mg/dL (70-110)
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
[2023-10-02] MEDS: HYDROmorphone 1 MG/ML 1 ML SYRINGE IVP PRN (16:43)
[2023-10-02 18:01] LABS: Glucose,Whole Blood 189 mg/dL (70-110)
[2023-10-02 23:41] LABS: Glucose,Whole Blood 167 mg/dL (70-110)
[2023-10-03 00:21] LABS: Glucose,Whole Blood 188 mg/dL (70-110)
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
[2023-10-03 06:09] LABS: Basophils % (A) 0 %; Eosinophils # (A) 0.3 k/uL (0-0.7); Eosinophils % (A) 3 %; HCT 29.9 % (39.0-53.0); HGB 9.1 gm/dL (13.0-17.5); Hypochromasia Marked; Lymphocytes # (A) 1.2 k/uL (1.0-4.8); Lymphocytes % (A) 12 %; MCH 33.1 pg (25.0-35.0); MCHC 30.5 g/dL (31.0-37.0); MCV 108.5 fL (80.0-100.0); Macrocytosis Marked; Mean Platelet Volume 9.3; Monocytes # (A) 0.8 k/uL (0-1.0); Monocytes % (A) 8 %; Neutrophils # (A) 7.8 k/uL (1.3-7.7); Neutrophils % (A) 75 %; Platelet Count 211 k/uL (150-450); RBC 2.76 m/uL (4.30-5.90); RDW 15.1 % (11.5-15.5); WBC 10.4 k/uL (3.8-10.6)
[2023-10-03 06:12] LABS: ABG Base Excess 1.4 mmol/L; ABG HCO3 27 mmol/L (21-25); ABG Oxygen Saturation 98.5 % (94-97); ABG PCO2 44 mmHg (35-45); ABG PH 7.39 (7.35-7.45); ABG PO2 97 mmHg (83-108); ABG TCO2 28 mmol/L (19-24); Allen Test Performed? Yes
[2023-10-03 06:25] LABS: Glucose,Whole Blood 166 mg/dL (70-110)
[2023-10-03 07:04] LABS: African American GFR (CKD) >90 (>60 ml/min/1.73 sqM); Anion Gap 5 mmol/L; Blood Urea Nitrogen 26 mg/dL (9-20); Calcium 7.7 mg/dL (8.4-10.2); Carbon Dioxide 24 mmol/L (22-30); Chloride 114 mmol/L (98-107); Glucose 157 mg/dL (74-99); Magnesium 1.6 mg/dL (1.6-2.3); Non-African American GFR(CKD) >90 (>60 ml/min/1.73 sqM); Potassium 3.8 mmol/L (3.5-5.1); Sodium 143 mmol/L (137-145)
[2023-10-03] MEDS ORDERED: Magnesium Replacement Protocol 1 EACH MISC MISCELLANE PRN (07:33)
[2023-10-03] MEDS: MAGNESIUM SULFATE-D5W PMX 1 GM in DEXTROSE/WATER 1 100ML.BAG IVPB SCH (08:02)
--- NOTE | 2023-10-03 09:00 | XR ---
EXAMINATION TYPE: XR chest 1V portable DATE OF EXAM: 10/03/2023 Comparison: 10/02/2023 Clinical History: 73-year-old male mechanical ventilation Findings: ET and NG tubes are satisfactory. Median sternotomy wires. Right IJ CVC tip in the lower right atrium . Heart mildly enlarged. Diffuse interstitial and patchy opacities persist, overall similar. Possible small left effusion also persists. Impression: Ongoing CHF with interstitial and patchy pulmonary edema. Possible small left pleural effusion.
[2023-10-03 11:53] LABS: Glucose,Whole Blood 198 mg/dL (70-110)
--- NOTE | 2023-10-03 11:57 | P.PN ---
Subjective Progress Note Date: 10/03/23 Principal diagnosis: Reason for follow-up is right leg wound and osteomyelitis The patient is a 73-year-old male with a past medical history significant for diabetes mellitus hypertension hyperlipidemia coronary disease prostate disorder, patient did have a history of previous injury to the right leg requiring operative repair with hardware and has been dealing with a nonhealing wound to the right anterior leg for few years presented to hospital mental status changes possible overdose on fentanyl patch with a worsening wound to the right leg prompting this consultation. On today's evaluation that is 10/03/2023, the patient continues to be afebrile, the patient is on ventilator FiO2 is currently stable at 30%, patient is currently off of sedation preparing for possible extubation no significant purulent secretions through the ET or any change reported by the nursing staff. Patient white count normal at 10.4, creatinine 0.51 blood culture has been negative Objective - Vital Signs Vital signs: Vital Signs Temp 98.2 F 10/03/23 08:00 Pulse 93 10/03/23 11:00 Resp 29 H 10/03/23 11:00 BP 129/65 10/03/23 11:00 Pulse Ox 93 L 10/03/23 11:00 FiO2 30 10/03/23 11:54 Intake & Output 10/02/23 10/03/23 10/03/23 18:59 06:59 18:59 Intake Total 2231.801 1770.706 950.271 Output Total 1985 2375 1135 Balance 246.801 -604.294 -184.729 Weight 93.4 kg Intake: IV 1072 772 386 0.9 presure bags 72 72 36 DAPTOmycin 450 mg In 100 Sodium Chloride 0.9% 50 ml @ 100 mls/hr IVPB Q24H [facility] Rx#:[id number] Magnesium Sulfate-D5w Pmx 100 1 gm In Dextrose/Water 1 100ml.bag @ 100 mls/hr IVPB ONCE ONE Rx#: [id number] Magnesium Sulfate-D5w Pmx 100 1 gm In Dextrose/Water 1 100ml.bag @ 100 mls/hr IVPB Q1H [facility] Rx#: [id number] Sodium Chloride 0.9% 1, 600 600 150 000 ml @ 50 mls/hr IV . Q20H [facility] Rx#:[id number] metroNIDAZOLE-NS PMX 500 200 100 100 mg In Saline 1 100ml.bag @ 100 mls/hr IVPB Q8HR [facility] Rx#:[id number] Intake, IV Titration 505.801 244.706 112.271 Amount Magnesium Sulfate-D5w Pmx 100 1 gm In Dextrose/Water 1 100ml.bag @ 100 mls/hr IVPB Q1H [facility] Rx#: [id number] Norepinephrine 8 mg In 181.676 144.706 11.499 Sodium Chloride 0.9% 250 ml @ 0.18 MCG/KG/MIN 31. 765 mls/hr IV .Q8H8M [facility] Rx#:[id number] fentaNYL (PF). 1,000 mcg 63.992 In Sodium Chloride 0.9% 80 ml @ 0.5 MCG/KG/HR 4. 56 mls/hr IV .[id number] [facility] Rx#:[id number] propofoL 1,000 mg In 160.133 100 100.772 Empty Bag 1 bag @ 15 MCG/ KG/MIN 7.434 mls/hr IV . [id number] [facility] Rx#:[id number] Oral 80 Tube Feeding 624 624 312 Other 30 130 60 Output: Urine 1985 2375 1135 Other: Voiding Method Indwelling Catheter Indwelling Catheter Indwelling Catheter ABP, PAP, CO, CI - Last Documented Arterial Blood Pressure 114/39 - Exam GENERAL DESCRIPTION: An elderly male intubated on the vent RESPIRATORY SYSTEM: Unlabored breathing , decreased breath sounds at bases HEART: S1 S2 regular rate and rhythm , ABDOMEN: Soft , no tenderness EXTREMITIES: Right leg wound is currently dressed - Labs CBC & Chem 7: 10/03/23 05:50 10/03/23 06:00 Labs: Abnormal Lab Results - Last 24 Hours (Table) 10/02/23 10/02/23 10/02/23 Range/Units 11:55 18:00 23:40 RBC (4.30-5.90) m/uL Hgb (13.0-17.5) gm/dL Hct (39.0-53.0) % MCV (80.0-100.0) fL MCHC (31.0-37.0) g/dL Neutrophils # (1.3-7.7) k/uL Macrocytosis ABG HCO3 (21-25) mmol/L ABG Total CO2 (19-24) mmol/L ABG O2 Saturation (94-97) % Chloride (98-107) mmol/L BUN (9-20) mg/dL Creatinine (0.66-1.25) mg/dL Glucose (74-99) mg/dL POC Glucose (mg/dL) 233 H 189 H 167 H (70-110) mg/dL Calcium (8.4-10.2) mg/dL 10/03/23 10/03/23 10/03/23 Range/Units 00:17 05:50 06:00 RBC 2.76 L (4.30-5.90) m/uL Hgb 9.1 L (13.0-17.5) gm/dL Hct 29.9 L (39.0-53.0) % MCV 108.5 H (80.0-100.0) fL MCHC 30.5 L (31.0-37.0) g/dL Neutrophils # 7.8 H (1.3-7.7) k/uL Macrocytosis Marked A ABG HCO3 (21-25) mmol/L ABG Total CO2 (19-24) mmol/L ABG O2 Saturation (94-97) % Chloride 114 H (98-107) mmol/L BUN 26 H (9-20) mg/dL Creatinine 0.51 L (0.66-1.25) mg/dL Glucose 157 H (74-99) mg/dL POC Glucose (mg/dL) 188 H (70-110) mg/dL Calcium 7.7 L (8.4-10.2) mg/dL 10/03/23 10/03/23 10/03/23 Range/Units 06:09 06:23 11:52 RBC (4.30-5.90) m/uL Hgb (13.0-17.5) gm/dL Hct (39.0-53.0) % MCV (80.0-100.0) fL MCHC (31.0-37.0) g/dL Neutrophils # (1.3-7.7) k/uL Macrocytosis ABG HCO3 27 H (21-25) mmol/L ABG Total CO2 28 H (19-24) mmol/L ABG O2 Saturation 98.5 H (94-97) % Chloride (98-107) mmol/L BUN (9-20) mg/dL Creatinine (0.66-1.25) mg/dL Glucose (74-99) mg/dL POC Glucose (mg/dL) 166 H 198 H (70-110) mg/dL Calcium (8.4-10.2) mg/dL Assessment and Plan (1) Allergy to multiple antibiotics Current Visit: Yes Status: Acute Code(s): Z88.1 - ALLERGY STATUS TO OTHER ANTIBIOTIC AGENTS SNOMED Code(s): 940203463 (2) Leukocytosis Current Visit: Yes Status: Acute Code(s): D72.829 - ELEVATED WHITE BLOOD CELL COUNT, UNSPECIFIED SNOMED Code(s): 371863305 (3) Leg wound, right Current Visit: Yes Status: Acute Code(s): S81.801A - UNSPECIFIED OPEN WOUND, RIGHT LOWER LEG, INITIAL ENCOUNTER SNOMED Code(s): 31562295957876450 Plan: 1patient presented to hospital with mental status changes possibly fentanyl overdose patches has been removed patient also have chronic nonhealing wound to the right leg which has been there for many years with exposed hardware and likely concerning for osteomyelitis patient wound has increased in size compared to 2-year ago when I saw the patient last with the hardware exposed and highly suspicious for possible osteomyelitis . 2local wound culture currently growing MRSA and bacteroids patient did have elevated sed rate of 85 3patient with multiple antibiotic ALLERGIES that would limit the number of antibiotic safe to use. 4patient benefit from removal of the infected hardware in the wound bed in order to completely heal this infection x-rays were reviewed with the family as well as with the radiologist and more likely the upper screw that is visible will discuss with orthopedics see if they can remove that screw and help heal this infection if not patient may need to be referred to orthopedics at tertiary care 5patient did have resolution of his fever white count normalized, 6-patient will continue with the daptomycin and Flagyl and monitor clinical c ourse closely Daughter the bedside questions were answered Dictation was produced using [employer] dictation software. please excuse any grammatical, word or spelling errors. Time with Patient: Less than 30
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
[2023-10-03 17:33] LABS: Glucose,Whole Blood 216 mg/dL (70-110)
[2023-10-03] MEDS ORDERED: LACTULOSE 20 GM/30 ML CUP PO PRN (18:01)
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
[2023-10-03] MEDS: SENNOSIDES 8.6 MG TAB PO SCH (20:45)
[2023-10-03 23:23] LABS: Glucose,Whole Blood 194 mg/dL (70-110)
[2023-10-04 05:03] LABS: Basophils # (A) 0.1 k/uL (0-0.2); Basophils % (A) 0 %; Eosinophils # (A) 0.2 k/uL (0-0.7); Eosinophils % (A) 1 %; HCT 29.6 % (39.0-53.0); HGB 9.1 gm/dL (13.0-17.5); Hypochromasia Moderate; Lymphocytes # (A) 1.3 k/uL (1.0-4.8); Lymphocytes % (A) 9 %; MCH 32.8 pg (25.0-35.0); MCHC 30.9 g/dL (31.0-37.0); MCV 106.3 fL (80.0-100.0); Macrocytosis Moderate; Mean Platelet Volume 9.4; Monocytes # (A) 1.3 k/uL (0-1.0); Monocytes % (A) 9 %; Neutrophils # (A) 11.5 k/uL (1.3-7.7); Neutrophils % (A) 79 %; Platelet Count 240 k/uL (150-450); RBC 2.78 m/uL (4.30-5.90); RDW 15.5 % (11.5-15.5); WBC 14.5 k/uL (3.8-10.6)
[2023-10-04 05:18] LABS: African American GFR (CKD) >90 (>60 ml/min/1.73 sqM); Anion Gap 4 mmol/L; Blood Urea Nitrogen 31 mg/dL (9-20); Calcium 7.6 mg/dL (8.4-10.2); Carbon Dioxide 24 mmol/L (22-30); Chloride 113 mmol/L (98-107); Glucose 213 mg/dL (74-99); Magnesium 1.7 mg/dL (1.6-2.3); Non-African American GFR(CKD) >90 (>60 ml/min/1.73 sqM); Potassium 3.9 mmol/L (3.5-5.1); Sodium 141 mmol/L (137-145)
[2023-10-04] MEDS: POTASSIUM BICARBONATE/CIT AC 20 MEQ TABLET.EFF NG-TUBE SCH (05:36)
[2023-10-04] MEDS: MAGNESIUM SULFATE-D5W PMX 1 GM in DEXTROSE/WATER 1 100ML.BAG IVPB ONE (05:36)
[2023-10-04 05:49] LABS: Glucose,Whole Blood 222 mg/dL (70-110)
[2023-10-04 05:58] LABS: ABG Base Excess 1.8 mmol/L; ABG HCO3 27 mmol/L (21-25); ABG Oxygen Saturation 98.8 % (94-97); ABG PCO2 45 mmHg (35-45); ABG PH 7.39 (7.35-7.45); ABG PO2 107 mmHg (83-108); ABG TCO2 29 mmol/L (19-24)
--- NOTE | 2023-10-04 08:37 | XR ---
EXAMINATION TYPE: XR chest 1V portable DATE OF EXAM: 10/04/2023 Comparison: 10/03/2023 Clinical History: 73-year-old male mechanical ventilation Findings: ET and NG tubes are satisfactory. Median sternotomy wires with post-CABG clips. Heart remains enlarge d with diffuse patchy and interstitial opacities. Suspect small effusions. No significant change. Rig ht IJ CVC tip in the lower right atrium. Impression: Ongoing diffuse bilateral patchy pulmonary edema with small effusions.
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
[2023-10-04 11:26] LABS: Glucose,Whole Blood 240 mg/dL (70-110)
[2023-10-04 11:28] LABS: ABG Base Excess 1.7 mmol/L; ABG HCO3 28 mmol/L (21-25); ABG Oxygen Saturation 96.7 % (94-97); ABG PCO2 49 mmHg (35-45); ABG PH 7.36 (7.35-7.45); ABG PO2 83 mmHg (83-108); ABG TCO2 29 mmol/L (19-24); Allen Test Performed? Yes
--- NOTE | 2023-10-04 14:35 | P.PN ---
Subjective Progress Note Date: 10/04/23 Principal diagnosis: Reason for follow-up is right leg wound and osteomyelitis The patient is a 73-year-old male with a past medical history significant for diabetes mellitus hypertension hyperlipidemia coronary disease prostate disorder, patient did have a history of previous injury to the right leg requiring operative repair with hardware and has been dealing with a nonhealing wound to the right anterior leg for few years presented to hospital mental status changes possible overdose on fentanyl patch with a worsening wound to the right leg prompting this consultation. On today's evaluation that is 10/04/2023, Patient did spike a fever of 101.5 F yesterday afternoon the patient is afebrile this morning patient has been extubated and is currently on 4 L nasal cannula oxygen patient is lethargic unable to provide any history of the pressor support no vomiting or diarrhea has been reported. Patient white count is 14.5 creatinine 0.56 Objective - Vital Signs Vital signs: Vital Signs Temp 98.4 F 10/04/23 12:00 Pulse 93 10/04/23 14:15 Resp 18 10/04/23 14:15 BP 136/69 10/04/23 14:15 Pulse Ox 99 10/04/23 14:15 FiO2 30 10/04/23 11:57 Intake & Output 10/03/23 10/04/23 10/04/23 18:59 06:59 18:59 Intake Total 3826.588 6357.593 1349.445 Output Total 1795 1505 1560 Balance 114.903 120.593 -210.555 Weight 93 kg 93 kg Intake: IV 922 672 554 0.9 presure bags 72 72 54 DAPTOmycin 450 mg In 50 Sodium Chloride 0.9% 50 ml @ 100 mls/hr IVPB Q24H MEG Rx#:[id number] Magnesium Sulfate-D5w Pmx 200 1 gm In Dextrose/Water 1 100ml.bag @ 100 mls/hr IVPB Q1H MEG Rx#: [id number] Sodium Chloride 0.9% 1, 500 600 400 000 ml @ 50 mls/hr IV . Q20H MEG Rx#:[id number] metroNIDAZOLE-NS PMX 500 100 100 mg In Saline 1 100ml.bag @ 100 mls/hr IVPB Q8HR MEG Rx#:[id number] Intake, IV Titration 193.903 239.593 153.445 Amount Norepinephrine 8 mg In 31.705 155.589 65.354 Sodium Chloride 0.9% 250 ml @ 0.18 MCG/KG/MIN 31. 765 mls/hr IV .Q8H8M MEG Rx#:[id number] propofoL 1,000 mg In 162.198 84.004 88.091 Empty Bag 1 bag @ 15 MCG/ KG/MIN 7.434 mls/hr IV . [id number] MEG Rx#:[id number] Oral 80 300 Tube Feeding 624 624 312 Other 90 90 30 Output: Urine 1795 1505 1560 Other: Voiding Method Indwelling Catheter Indwelling Catheter Indwelling Catheter ABP, PAP, CO, CI - Last Documented Arterial Blood Pressure 134/51 - Exam GENERAL DESCRIPTION: An elderly male intubated on the vent RESPIRATORY SYSTEM: Unlabored breathing , decreased breath sounds at bases HEART: S1 S2 regular rate and rhythm , ABDOMEN: Soft , no tenderness EXTREMITIES: Right leg wound is currently dressed - Labs CBC & Chem 7: 10/04/23 04:47 10/04/23 04:47 Labs: Abnormal Lab Results - Last 24 Hours (Table) 10/03/23 10/03/23 10/04/23 Range/Units 17:21 23:21 04:47 WBC 14.5 H (3.8-10.6) k/uL RBC 2.78 L (4.30-5.90) m/uL Hgb 9.1 L (13.0-17.5) gm/dL Hct 29.6 L (39.0-53.0) % MCV 106.3 H (80.0-100.0) fL MCHC 30.9 L (31.0-37.0) g/dL Neutrophils # 11.5 H (1.3-7.7) k/uL Monocytes # 1.3 H (0-1.0) k/uL ABG pCO2 (35-45) mmHg ABG HCO3 (21-25) mmol/L ABG Total CO2 (19-24) mmol/L ABG O2 Saturation (94-97) % Chloride (98-107) mmol/L BUN (9-20) mg/dL Creatinine (0.66-1.25) mg/dL Glucose (74-99) mg/dL POC Glucose (mg/dL) 216 H 194 H (70-110) mg/dL Calcium (8.4-10.2) mg/dL 10/04/23 10/04/23 10/04/23 Range/Units 04:47 05:30 05:48 WBC (3.8-10.6) k/uL RBC (4.30-5.90) m/uL Hgb (13.0-17.5) gm/dL Hct (39.0-53.0) % MCV (80.0-100.0) fL MCHC (31.0-37.0) g/dL Neutrophils # (1.3-7.7) k/uL Monocytes # (0-1.0) k/uL ABG pCO2 (35-45) mmHg ABG HCO3 27 H (21-25) mmol/L ABG Total CO2 29 H (19-24) mmol/L ABG O2 Saturation 98.8 H (94-97) % Chloride 113 H (98-107) mmol/L BUN 31 H (9-20) mg/dL Creatinine 0.56 L (0.66-1.25) mg/dL Glucose 213 H (74-99) mg/dL POC Glucose (mg/dL) 222 H (70-110) mg/dL Calcium 7.6 L (8.4-10.2) mg/dL 10/04/23 10/04/23 Range/Units 11:23 11:24 WBC (3.8-10.6) k/uL RBC (4.30-5.90) m/uL Hgb (13.0-17.5) gm/dL Hct (39.0-53.0) % MCV (80.0-100.0) fL MCHC (31.0-37.0) g/dL Neutrophils # (1.3-7.7) k/uL Monocytes # (0-1.0) k/uL ABG pCO2 49 H (35-45) mmHg ABG HCO3 28 H (21-25) mmol/L ABG Total CO2 29 H (19-24) mmol/L ABG O2 Saturation (94-97) % Chloride (98-107) mmol/L BUN (9-20) mg/dL Creatinine (0.66-1.25) mg/dL Glucose (74-99) mg/dL POC Glucose (mg/dL) 240 H (70-110) mg/dL Calcium (8.4-10.2) mg/dL Assessment and Plan (1) Allergy to multiple antibiotics Current Visit: Yes Status: Acute Code(s): Z88.1 - ALLERGY STATUS TO OTHER ANTIBIOTIC AGENTS SNOMED Code(s): 879705110 (2) Leukocytosis Current Visit: Yes Status: Acute Code(s): D72.829 - ELEVATED WHITE BLOOD CELL COUNT, UNSPECIFIED SNOMED Code(s): 439402962 (3) Leg wound, right Current Visit: Yes Status: Acute Code(s): S81.801A - UNSPECIFIED OPEN WOUND, RIGHT LOWER LEG, INITIAL ENCOUNTER SNOMED Code(s): 27675132962350848 Plan: 1patient presented to hospital with mental status changes possibly fentanyl overdose patches has been removed patient also have chronic nonhealing wound to the right leg which has been there for many years with exposed hardware and likely concerning for osteomyelitis patient wound has increased in size compared to 2-year ago when I saw the patient last with the hardware exposed and highly suspicious for possible osteomyelitis . 2local wound culture currently growing MRSA and bacteroids patient did have elevated sed rate of 85 3patient with multiple antibiotic ALLERGIES that would limit the number of antibiotic safe to use. 4patient benefit from removal of the infected hardware in the wound bed in order to completely heal this infection x-rays were reviewed with the family as well as with the radiologist and more likely the upper screw that is visible will discuss with orthopedics see if they can remove that screw and help heal this infection if not patient may need to be referred to orthopedics at tertiary care 5patient did have a new fever yesterday afebrile this morning white count is slightly up continue to monitor closely, will continue with the daptomycin and Flagyl and monitor clinical course closely Dictation was produced using [employer] dictation software. please excuse any grammatical, word or spelling errors. Time with Patient: Less than 30
[2023-10-04] MEDS: SCOPOLAMINE 1 MG/72 HR PATCH TRANSDERM SCH (14:40)
[2023-10-04 17:59] LABS: Glucose,Whole Blood 151 mg/dL (70-110)
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
[2023-10-04] MEDS ORDERED: IPRATROPIUM-ALBUTEROL 3 ML NEB INHALATION PRN (23:45)
[2023-10-05 00:20] LABS: Glucose,Whole Blood 140 mg/dL (70-110)
[2023-10-05 05:24] LABS: HCT 28.9 % (39.0-53.0); Hypochromasia Marked; MCH 32.7 pg (25.0-35.0); MCHC 31.1 g/dL (31.0-37.0); MCV 105.2 fL (80.0-100.0); Macrocytosis Moderate; Mean Platelet Volume 8.2; Platelet Count 270 k/uL (150-450); RBC 2.74 m/uL (4.30-5.90); RDW 15.1 % (11.5-15.5); WBC 11.4 k/uL (3.8-10.6)
[2023-10-05 05:28] LABS: African American GFR (CKD) >90 (>60 ml/min/1.73 sqM); Anion Gap 5 mmol/L; Blood Urea Nitrogen 28 mg/dL (9-20); Calcium 7.9 mg/dL (8.4-10.2); Carbon Dioxide 27 mmol/L (22-30); Chloride 111 mmol/L (98-107); Glucose 139 mg/dL (74-99); Magnesium 1.5 mg/dL (1.6-2.3); Non-African American GFR(CKD) >90 (>60 ml/min/1.73 sqM); Potassium 3.6 mmol/L (3.5-5.1); Sodium 143 mmol/L (137-145)
[2023-10-05] MEDS ORDERED: Potassium Replacement Protocol 1 EACH MISC MISCELLANE PRN (05:31)
[2023-10-05] MEDS: POTASSIUM CHLORIDE 10 MEQ in WATER FOR INJECTION 1 100ML.BAG IVPB SCH (06:08)
[2023-10-05 06:22] LABS: Glucose,Whole Blood 134 mg/dL (70-110)
[2023-10-05] MEDS: IPRATROPIUM-ALBUTEROL 3 ML NEB INHALATION SCH (09:15)
[2023-10-05] MEDS: MAGNESIUM SULFATE-D5W PMX 1 GM in DEXTROSE/WATER 1 100ML.BAG IVPB SCH (10:04)
[2023-10-05] MEDS: PANTOPRAZOLE 40 MG/10 ML VIAL IVP SCH (11:53)
[2023-10-05 12:01] LABS: Glucose,Whole Blood 179 mg/dL (70-110)
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
[2023-10-05] MEDS: POTASSIUM BICARBONATE/CIT AC 20 MEQ TABLET.EFF NG-TUBE SCH (12:58)
--- NOTE | 2023-10-05 15:27 | P.PN ---
Subjective Progress Note Date: 10/05/23 Principal diagnosis: Reason for follow-up is right leg wound and osteomyelitis The patient is a 73-year-old male with a past medical history significant for diabetes mellitus hypertension hyperlipidemia coronary disease prostate disorder, patient did have a history of previous injury to the right leg requiring operative repair with hardware and has been dealing with a nonhealing wound to the right anterior leg for few years presented to hospital mental status changes possible overdose on fentanyl patch with a worsening wound to the right leg prompting this consultation. On today's evaluation that is 10/05/2023, patient has been afebrile, patient is breathing comfortably and is currently on 2 L nasal cannula oxygen, patient is slightly lethargic and not good historian no vomiting or diarrhea reported by the nursing staff. Patient white count is 11.4, creatinine 0.52 Objective - Vital Signs Vital signs: Vital Signs Temp 99.1 F 10/05/23 12:00 Pulse 86 10/05/23 13:00 Resp 21 10/05/23 13:00 BP 116/56 10/05/23 13:00 Pulse Ox 95 10/05/23 13:00 FiO2 30 10/04/23 11:57 Intake & Output 10/04/23 10/05/23 10/05/23 18:59 06:59 18:59 Intake Total 1754.564 616 666 Output Total 2480 1725 3105 Balance -725.463 -0663 -9417 Weight 93 kg 93 kg Intake: IV 834 616 366 0.9 presure bags 84 66 36 Sodium Chloride 0.9% 1, 650 550 230 000 ml @ 50 mls/hr IV . Q20H MEG Rx#:[id number] metroNIDAZOLE-NS PMX 500 100 100 mg In Saline 1 100ml.bag @ 100 mls/hr IVPB Q8HR MEG Rx#:[id number] Intake, IV Titration 278.564 300 Amount Magnesium Sulfate-D5w Pmx 200 1 gm In Dextrose/Water 1 100ml.bag @ 100 mls/hr IVPB Q1H MEG Rx#: [id number] Norepinephrine 8 mg In 190.473 Sodium Chloride 0.9% 250 ml @ 0.18 MCG/KG/MIN 31. 765 mls/hr IV .Q8H8M MEG Rx#:[id number] Potassium Chloride 10 meq 100 In Water For Injection 1 100ml.bag @ 100 mls/hr IVPB Q1H MEG Rx#: [id number] propofoL 1,000 mg In 88.091 Empty Bag 1 bag @ 15 MCG/ KG/MIN 7.434 mls/hr IV . [id number] MEG Rx#:[id number] Oral 300 Tube Feeding 312 Other 30 Output: Gastric Drainage 400 2400 Urine 2080 1725 705 Other: Voiding Method Indwelling Catheter Indwelling Catheter # Bowel Movements 0 ABP, PAP, CO, CI - Last Documented Arterial Blood Pressure 118/42 - Exam GENERAL DESCRIPTION: An elderly male lying in bed in no distress RESPIRATORY SYSTEM: Unlabored breathing , decreased breath sounds at bases HEART: S1 S2 regular rate and rhythm , ABDOMEN: Soft , no tenderness EXTREMITIES: Right leg wound is currently dressed no drainage on the dressing - Labs CBC & Chem 7: 10/05/23 04:55 10/05/23 11:59 Labs: Abnormal Lab Results - Last 24 Hours (Table) 10/04/23 10/05/23 10/05/23 Range/Units 17:58 00:18 04:55 WBC 11.4 H (3.8-10.6) k/uL RBC 2.74 L (4.30-5.90) m/uL Hgb 9.0 L (13.0-17.5) gm/dL Hct 28.9 L (39.0-53.0) % MCV 105.2 H (80.0-100.0) fL Chloride (98-107) mmol/L BUN (9-20) mg/dL Creatinine (0.66-1.25) mg/dL Glucose (74-99) mg/dL POC Glucose (mg/dL) 151 H 140 H (70-110) mg/dL Calcium (8.4-10.2) mg/dL Magnesium (1.6-2.3) mg/dL 10/05/23 10/05/23 10/05/23 Range/Units 04:55 06:20 11:59 WBC (3.8-10.6) k/uL RBC (4.30-5.90) m/uL Hgb (13.0-17.5) gm/dL Hct (39.0-53.0) % MCV (80.0-100.0) fL Chloride 111 H (98-107) mmol/L BUN 28 H (9-20) mg/dL Creatinine 0.52 L (0.66-1.25) mg/dL Glucose 139 H (74-99) mg/dL POC Glucose (mg/dL) 134 H 179 H (70-110) mg/dL Calcium 7.9 L (8.4-10.2) mg/dL Magnesium 1.5 L (1.6-2.3) mg/dL Microbiology - Last 24 Hours (Table) 10/03/23 17:20 Blood Culture - Preliminary Blood Assessment and Plan (1) Allergy to multiple antibiotics Current Visit: Yes Status: Acute Code(s): Z88.1 - ALLERGY STATUS TO OTHER ANTIBIOTIC AGENTS SNOMED Code(s): 308659729 (2) Leukocytosis Current Visit: Yes Status: Acute Code(s): D72.829 - ELEVATED WHITE BLOOD CELL COUNT, UNSPECIFIED SNOMED Code(s): 988519121 (3) Leg wound, right Current Visit: Yes Status: Acute Code(s): S81.801A - UNSPECIFIED OPEN WOUND, RIGHT LOWER LEG, INITIAL ENCOUNTER SNOMED Code(s): 11165029534747780 Plan: 1patient presented to hospital with mental status changes possibly fentanyl overdose patches has been removed patient also have chronic nonhealing wound to the right leg which has been there for many years with exposed hardware and likely concerning for osteomyelitis patient wound has increased in size compared to 2-year ago when I saw the patient last with the hardware exposed and highly suspicious for possible osteomyelitis . 2local wound culture currently growing MRSA and bacteroids patient did have elevated sed rate of 85 3patient with multiple antibiotic ALLERGIES that would limit the number of antibiotic safe to use. 4patient benefit from removal of the infected hardware in the wound bed in order to completely heal this infection x-rays were reviewed with the family as well as with the radiologist and more likely the upper screw that is visible will discuss with orthopedics see if they can remove that screw and help heal this infection if not patient may need to be referred to orthopedics at tertiary care 5patient did have a improvement in the fever pattern, will continue with the daptomycin and Flagyl and monitor clinical course closely Dictation was produced using [employer] dictation software. please excuse any grammatical, word or spelling errors. Time with Patient: Less than 30
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
[2023-10-06 00:20] LABS: Glucose,Whole Blood 159 mg/dL (70-110)
[2023-10-06 06:54] LABS: Glucose,Whole Blood 125 mg/dL (70-110)
[2023-10-06 11:34] LABS: Glucose,Whole Blood 153 mg/dL (70-110)
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
[2023-10-06 16:34] LABS: Glucose,Whole Blood 140 mg/dL (70-110)
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
[2023-10-06 23:17] LABS: Glucose,Whole Blood 163 mg/dL (70-110)
[2023-10-07 06:26] LABS: Glucose,Whole Blood 134 mg/dL (70-110)
--- NOTE | 2023-10-07 08:42 | P.PN ---
Progress Note - Text Progress Note Date: 10/07/23 Chart and PNotes reviewed. Pt is currently looking better and more stable. We will plan on possible ALONDRA on Sunday this week pending clearances and stability of pt.
[2023-10-07 09:39] LABS: Blood Urea Nitrogen 21.3 mg/dL (9.0-27.0); Carbon Dioxide 27.3 mmol/L (21.6-31.8); Chloride 105 mmol/L (96-109); Glucose 139 mg/dL (70-110); Magnesium 1.3 mg/dL (1.5-2.4); Potassium 3.5 mmol/L (3.5-5.5); Sodium 148 mmol/L (135-145)
[2023-10-07 09:47] LABS: Basophils # (A) 0.07 X 10*3/uL (0.00-0.10); Basophils % (A) 0.5 %; Eosinophils # (A) 0.11 X 10*3/uL (0.04-0.35); Eosinophils % (A) 0.8 %; HCT 32.5 % (39.6-50.0); HGB 10.5 g/dL (13.0-17.0); Lymphocytes # (A) 1.36 X 10*3/uL (0.90-5.00); Lymphocytes % (A) 9.9 %; MCH 32.5 pg (27.0-32.0); MCHC 32.3 g/dL (32.0-37.0); MCV 100.6 FL (80.0-97.0); Mean Platelet Volume 11.4 FL (9.5-12.2); Monocytes # (A) 1.28 X 10*3/uL (0.20-1.00); Monocytes % (A) 9.3 %; NRBC Per 100 WBC 0 X 10*3/uL (0.00-0.01); Neutrophils # (A) 10.78 X 10*3/uL (1.80-7.70); Neutrophils % (A) 78.6 %; Platelet Count 357 X 10*3/uL (140-440); RBC 3.23 X 10*6/uL (4.40-5.60); RDW 15.5 % (11.5-14.5); WBC 13.73 X 10*3/uL (4.50-10.00)
[2023-10-07 10:58] LABS: Glucose,Whole Blood 139 mg/dL (70-110)
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
[2023-10-07 16:03] LABS: Glucose,Whole Blood 148 mg/dL (70-110)
[2023-10-07] MEDS: SODIUM CHLORIDE 0.45% 1,000 ML IV SCH (17:12)
--- NOTE | 2023-10-07 20:38 | P.PN ---
Subjective Progress Note Date: 10/07/23 Principal diagnosis: Reason for follow-up is right leg wound and osteomyelitis The patient is a 73-year-old male with a past medical history significant for diabetes mellitus hypertension hyperlipidemia coronary disease prostate disorder, patient did have a history of previous injury to the right leg requiring operative repair with hardware and has been dealing with a nonhealing wound to the right anterior leg for few years presented to hospital mental status changes possible overdose on fentanyl patch with a worsening wound to the right leg prompting this consultation. On today's evaluation that is 10/07/2023,the patient is slightly more awake and alert today and denies any fever or any chills, patient is breathing comfortably on 2 L of oxygen, the patient denies chest pain shortness of breath and no significant cough, patient denies abdominal pain, no nausea vomiting or diarrhea, but denies any worsening pain to the right leg wound. Patient white count 13.73, creatinine 0.6 BAL culture remains to be negative Objective - Vital Signs Vital signs: Vital Signs Temp 98.6 F 10/07/23 07:16 Pulse 95 10/07/23 07:53 Resp 18 10/07/23 07:16 BP 163/75 10/07/23 07:16 Pulse Ox 96 10/07/23 07:16 FiO2 30 10/04/23 11:57 Intake & Output 10/06/23 10/07/23 10/07/23 18:59 06:59 18:59 Output Total 7452 1825 Balance -2675 -1825 Weight 90 kg Output: Gastric Drainage 375 Urine 2675 1450 Other: Voiding Method Indwelling Catheter Indwelling Catheter ABP, PAP, CO, CI - Last Documented Arterial Blood Pressure 118/42 - Exam GENERAL DESCRIPTION: An elderly male lying in bed in no distress RESPIRATORY SYSTEM: Unlabored breathing , decreased breath sounds at bases HEART: S1 S2 regular rate and rhythm , ABDOMEN: Soft , no tenderness EXTREMITIES: Right leg wound is currently dressed no drainage on the dressing - Labs CBC & Chem 7: 10/07/23 04:13 10/07/23 04:13 Labs: Abnormal Lab Results - Last 24 Hours (Table) 10/06/23 10/06/23 10/06/23 Range/Units 11:32 16:33 23:08 WBC (4.50-10.00) X 10*3/uL RBC (4.40-5.60) X 10*6/uL Hgb (13.0-17.0) g/dL Hct (39.6-50.0) % MCV (80.0-97.0) FL MCH (27.0-32.0) pg RDW (11.5-14.5) % Immature Gran # (0.00-0.04) X 10*3/uL Neutrophils # (1.80-7.70) X 10*3/uL Monocytes # (0.20-1.00) X 10*3/uL Sodium (135-145) mmol/L Anion Gap (4.00-12.00) mmol/L BUN/Creatinine Ratio (12.00-20.00) Ratio Glucose (70-110) mg/dL POC Glucose (mg/dL) 153 H 140 H 163 H (70-110) mg/dL Calcium (8.7-10.3) mg/dL Magnesium (1.5-2.4) mg/dL 10/07/23 10/07/23 10/07/23 Range/Units 04:13 04:13 06:24 WBC 13.73 H (4.50-10.00) X 10*3/uL RBC 3.23 L (4.40-5.60) X 10*6/uL Hgb 10.5 L (13.0-17.0) g/dL Hct 32.5 L (39.6-50.0) % MCV 100.6 H (80.0-97.0) FL MCH 32.5 H (27.0-32.0) pg RDW 15.5 H (11.5-14.5) % Immature Gran # 0.13 H (0.00-0.04) X 10*3/uL Neutrophils # 10.78 H (1.80-7.70) X 10*3/uL Monocytes # 1.28 H (0.20-1.00) X 10*3/uL Sodium 148 H (135-145) mmol/L Anion Gap 15.70 H (4.00-12.00) mmol/L BUN/Creatinine Ratio 35.50 H (12.00-20.00) Ratio Glucose 139 H (70-110) mg/dL POC Glucose (mg/dL) 134 H (70-110) mg/dL Calcium 8.0 L (8.7-10.3) mg/dL Magnesium 1.3 L (1.5-2.4) mg/dL Microbiology - Last 24 Hours (Table) 10/03/23 17:20 Blood Culture - Preliminary Blood Assessment and Plan (1) Allergy to multiple antibiotics Current Visit: Yes Status: Acute Code(s): Z88.1 - ALLERGY STATUS TO OTHER ANTIBIOTIC AGENTS SNOMED Code(s): 241640473 (2) Leukocytosis Current Visit: Yes Status: Acute Code(s): D72.829 - ELEVATED WHITE BLOOD CELL COUNT, UNSPECIFIED SNOMED Code(s): 899974666 (3) Leg wound, right Current Visit: Yes Status: Acute Code(s): S81.801A - UNSPECIFIED OPEN WOUND, RIGHT LOWER LEG, INITIAL ENCOUNTER SNOMED Code(s): 48416227452961514 Plan: 1patient presented to hospital with mental status changes possibly fentanyl overdose patches has been removed patient also have chronic nonhealing wound to the right leg which has been there for many years with exposed hardware and likely concerning for osteomyelitis patient wound has increased in size compared to 2-year ago when I saw the patient last with the hardware exposed and highly suspicious for possible osteomyelitis . 2local wound culture currently growing MRSA and bacteroids patient did have elevated sed rate of 85 3patient with multiple antibiotic ALLERGIES that would limit the number of antibiotic safe to use. 4patient benefit from removal of the infected hardware in the wound bed in order to completely heal this infection x-rays were reviewed with the family as well as with the radiologist and more likely the upper screw that is visible case has been discussed with orthopedics who have evaluated the patient and possible planning for removal of the hardware on Sunday as per discussion with [facility] for orthopedics 5patient to continue with the daptomycin and Flagyl will need a PICC line for outpatient IV antibiotics Dictation was produced using [employer]™ dictation software. please excuse any grammatical, word or spelling errors. Time with Patient: Less than 30
[2023-10-07 21:24] LABS: Glucose,Whole Blood 131 mg/dL (70-110)
[2023-10-08 00:24] LABS: Glucose,Whole Blood 134 mg/dL (70-110)
[2023-10-08 05:45] LABS: Glucose,Whole Blood 133 mg/dL (70-110)
[2023-10-08 05:56] LABS: African American GFR (CKD) >90 (>60 ml/min/1.73 sqM); Anion Gap 11 mmol/L; Blood Urea Nitrogen 22 mg/dL (9-20); Carbon Dioxide 25 mmol/L (22-30); Chloride 106 mmol/L (98-107); Glucose 131 mg/dL (74-99); Non-African American GFR(CKD) >90 (>60 ml/min/1.73 sqM); Sodium 142 mmol/L (137-145)
[2023-10-08 05:57] LABS: Potassium 3.5 mmol/L (3.5-5.1)
--- NOTE | 2023-10-08 09:16 | P.PN ---
Subjective Progress Note Date: 10/08/23 Principal diagnosis: Right leg wound Patient seen and examined this morning. Patient is resting comfortably in bed. NG tube is present, patient has remained n.p.o. Discussed with patient that our service was consulted for removal of screw that is present within wound bed of the right lower extremity. Patient is agreements were to move forward with procedure. He currently reports that his pain is managed at this time. Patient reports he is looking forward to having this procedure and to progress with healing. Questions and concerns have been addressed. Patient is scheduled for tomorrow 10/09/2023 for removal of screw of the right lower extremity. Patient is to remain n.p.o. at midnight. No acute concerns at this time. Objective - Vital Signs Vital signs: Vital Signs Temp 97.4 F L 10/08/23 07:23 Pulse 99 10/08/23 07:23 Resp 18 10/08/23 07:23 BP 166/81 10/08/23 07:23 Pulse Ox 98 10/08/23 07:23 FiO2 30 10/04/23 11:57 Intake & Output 10/07/23 10/08/23 10/08/23 18:59 06:59 18:59 Intake Total 1120 Output Total 1650 1900 Balance -530 -1900 Weight 86.5 kg Intake: IV 950 DAPTOmycin 450 mg In 200 Sodium Chloride 0.9% 50 ml @ 100 mls/hr IVPB Q24H MEG Rx#:[id number] Sodium Chloride 0.9% 1, 550 000 ml @ 50 mls/hr IV . Q20H MEG Rx#:[id number] metroNIDAZOLE-NS PMX 500 200 mg In Saline 1 100ml.bag @ 100 mls/hr IVPB Q8HR MEG Rx#:[id number] Intake, IV Titration 170 Amount Sodium Chloride 0.45% 1, 50 000 ml @ 50 mls/hr IV . Q20H MEG Rx#:[id number] Sodium Chloride 0.9% 1, 120 000 ml @ 10 mls/hr IV . Q24H MEG Rx#:[id number] Output: Gastric Drainage 150 Urine 1500 1900 Other: Voiding Method Indwelling Catheter Indwelling Catheter ABP, PAP, CO, CI - Last Documented Arterial Blood Pressure 118/42 - Exam RLE shows chronic non healing wound of the right anteromedial lower leg with exposed screw in the mid portion of the tibia on the medial side. This is an ulcerated type wound bed. Exposed bone noted as well. No fracture noted, but chronic deformity noted. NV intact distally. - Labs CBC & Chem 7: 10/07/23 04:13 10/08/23 05:07 Labs: Abnormal Lab Results - Last 24 Hours (Table) 10/07/23 10/07/23 10/07/23 Range/Units 04:13 04:13 10:55 WBC 13.73 H (4.50-10.00) X 10*3/uL RBC 3.23 L (4.40-5.60) X 10*6/uL Hgb 10.5 L (13.0-17.0) g/dL Hct 32.5 L (39.6-50.0) % MCV 100.6 H (80.0-97.0) FL MCH 32.5 H (27.0-32.0) pg RDW 15.5 H (11.5-14.5) % Immature Gran # 0.13 H (0.00-0.04) X 10*3/uL Neutrophils # 10.78 H (1.80-7.70) X 10*3/uL Monocytes # 1.28 H (0.20-1.00) X 10*3/uL Sodium 148 H (135-145) mmol/L Anion Gap 15.70 H (4.00-12.00) mmol/L BUN (9-20) mg/dL Creatinine (0.66-1.25) mg/dL BUN/Creatinine Ratio 35.50 H (12.00-20.00) Ratio Glucose 139 H (70-110) mg/dL POC Glucose (mg/dL) 139 H (70-110) mg/dL Calcium 8.0 L (8.7-10.3) mg/dL Magnesium 1.3 L (1.5-2.4) mg/dL 10/07/23 10/07/23 10/08/23 Range/Units 16:01 21:23 00:23 WBC (4.50-10.00) X 10*3/uL RBC (4.40-5.60) X 10*6/uL Hgb (13.0-17.0) g/dL Hct (39.6-50.0) % MCV (80.0-97.0) FL MCH (27.0-32.0) pg RDW (11.5-14.5) % Immature Gran # (0.00-0.04) X 10*3/uL Neutrophils # (1.80-7.70) X 10*3/uL Monocytes # (0.20-1.00) X 10*3/uL Sodium (135-145) mmol/L Anion Gap (4.00-12.00) mmol/L BUN (9-20) mg/dL Creatinine (0.66-1.25) mg/dL BUN/Creatinine Ratio (12.00-20.00) Ratio Glucose (70-110) mg/dL POC Glucose (mg/dL) 148 H 131 H 134 H (70-110) mg/dL Calcium (8.7-10.3) mg/dL Magnesium (1.5-2.4) mg/dL 10/08/23 10/08/23 Range/Units 05:07 05:43 WBC (4.50-10.00) X 10*3/uL RBC (4.40-5.60) X 10*6/uL Hgb (13.0-17.0) g/dL Hct (39.6-50.0) % MCV (80.0-97.0) FL MCH (27.0-32.0) pg RDW (11.5-14.5) % Immature Gran # (0.00-0.04) X 10*3/uL Neutrophils # (1.80-7.70) X 10*3/uL Monocytes # (0.20-1.00) X 10*3/uL Sodium (135-145) mmol/L Anion Gap (4.00-12.00) mmol/L BUN 22 H (9-20) mg/dL Creatinine 0.45 L (0.66-1.25) mg/dL BUN/Creatinine Ratio (12.00-20.00) Ratio Glucose 131 H (70-110) mg/dL POC Glucose (mg/dL) 133 H (70-110) mg/dL Calcium 8.0 L (8.7-10.3) mg/dL Magnesium (1.5-2.4) mg/dL Microbiology - Last 24 Hours (Table) 10/03/23 17:20 Blood Culture - Preliminary Blood Assessment and Plan Assessment: Hardware complicating wound infection Right leg wound Plan: Patient is to remain n.p.o. after midnight for surgical procedure scheduled for 10/09/2023; Removal of screw from right tibia. 2. Appreciate medical management 3. Pain management -Continue with Tylenol 4. GI prophylaxis - senna 5. DVT prophylaxis - heparin, please hold after MN 6. PT/OT - weightbearing as tolerated with a walker as needed. 7. Appreciate consult
[2023-10-08 11:49] LABS: Glucose,Whole Blood 130 mg/dL (70-110)
[2023-10-08 17:16] LABS: Glucose,Whole Blood 179 mg/dL (70-110)
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
[2023-10-08] MEDS: POTASSIUM CHLORIDE ER 20 MEQ TAB.ER PO STA (23:21)
[2023-10-08] MEDS: POTASSIUM CHLORIDE ER 10 MEQ TAB.ER.PRT PO SCH (23:22)
[2023-10-09 00:15] LABS: Glucose,Whole Blood 137 mg/dL (70-110)
[2023-10-09 06:08] LABS: Glucose,Whole Blood 137 mg/dL (70-110)
[2023-10-09 08:28] LABS: HCT 34.2 % (39.6-50.0); HGB 11.2 g/dL (13.0-17.0); MCH 32.5 pg (27.0-32.0); MCHC 32.7 g/dL (32.0-37.0); MCV 99.1 FL (80.0-97.0); Mean Platelet Volume 11.8 FL (9.5-12.2); NRBC Per 100 WBC 0 X 10*3/uL (0.00-0.01); Platelet Count 383 X 10*3/uL (140-440); RBC 3.45 X 10*6/uL (4.40-5.60); RDW 15.2 % (11.5-14.5); WBC 23.71 X 10*3/uL (4.50-10.00)
[2023-10-09 08:51] LABS: BUN/Creat Ratio 23.29 Ratio (12.00-20.00); Blood Urea Nitrogen 16.3 mg/dL (9.0-27.0); Calcium 7.7 mg/dL (8.7-10.3); Carbon Dioxide 27.2 mmol/L (21.6-31.8); Chloride 97 mmol/L (96-109); Glucose 130 mg/dL (70-110); Potassium 3.6 mmol/L (3.5-5.5); Sodium 142 mmol/L (135-145)
[2023-10-09 08:54] LABS: Magnesium 0.9 mg/dL (1.5-2.4)
[2023-10-09] MEDS ORDERED: Magnesium Replacement Protocol 1 EACH MISC MISCELLANE PRN (09:34)
[2023-10-09 09:46] LABS: Basophils # (M) 0.24 X 10*3/uL (0.00-0.10); Eosinophils # (M) 0 X 10*3/uL (0.04-0.35); Lymphocytes # (M) 0.71 X 10*3/uL (0.90-5.00); Macrocytosis (M) 2+; Monocytes # (M) 0.95 X 10*3/uL (0.20-1.00); Neutrophils # (M) 21.81 X 10*3/uL (1.80-7.70); Neutrophils % (M) 92 %
[2023-10-09] MEDS: MAGNESIUM SULFATE-D5W PMX 1 GM in DEXTROSE/WATER 1 100ML.BAG IVPB SCH (09:56)
[2023-10-09 11:25] LABS: Glucose,Whole Blood 154 mg/dL (70-110)
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
[2023-10-09] MEDS ORDERED: VANCOMYCIN IV PER PHARMACY 1 EACH MISC MISCELLANE PRN (16:06)
[2023-10-09 16:19] LABS: Glucose,Whole Blood 237 mg/dL (70-110)
--- NOTE | 2023-10-09 17:22 | P.PN ---
Progress Note - Text Progress Note Date: 10/09/23 Orthopedic surgical procedure to the right lower extremity was canceled today due to not being medically cleared. At that time patient was refusing further medical care. No orthopedic surgical intervention at this time. Please contact our service with any further questions regarding this patient.
[2023-10-09] MEDS: CEFEPIME 2 GM in SODIUM CHLORIDE 0.9% 100 ML IVPB SCH (18:12)
[2023-10-09] MEDS: VANCOMYCIN 1,500 MG in SODIUM CHLORIDE 0.9% 500 ML 500 ML IVPB STA (18:13)
[2023-10-09 23:33] LABS: HCT 30.2 % (39.0-53.0); HGB 9.8 gm/dL (13.0-17.5); Hypochromasia Moderate; MCH 33.5 pg (25.0-35.0); MCHC 32.5 g/dL (31.0-37.0); MCV 103.1 fL (80.0-100.0); Macrocytosis Slight; Mean Platelet Volume 9.3; Platelet Count 371 k/uL (150-450); RBC 2.93 m/uL (4.30-5.90); RDW 14.7 % (11.5-15.5); WBC 26.4 k/uL (3.8-10.6)
[2023-10-10 00:24] LABS: Glucose,Whole Blood 218 mg/dL (70-110)
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
[2023-10-10] MEDS: VANCOMYCIN 1,500 MG in SODIUM CHLORIDE 0.9% 500 ML 500 ML IVPB SCH ×2 (06:05→17:52)
[2023-10-10 06:13] LABS: Glucose,Whole Blood 191 mg/dL (70-110)
[2023-10-10 10:36] LABS: Basophils # (A) 0.07 X 10*3/uL (0.00-0.10); Basophils % (A) 0.3 %; Eosinophils % (A) 0.4 %; HCT 27.4 % (39.6-50.0); HGB 8.9 g/dL (13.0-17.0); Lymphocytes # (A) 1.86 X 10*3/uL (0.90-5.00); Lymphocytes % (A) 6.9 %; MCH 32.4 pg (27.0-32.0); MCHC 32.5 g/dL (32.0-37.0); MCV 99.6 FL (80.0-97.0); Mean Platelet Volume 12.2 FL (9.5-12.2); Monocytes # (A) 1.25 X 10*3/uL (0.20-1.00); Monocytes % (A) 4.6 %; NRBC Per 100 WBC 0 X 10*3/uL (0.00-0.01); Neutrophils # (A) 23.38 X 10*3/uL (1.80-7.70); Neutrophils % (A) 86.4 %; Platelet Count 346 X 10*3/uL (140-440); RBC 2.75 X 10*6/uL (4.40-5.60); RDW 15.2 % (11.5-14.5); WBC 27.03 X 10*3/uL (4.50-10.00)
[2023-10-10 10:49] LABS: ALT 23 U/L (10-49); AST 27 U/L (14-35); Albumin 2.7 g/dL (3.8-4.9); Albumin/Globulin Ratio 0.96 Ratio (1.60-3.17); Alkaline Phosphatase 67 U/L (41-126); Blood Urea Nitrogen 24.3 mg/dL (9.0-27.0); Carbon Dioxide 25.3 mmol/L (21.6-31.8); Chloride 95 mmol/L (96-109); Globulin 2.8 g/dL (1.6-3.3); Glucose 167 mg/dL (70-110); Potassium 3.3 mmol/L (3.5-5.5); Sodium 136 mmol/L (135-145); Total Bilirubin 0.5 mg/dL (0.3-1.2); Total Protein 5.5 g/dL (6.2-8.2)
--- NOTE | 2023-10-10 10:56 | XR ---
EXAMINATION TYPE: XR hand complete LT DATE OF EXAM: 10/10/2023 COMPARISON: NONE HISTORY: Pain TECHNIQUE: Three views are submitted. FINDINGS: The osseous structures are intact. No acute fracture or dislocation. Chronic deformity of the fifth m etacarpal suggests remote fracture. Diffuse demineralization moderate MCP joint arthropathy. Severe arthropathy of the trapezial scaphoid joint and moderate arthropathy first carpometacarpal joint. There is a moderate arthropathy at all DIP joints. No erosive changes. Vascular calcifications noted. Assessment of the distal phalanges limited due to flexion positioning. IMPRESSION: 1. Diffuse arthropathy most likely on the basis of osteoarthritis.
[2023-10-10 11:19] LABS: Magnesium 1.5 mg/dL (1.5-2.4)
[2023-10-10 11:48] LABS: Glucose,Whole Blood 263 mg/dL (70-110)
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
[2023-10-10 16:36] LABS: Glucose,Whole Blood 239 mg/dL (70-110)
[2023-10-10] MEDS: MIRTAZAPINE 15 MG TAB PO SCH (20:26)
[2023-10-11 00:58] LABS: Glucose,Whole Blood 181 mg/dL (70-110)
[2023-10-11 06:14] LABS: Glucose,Whole Blood 154 mg/dL (70-110)
[2023-10-11 07:17] LABS: African American GFR (CKD) >90 (>60 ml/min/1.73 sqM); Non-African American GFR(CKD) 90 (>60 ml/min/1.73 sqM)
--- NOTE | 2023-10-11 10:18 | P.PN ---
Progress Note - Text Progress Note Date: 10/11/23 Patient was initially scheduled for a right lower extremity procedure with hardware removal with Dr. Bailey for 10/09/2023. At that time patient was not medically stable and was denying medical treatment options, surgery was canceled at that time. Since that initial day, patient has been receiving care from multiple medical specialties and was cleared for surgical procedure. Dr. Bailey is unavailable at this time. I did speak with internal medicine regarding this on 10/10/2023 and discussed consulting the current on-call orthopedic group for their recommendations. Attempt was made to consult the on- call orthopedic group, they deferred the consult. Patient's current state medi dougie is very complicated, he has multiple medical comorbidities and and is being followed by multiple medical specialties. We are recommending transfer to tertiary care facility for further management, patient will likely need vascular surgery consult and plastic surgery consult for the chronic leg wound.
[2023-10-11 10:25] LABS: Basophils % (A) 0 %; Eosinophils # (A) 0.2 k/uL (0-0.7); Eosinophils % (A) 2 %; HCT 27.9 % (39.0-53.0); Hypochromasia Slight; Lymphocytes # (A) 0.8 k/uL (1.0-4.8); Lymphocytes % (A) 7 %; MCH 33.1 pg (25.0-35.0); MCHC 32.3 g/dL (31.0-37.0); MCV 102.5 fL (80.0-100.0); Macrocytosis Slight; Mean Platelet Volume 9.7; Monocytes # (A) 0.6 k/uL (0-1.0); Monocytes % (A) 5 %; Neutrophils # (A) 9.8 k/uL (1.3-7.7); Neutrophils % (A) 84 %; Platelet Count 377 k/uL (150-450); RBC 2.72 m/uL (4.30-5.90); RDW 14.6 % (11.5-15.5); WBC 11.6 k/uL (3.8-10.6)
[2023-10-11 10:45] LABS: African American GFR (CKD) >90 (>60 ml/min/1.73 sqM); Anion Gap 6 mmol/L; Blood Urea Nitrogen 23 mg/dL (9-20); Calcium 6.8 mg/dL (8.4-10.2); Carbon Dioxide 28 mmol/L (22-30); Chloride 101 mmol/L (98-107); Glucose 192 mg/dL (74-99); Magnesium 1.3 mg/dL (1.6-2.3); Non-African American GFR(CKD) 87 (>60 ml/min/1.73 sqM); Potassium 3.1 mmol/L (3.5-5.1); Sodium 135 mmol/L (137-145)
[2023-10-11 10:59] LABS: Glucose,Whole Blood 237 mg/dL (70-110)
--- NOTE | 2023-10-11 11:29 | CT ---
Head CT without contrast HISTORY: Code stroke COMPARISON: 09/26/2023. TECHNIQUE: Multiple axial images are taken from skull base to vertex without use of IV contrast mater ial. FINDINGS: The ventricles, basal cisterns and sulci over the convexities are moderately dilated consistent with moderate generalized atrophy but appropriate for the patient's age. There is no mass effect or shift of midline structures. No abnormal density is seen throughout the brain parenchyma and there is no acute intra or extra-axia l hemorrhage. The posterior fossa including the brainstem, fourth ventricle and cerebellar pontine angles appear no rmal. Intraorbital contents appear normal and symmetric. Visualized paranasal sinuses and mastoid air cells are well aerated. The calvarium is intact. IMPRESSION: 1. No acute bleed or mass effect. 2. Age-appropriate senescent changes.
--- NOTE | 2023-10-11 11:53 | CT ---
EXAMINATION TYPE: CODE STROKE: CTA head neck DATE OF EXAM: 10/11/2023 HISTORY: unresponsive COMPARISON: 01/07/2018 CT DLP: 488.3 mGycm. Automated Exposure Control for Dose Reduction was Utilized. TECHNIQUE: CTA scan of the head and neck is performed with IV Contrast, patient injected with 65 mL of Isovue 370, axial images are obtained, coronal and sagittal reformatted images are reviewed. 3D re constructed images are created on an independent workstation and reviewed. FINDINGS: There is significant plaque formation at the origin of the left common carotid artery and the possibi lity of significant stenosis is not excluded. There is a severe stenosis in the mid left common carot id artery. There is a heavily calcified plaque in the left carotid bifurcation resulting in severe gr eater than 75% stenosis of the distal left common and proximal left internal carotid arteries. There is noncalcified mild to moderate proximal right internal carotid artery stenosis. There is a he avily calcified plaque at the origin of the right vertebral artery consistent with at least a moderat e stenosis. The right jugular artery is mildly dominant compared to the left vertebral artery. Intrac ranially, there is calcification of the carotid bifurcations but no significant stenosis. There is no significant stenosis, aneurysms, vascular malformation or segmental occlusion intracranially. IMPRESSION: 1. Possible significant stenosis of the origin left common carotid artery. 2. Severe greater than 75's set hemodynamically significant stenosis in the mid left common carotid a rtery and in the origin of the left internal carotid artery. 3. Mild to moderate stenosis in the proximal right internal carotid artery. 4. No significant occlusive disease, aneurysm or vascular malformation intracranially. NASCET criteria was used in interpretation of this exam?
[2023-10-11 12:00] LABS: Basophils # (A) 0.1 k/uL (0-0.2); Basophils % (A) 0 %; Eosinophils # (A) 0.2 k/uL (0-0.7); Eosinophils % (A) 2 %; HCT 27.2 % (39.0-53.0); HGB 8.8 gm/dL (13.0-17.5); Hypochromasia Slight; Lymphocytes # (A) 0.8 k/uL (1.0-4.8); Lymphocytes % (A) 7 %; MCH 33.3 pg (25.0-35.0); MCHC 32.3 g/dL (31.0-37.0); MCV 103.3 fL (80.0-100.0); Macrocytosis Moderate; Mean Platelet Volume 10.2; Monocytes # (A) 0.7 k/uL (0-1.0); Monocytes % (A) 6 %; Neutrophils # (A) 9.3 k/uL (1.3-7.7); Neutrophils % (A) 83 %; Platelet Count 353 k/uL (150-450); RBC 2.63 m/uL (4.30-5.90); RDW 15.2 % (11.5-15.5); WBC 11.3 k/uL (3.8-10.6)
[2023-10-11 12:09] LABS: INR 1.2 (<1.2); Partial Thromboplastin Time 31.5 sec (22.0-30.0); Prothrombin Time 12.4 sec (10.0-12.5)
[2023-10-11 12:20] LABS: ALT 20 U/L (4-49); African American GFR (CKD) >90 (>60 ml/min/1.73 sqM); Albumin 2.4 g/dL (3.5-5.0); Albumin/Globulin Ratio 0.8; Anion Gap 4 mmol/L; Blood Urea Nitrogen 25 mg/dL (9-20); Calcium 6.9 mg/dL (8.4-10.2); Carbon Dioxide 29 mmol/L (22-30); Chloride 102 mmol/L (98-107); Glucose 198 mg/dL (74-99); Non-African American GFR(CKD) 89 (>60 ml/min/1.73 sqM); Sodium 135 mmol/L (137-145); Total Bilirubin 0.7 mg/dL (0.2-1.3); Total Protein 5.4 g/dL (6.3-8.2)
[2023-10-11 12:21] LABS: AST 35 U/L (17-59); Alkaline Phosphatase 53 U/L (38-126); Potassium 3.2 mmol/L (3.5-5.1)
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
[2023-10-11 13:11] LABS: ABG Base Excess 6.6 mmol/L; ABG HCO3 31 mmol/L (21-25); ABG Oxygen Saturation 96.2 % (94-97); ABG PCO2 45 mmHg (35-45); ABG PH 7.45 (7.35-7.45); ABG PO2 74 mmHg (83-108); ABG TCO2 33 mmol/L (19-24); Allen Test Performed? Yes
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
--- NOTE | 2023-10-11 14:27 | US ---
EXAMINATION TYPE: US carotid duplex BILAT DATE OF EXAM: 10/11/2023 COMPARISON: CTA: Today CLINICAL INDICATION: Male, 73 years old with history of evaluate carotid stenosis, mental status villatoro ges; Stroke Pt unconscious, left side difficult due to positioning TECHNIQUE: Carotid duplex ultrasound examination. Indirect Doppler criteria was utilized. FINDINGS: EXAM MEASUREMENTS: RIGHT: Peak Systolic Velocity (PSV) cm/sec ----- Right CCA: 83.8 ----- Right ICA: 183.3 ----- Right ECA: 155.8 ICA/CCA ratio: 2.2 RIGHT: End Diastole cm/sec ----- Right CCA: 12.5 ----- Right ICA: 34.6 ----- Right ECA: 5.3 LEFT: Peak Systolic Velocity (PSV) cm/sec ----- Left CCA: 131.9 ----- Left ICA: 123.9 ----- Left ECA: 294.8 ICA/CCA ratio: 0.9 LEFT: End Diastole cm/sec ----- Left CCA: 21.5 ----- Left ICA: 31.3 ----- Left ECA: 0.0 VERTEBRALS (direction of flow): Right Vertebral: Antegrade Left Vertebral: Antegrade Rhythm: Normal TILT TRAY DRIVER NOTES: Severe plaque seen throughout bilateral CCA's and ICA's. Elevated velocities seen in right prox ICA and left ECA IMPRESSION: Findings are suggestive of 50-69% stenosis involving the proximal right ICA with severe atherosclerot ic plaque noted bilaterally. Correlate with CTA of the neck as clinically warranted. Criteria for Assigning % of Stenosis / Diameter reduction (Estimation based on the indirect measurements of the internal carotid artery velocities (ICA PSV). 1. Normal (no stenosis)=ICA PSV < 125 cm/s: ratio < 2.0: ICA EDV<40 cm/s. 2. Less than 50% stenosis=ICA PSV < 125 cm/s: ratio < 2.0: ICA EDV<40 cm/s. 3. 50 to 69% stenosis=ICA PSV of 125 to 230 cm/s: ration 2.0 ? 4.0: ICA EDV 40-100 cm/s. 4. Greater than 70% stenosis to near occlusion= ICA PSV > 230 cm/s: ratio > 4.0: ICA EDV > 100 cm/s. 5. Near occlusion= ICA PSV velocities may be low or undetectable: variable ratio and ICA EDV. 6. Total occlusion=unable to detect flow.
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
[2023-10-11 14:39] VITALS: BMI 27.6
[2023-10-11] MEDS: ASPIRIN 325 MG TAB PO SCH (14:41)
[2023-10-11] MEDS: ASPIRIN 300 MG SUPP RECTAL SCH (14:41)
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
[2023-10-11] MEDS: METOPROLOL TARTRATE 12.5 MG TAB PO SCH (15:57)
[2023-10-11 17:16] LABS: Glucose,Whole Blood 187 mg/dL (70-110)
--- NOTE | 2023-10-11 18:45 | P.CNNES ---
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 108.5 H MCH MCHC 30.5 L RDW Immature Gran # Neutrophils # 7.8 H Neutrophils # (Manual) Lymphocytes # Lymphocytes # (Manual) Monocytes # Eosinophils # (Manual) Basophils # (Manual) Macrocytosis Marked A Macrocytosis (manual) ESR INR APTT ABG pH ABG pCO2 ABG pO2 ABG HCO3 27 H ABG Total CO2 28 H ABG O2 Saturation 98.5 H Sodium Potassium Chloride 114 H Carbon Dioxide Anion Gap BUN 26 H Creatinine 0.51 L BUN/Creatinine Ratio Glucose 157 H POC Glucose (mg/dL) Hemoglobin A1c Calcium 7.7 L Magnesium Troponin I C-Reactive Protein Total Protein Albumin Albumin/Globulin Ratio Procalcitonin Urine Protein Fluid Appearance Urine Opiates Screen Ur Oxycodone Screen 10/03/23 10/03/23 10/03/23 06:23 11:52 17:21 WBC RBC Hgb Hct MCV MCH MCHC RDW Immature Gran # Neutrophils # Neutrophils # (Manual) Lymphocytes # Lymphocytes # (Manual) Monocytes # Eosinophils # (Manual) Basophils # (Manual) Macrocytosis Macrocytosis (manual) ESR INR APTT ABG pH ABG pCO2 ABG pO2 ABG HCO3 ABG Total CO2 ABG O2 Saturation Sodium Potassium Chloride Carbon Dioxide Anion Gap BUN Creatinine BUN/Creatinine Ratio Glucose POC Glucose (mg/dL) 166 H 198 H 216 H Hemoglobin A1c Calcium Magnesium Troponin I C-Reactive Protein Total Protein Albumin Albumin/Globulin Ratio Procalcitonin Urine Protein Fluid Appearance Urine Opiates Screen Ur Oxycodone Screen 10/03/23 10/04/23 10/04/23 23:21 04:47 04:47 WBC 14.5 H RBC 2.78 L Hgb 9.1 L Hct 29.6 L MCV 106.3 H MCH MCHC 30.9 L RDW Immature Gran # Neutrophils # 11.5 H Neutrophils # (Manual) Lymphocytes # Lymphocytes # (Manual) Monocytes # 1.3 H Eosinophils # (Manual) Basophils # (Manual) Macrocytosis Macrocytosis (manual) ESR INR APTT ABG pH ABG pCO2 ABG pO2 ABG HCO3 ABG Total CO2 ABG O2 Saturation Sodium Potassium Chloride 113 H Carbon Dioxide Anion Gap BUN 31 H Creatinine 0.56 L BUN/Creatinine Ratio Glucose 213 H POC Glucose (mg/dL) 194 H Hemoglobin A1c Calcium 7.6 L Magnesium Troponin I C-Reactive Protein Total Protein Albumin Albumin/Globulin Ratio Procalcitonin Urine Protein Fluid Appearance Urine Opiates Screen Ur Oxycodone Screen 10/04/23 10/04/23 10/04/23 05:30 05:48 11:23 WBC RBC Hgb Hct MCV MCH MCHC RDW Immature Gran # Neutrophils # Neutrophils # (Manual) Lymphocytes # Lymphocytes # (Manual) Monocytes # Eosinophils # (Manual) Basophils # (Manual) Macrocytosis Macrocytosis (manual) ESR INR APTT ABG pH ABG pCO2 49 H ABG pO2 ABG HCO3 27 H 28 H ABG Total CO2 29 H 29 H ABG O2 Saturation 98.8 H Sodium Potassium Chloride Carbon Dioxide Anion Gap BUN Creatinine BUN/Creatinine Ratio Glucose POC Glucose (mg/dL) 222 H Hemoglobin A1c Calcium Magnesium Troponin I C-Reactive Protein Total Protein Albumin Albumin/Globulin Ratio Procalcitonin Urine Protein Fluid Appearance Urine Opiates Screen Ur Oxycodone Screen 10/04/23 10/04/23 10/05/23 11:24 17:58 00:18 WBC RBC Hgb Hct MCV MCH MCHC RDW Immature Gran # Neutrophils # Neutrophils # (Manual) Lymphocytes # Lymphocytes # (Manual) Monocytes # Eosinophils # (Manual) Basophils # (Manual) Macrocytosis Macrocytosis (manual) ESR INR APTT ABG pH ABG pCO2 ABG pO2 ABG HCO3 ABG Total CO2 ABG O2 Saturation Sodium Potassium Chloride Carbon Dioxide Anion Gap BUN Creatinine BUN/Creatinine Ratio Glucose POC Glucose (mg/dL) 240 H 151 H 140 H Hemoglobin A1c Calcium Magnesium Troponin I C-Reactive Protein Total Protein Albumin Albumin/Globulin Ratio Procalcitonin Urine Protein Fluid Appearance Urine Opiates Screen Ur Oxycodone Screen 10/05/23 10/05/23 10/05/23 04:55 04:55 06:20 WBC 11.4 H RBC 2.74 L Hgb 9.0 L Hct 28.9 L MCV 105.2 H MCH MCHC RDW Immature Gran # Neutrophils # Neutrophils # (Manual) Lymphocytes # Lymphocytes # (Manual) Monocytes # Eosinophils # (Manual) Basophils # (Manual) Macrocytosis Macrocytosis (manual) ESR INR APTT ABG pH ABG pCO2 ABG pO2 ABG HCO3 ABG Total CO2 ABG O2 Saturation Sodium Potassium Chloride 111 H Carbon Dioxide Anion Gap BUN 28 H Creatinine 0.52 L BUN/Creatinine Ratio Glucose 139 H POC Glucose (mg/dL) 134 H Hemoglobin A1c Calcium 7.9 L Magnesium 1.5 L Troponin I C-Reactive Protein Total Protein Albumin Albumin/Globulin Ratio Procalcitonin Urine Protein Fluid Appearance Urine Opiates Screen Ur Oxycodone Screen 10/05/23 10/06/23 10/06/23 11:59 00:18 06:50 WBC RBC Hgb Hct MCV MCH MCHC RDW Immature Gran # Neutrophils # Neutrophils # (Manual) Lymphocytes # Lymphocytes # (Manual) Monocytes # Eosinophils # (Manual) Basophils # (Manual) Macrocytosis Macrocytosis (manual) ESR INR APTT ABG pH ABG pCO2 ABG pO2 ABG HCO3 ABG Total CO2 ABG O2 Saturation Sodium Potassium Chloride Carbon Dioxide Anion Gap BUN Creatinine BUN/Creatinine Ratio Glucose POC Glucose (mg/dL) 179 H 159 H 125 H Hemoglobin A1c Calcium Magnesium Troponin I C-Reactive Protein Total Protein Albumin Albumin/Globulin Ratio Procalcitonin Urine Protein Fluid Appearance Urine Opiates Screen Ur Oxycodone Screen 10/06/23 10/06/23 10/06/23 11:32 16:33 23:08 WBC RBC Hgb Hct MCV MCH MCHC RDW Immature Gran # Neutrophils # Neutrophils # (Manual) Lymphocytes # Lymphocytes # (Manual) Monocytes # Eosinophils # (Manual) Basophils # (Manual) Macrocytosis Macrocytosis (manual) ESR INR APTT ABG pH ABG pCO2 ABG pO2 ABG HCO3 ABG Total CO2 ABG O2 Saturation Sodium Potassium Chloride Carbon Dioxide Anion Gap BUN Creatinine BUN/Creatinine Ratio Glucose POC Glucose (mg/dL) 153 H 140 H 163 H Hemoglobin A1c Calcium Magnesium Troponin I C-Reactive Protein Total Protein Albumin Albumin/Globulin Ratio Procalcitonin Urine Protein Fluid Appearance Urine Opiates Screen Ur Oxycodone Screen 10/07/23 10/07/23 10/07/23 04:13 04:13 06:24 WBC 13.73 H RBC 3.23 L Hgb 10.5 L Hct 32.5 L MCV 100.6 H MCH 32.5 H MCHC RDW 15.5 H Immature Gran # 0.13 H Neutrophils # 10.78 H Neutrophils # (Manual) Lymphocytes # Lymphocytes # (Manual) Monocytes # 1.28 H Eosinophils # (Manual) Basophils # (Manual) Macrocytosis Macrocytosis (manual) ESR INR APTT ABG pH ABG pCO2 ABG pO2 ABG HCO3 ABG Total CO2 ABG O2 Saturation Sodium 148 H Potassium Chloride Carbon Dioxide Anion Gap 15.70 H BUN Creatinine BUN/Creatinine Ratio 35.50 H Glucose 139 H POC Glucose (mg/dL) 134 H Hemoglobin A1c Calcium 8.0 L Magnesium 1.3 L Troponin I C-Reactive Protein Total Protein Albumin Albumin/Globulin Ratio Procalcitonin Urine Protein Fluid Appearance Urine Opiates Screen Ur Oxycodone Screen 10/07/23 10/07/23 10/07/23 10:55 16:01 21:23 WBC RBC Hgb Hct MCV MCH MCHC RDW Immature Gran # Neutrophils # Neutrophils # (Manual) Lymphocytes # Lymphocytes # (Manual) Monocytes # Eosinophils # (Manual) Basophils # (Manual) Macrocytosis Macrocytosis (manual) ESR INR APTT ABG pH ABG pCO2 ABG pO2 ABG HCO3 ABG Total CO2 ABG O2 Saturation Sodium Potassium Chloride Carbon Dioxide Anion Gap BUN Creatinine BUN/Creatinine Ratio Glucose POC Glucose (mg/dL) 139 H 148 H 131 H Hemoglobin A1c Calcium Magnesium Troponin I C-Reactive Protein Total Protein Albumin Albumin/Globulin Ratio Procalcitonin Urine Protein Fluid Appearance Urine Opiates Screen Ur Oxycodone Screen 10/08/23 10/08/23 10/08/23 00:23 05:07 05:43 WBC RBC Hgb Hct MCV MCH MCHC RDW Immature Gran # Neutrophils # Neutrophils # (Manual) Lymphocytes # Lymphocytes # (Manual) Monocytes # Eosinophils # (Manual) Basophils # (Manual) Macrocytosis Macrocytosis (manual) ESR INR APTT ABG pH ABG pCO2 ABG pO2 ABG HCO3 ABG Total CO2 ABG O2 Saturation Sodium Potassium Chloride Carbon Dioxide Anion Gap BUN 22 H Creatinine 0.45 L BUN/Creatinine Ratio Glucose 131 H POC Glucose (mg/dL) 134 H 133 H Hemoglobin A1c Calcium 8.0 L Magnesium Troponin I C-Reactive Protein Total Protein Albumin Albumin/Globulin Ratio Procalcitonin Urine Protein Fluid Appearance Urine Opiates Screen Ur Oxycodone Screen 10/08/23 10/08/23 10/09/23 11:48 17:15 00:13 WBC RBC Hgb Hct MCV MCH MCHC RDW Immature Gran # Neutrophils # Neutrophils # (Manual) Lymphocytes # Lymphocytes # (Manual) Monocytes # Eosinophils # (Manual) Basophils # (Manual) Macrocytosis Macrocytosis (manual) ESR INR APTT ABG pH ABG pCO2 ABG pO2 ABG HCO3 ABG Total CO2 ABG O2 Saturation Sodium Potassium Chloride Carbon Dioxide Anion Gap BUN Creatinine BUN/Creatinine Ratio Glucose POC Glucose (mg/dL) 130 H 179 H 137 H Hemoglobin A1c Calcium Magnesium Troponin I C-Reactive Protein Total Protein Albumin Albumin/Globulin Ratio Procalcitonin Urine Protein Fluid Appearance Urine Opiates Screen Ur Oxycodone Screen 10/09/23 10/09/23 10/09/23 05:32 05:32 06:07 WBC 23.71 H RBC 3.45 L Hgb 11.2 L Hct 34.2 L MCV 99.1 H MCH 32.5 H MCHC RDW 15.2 H Immature Gran # Neutrophils # Neutrophils # (Manual) 21.81 H Lymphocytes # Lymphocytes # (Manual) 0.71 L Monocytes # Eosinophils # (Manual) 0 L Basophils # (Manual) 0.24 H Macrocytosis Macrocytosis (manual) 2+ A ESR INR APTT ABG pH ABG pCO2 ABG pO2 ABG HCO3 ABG Total CO2 ABG O2 Saturation Sodium Potassium Chloride Carbon Dioxide Anion Gap 17.80 H BUN Creatinine BUN/Creatinine Ratio 23.29 H Glucose 130 H POC Glucose (mg/dL) 137 H Hemoglobin A1c Calcium 7.7 L Magnesium 0.9 A* Troponin I C-Reactive Protein Total Protein Albumin Albumin/Globulin Ratio Procalcitonin Urine Protein Fluid Appearance Urine Opiates Screen Ur Oxycodone Screen 10/09/23 10/09/23 10/09/23 11:23 16:18 16:28 WBC RBC Hgb Hct MCV MCH MCHC RDW Immature Gran # Neutrophils # Neutrophils # (Manual) Lymphocytes # Lymphocytes # (Manual) Monocytes # Eosinophils # (Manual) Basophils # (Manual) Macrocytosis Macrocytosis (manual) ESR INR APTT ABG pH ABG pCO2 ABG pO2 ABG HCO3 ABG Total CO2 ABG O2 Saturation Sodium Potassium Chloride Carbon Dioxide Anion Gap BUN Creatinine BUN/Creatinine Ratio Glucose POC Glucose (mg/dL) 154 H 237 H Hemoglobin A1c Calcium Magnesium Troponin I C-Reactive Protein 15.4 H Total Protein Albumin Albumin/Globulin Ratio Procalcitonin Urine Protein Fluid Appearance Urine Opiates Screen Ur Oxycodone Screen 10/09/23 10/09/23 10/10/23 16:28 22:15 00:22 WBC 26.4 H RBC 2.93 L Hgb 9.8 L Hct 30.2 L MCV 103.1 H MCH MCHC RDW Immature Gran # Neutrophils # Neutrophils # (Manual) Lymphocytes # Lymphocytes # (Manual) Monocytes # Eosinophils # (Manual) Basophils # (Manual) Macrocytosis Macrocytosis (manual) ESR INR APTT ABG pH ABG pCO2 ABG pO2 ABG HCO3 ABG Total CO2 ABG O2 Saturation Sodium Potassium Chloride Carbon Dioxide Anion Gap BUN Creatinine BUN/Creatinine Ratio Glucose POC Glucose (mg/dL) 218 H Hemoglobin A1c Calcium Magnesium Troponin I C-Reactive Protein Total Protein Albumin Albumin/Globulin Ratio Procalcitonin 0.43 H Urine Protein Fluid Appearance Urine Opiates Screen Ur Oxycodone Screen 10/10/23 10/10/23 10/10/23 06:11 06:34 06:34 WBC 27.03 H RBC 2.75 L Hgb 8.9 L Hct 27.4 L MCV 99.6 H MCH 32.4 H MCHC RDW 15.2 H Immature Gran # 0.37 H Neutrophils # 23.38 H Neutrophils # (Manual) Lymphocytes # Lymphocytes # (Manual) Monocytes # 1.25 H Eosinophils # (Manual) Basophils # (Manual) Macrocytosis Macrocytosis (manual) ESR INR APTT ABG pH ABG pCO2 ABG pO2 ABG HCO3 ABG Total CO2 ABG O2 Saturation Sodium Potassium 3.3 L Chloride 95 L Carbon Dioxide Anion Gap 15.70 H BUN Creatinine BUN/Creatinine Ratio 27.00 H Glucose 167 H POC Glucose (mg/dL) 191 H Hemoglobin A1c Calcium 7.0 L Magnesium Troponin I C-Reactive Protein Total Protein 5.5 L Albumin 2.7 L Albumin/Globulin Ratio 0.96 L Procalcitonin Urine Protein Fluid Appearance Urine Opiates Screen Ur Oxycodone Screen 10/10/23 10/10/23 10/11/23 11:47 16:35 00:56 WBC RBC Hgb Hct MCV MCH MCHC RDW Immature Gran # Neutrophils # Neutrophils # (Manual) Lymphocytes # Lymphocytes # (Manual) Monocytes # Eosinophils # (Manual) Basophils # (Manual) Macrocytosis Macrocytosis (manual) ESR INR APTT ABG pH ABG pCO2 ABG pO2 ABG HCO3 ABG Total CO2 ABG O2 Saturation Sodium Potassium Chloride Carbon Dioxide Anion Gap BUN Creatinine BUN/Creatinine Ratio Glucose POC Glucose (mg/dL) 263 H 239 H 181 H Hemoglobin A1c Calcium Magnesium Troponin I C-Reactive Protein Total Protein Albumin Albumin/Globulin Ratio Procalcitonin Urine Protein Fluid Appearance Urine Opiates Screen Ur Oxycodone Screen 10/11/23 10/11/23 10/11/23 06:12 10:13 10:13 WBC 11.6 H RBC 2.72 L Hgb 9.0 L Hct 27.9 L MCV 102.5 H MCH MCHC RDW Immature Gran # Neutrophils # 9.8 H Neutrophils # (Manual) Lymphocytes # 0.8 L Lymphocytes # (Manual) Monocytes # Eosinophils # (Manual) Basophils # (Manual) Macrocytosis Macrocytosis (manual) ESR INR APTT ABG pH ABG pCO2 ABG pO2 ABG HCO3 ABG Total CO2 ABG O2 Saturation Sodium 135 L Potassium 3.1 L Chloride Carbon Dioxide Anion Gap BUN 23 H Creatinine BUN/Creatinine Ratio Glucose 192 H POC Glucose (mg/dL) 154 H Hemoglobin A1c Calcium 6.8 L Magnesium 1.3 L Troponin I C-Reactive Protein Total Protein Albumin Albumin/Globulin Ratio Procalcitonin Urine Protein Fluid Appearance Urine Opiates Screen Ur Oxycodone Screen 10/11/23 10/11/23 10/11/23 10:57 11:28 11:28 WBC 11.3 H RBC 2.63 L Hgb 8.8 L Hct 27.2 L MCV 103.3 H MCH MCHC RDW Immature Gran # Neutrophils # 9.3 H Neutrophils # (Manual) Lymphocytes # 0.8 L Lymphocytes # (Manual) Monocytes # Eosinophils # (Manual) Basophils # (Manual) Macrocytosis Macrocytosis (manual) ESR INR 1.2 H APTT 31.5 H ABG pH ABG pCO2 ABG pO2 ABG HCO3 ABG Total CO2 ABG O2 Saturation Sodium Potassium Chloride Carbon Dioxide Anion Gap BUN Creatinine BUN/Creatinine Ratio Glucose POC Glucose (mg/dL) 237 H Hemoglobin A1c Calcium Magnesium Troponin I C-Reactive Protein Total Protein Albumin Albumin/Globulin Ratio Procalcitonin Urine Protein Fluid Appearance Urine Opiates Screen Ur Oxycodone Screen 10/11/23 10/11/23 11:28 11:28 WBC RBC Hgb Hct MCV MCH MCHC RDW Immature Gran # Neutrophils # Neutrophils # (Manual) Lymphocytes # Lymphocytes # (Manual) Monocytes # Eosinophils # (Manual) Basophils # (Manual) Macrocytosis Macrocytosis (manual) ESR INR APTT ABG pH ABG pCO2 ABG pO2 ABG HCO3 ABG Total CO2 ABG O2 Saturation Sodium 135 L Potassium 3.2 L Chloride Carbon Dioxide Anion Gap BUN 25 H Creatinine BUN/Creatinine Ratio Glucose 198 H POC Glucose (mg/dL) Hemoglobin A1c Calcium 6.9 L Magnesium Troponin I 0.490 H* C-Reactive Protein Total Protein 5.4 L Albumin 2.4 L Albumin/Globulin Ratio Procalcitonin Urine Protein Fluid Appearance Urine Opiates Screen Ur Oxycodone Screen Assessment and Plan Assessment: * Acute encephalopathy, unclear cause. Rule out septic/toxic metabolic encephalopathy. CVA also in the differential, although no major deficits noted on limited examination. Only right arm appears slightly weaker than the left for drifting but most of the strength is equal. No significant focality. NIH stroke scale difficult to assess because of altered mental status. * Severe left, greater than 75% stenosis left mid common carotid artery and in the origin of the left ICA. This could be potentially symptomatic. CVA could be related to left ICA stenosis, and septic emboli also possibility with evidence of acute wound infection, and fever 100.3. * Admission to the hospital for altered mental status and fentanyl overdose. * Status post extubation 10/04/2023. 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 * Acute kidney injury * Metabolic acidosis * Acute systolic congestive heart failure with EF 40%. * Moderate to severe aortic stenosis. * CAD with history of bypass grafting 2009. * Hypertension * Diabetes * Hyperlipidemia * Noncompliance with medication. Plan: * Patient has acute encephalopathy, unclear cause. Rule out septic or toxic metabolic encephalopathy versus CVA. * Patient has very mild focal deficits. Stroke code was activated. Patient was considered not a candidate for tPA, as risks outweigh the benefit. Discussed at great length with patient's family, as well as neurointervention Dr. Drew and all mutually agreed for no thrombolysis. * CTA of the head and neck was done, which revealed possible significant stenosis of the origin left common carotid artery. Severe greater than 75% hemodynamically significant stenosis in the mid left common carotid artery and in the origin of the left internal carotid artery. Mild to moderate stenosis in the proximal right ICA. No significant occlusive disease aneurysm or vascular malformation intracranially. * Stat MRI of the brain, evaluate for acute stroke. * 2D echo performed 09/28/2023 revealed LVEF 40%. Moderate MR, moderate to s evere aortic stenosis. Consider MAGGIE. * Hemoglobin A1c 6.4 * Fasting lipid panel * B12 335, homocystine 10.4, RBC folate 509. Check TSH. Ammonia is normal 13. Start B12 replacement. * Telemetry monitoring, rule out arrhythmia. * EEG rule out any epileptiform activity. Evaluate for encephalopathy. * Continue neurochecks. * Start aspirin regimen. Patient cannot take anything by mouth, therefore patient will receive aspirin 300 mg rectally. Once able to take by mouth, would recommend dual antiplatelet therapy. * DVT prophylaxis: Patient on heparin 5/3 units subcu every 8 hours. * Other medical management as per IM and other specialties on board. Patient on cefepime 2 g every 8 hours and vancomycin for wound infection. * Discussed with primary team in detail. * Neurology will follow. Thank you for the consult. Time with Patient: Greater than 30 (Spent at least 1 hour of critical time.)
[2023-10-11 20:24] LABS: Glucose,Whole Blood 187 mg/dL (70-110)
[2023-10-11] MEDS: CYANOCOBALAMIN 1,000 MCG/ML 1 ML VIAL IM SCH (21:09)
--- NOTE | 2023-10-11 22:16 | P.PN ---
Subjective Progress Note Date: 10/08/23 Principal diagnosis: Reason for follow-up is right leg wound and osteomyelitis The patient is a 73-year-old male with a past medical history significant for diabetes mellitus hypertension hyperlipidemia coronary disease prostate disorder, patient did have a history of previous injury to the right leg requiring operative repair with hardware and has been dealing with a nonhealing wound to the right anterior leg for few years presented to hospital mental status changes possible overdose on fentanyl patch with a worsening wound to the right leg prompting this consultation. On today's evaluation that is 10/08/2023,the patient remains to be afebrile, patient is on 3 L nasal cannula supplemental oxygen patient is more awake alert today and denies any shortness of breath no chest pain or cough.Patient denies having any nausea or vomiting, no abdominal pain and no diarrhea has been reported Patient did have a creatinine 0.45 Objective - Vital Signs Vital signs: Vital Signs Temp 97.7 F 10/08/23 19:38 Pulse 90 10/08/23 21:17 Resp 18 10/08/23 19:38 BP 131/77 10/08/23 19:38 Pulse Ox 97 10/08/23 19:38 FiO2 30 10/04/23 11:57 Intake & Output 10/08/23 10/08/23 10/09/23 06:59 18:59 06:59 Intake Total 200 Output Total 1900 1200 Balance -1900 -1000 Weight 86.5 kg 86.5 kg Intake: Oral 200 Output: Urine 1900 1200 Other: Voiding Method Indwelling Catheter Indwelling Catheter # Voids 3 ABP, PAP, CO, CI - Last Documented Arterial Blood Pressure 118/42 - Exam GENERAL DESCRIPTION: An elderly male lying in bed in no distress RESPIRATORY SYSTEM: Unlabored breathing , decreased breath sounds at bases HEART: S1 S2 regular rate and rhythm , ABDOMEN: Soft , no tenderness EXTREMITIES: Right leg wound is currently dressed no drainage on the dressing - Labs CBC & Chem 7: 10/11/23 11:28 10/11/23 11:28 Labs: Abnormal Lab Results - Last 24 Hours (Table) 10/08/23 10/08/23 10/08/23 Range/Units 00:23 05:07 05:43 BUN 22 H (9-20) mg/dL Creatinine 0.45 L (0.66-1.25) mg/dL Glucose 131 H (74-99) mg/dL POC Glucose (mg/dL) 134 H 133 H (70-110) mg/dL Calcium 8.0 L (8.4-10.2) mg/dL 10/08/23 10/08/23 Range/Units 11:48 17:15 BUN (9-20) mg/dL Creatinine (0.66-1.25) mg/dL Glucose (74-99) mg/dL POC Glucose (mg/dL) 130 H 179 H (70-110) mg/dL Calcium (8.4-10.2) mg/dL Microbiology - Last 24 Hours (Table) 09/28/23 08:30 Acid Fast Bacilli Smear - Preliminary Bronchoalviolar Lavage - Right Acid Fast Bacilli Culture - Preliminary Assessment and Plan (1) Allergy to multiple antibiotics Current Visit: Yes Status: Acute Code(s): Z88.1 - ALLERGY STATUS TO OTHER ANTIBIOTIC AGENTS SNOMED Code(s): 379835343 (2) Leukocytosis Current Visit: Yes Status: Acute Code(s): D72.829 - ELEVATED WHITE BLOOD CELL COUNT, UNSPECIFIED SNOMED Code(s): 929578400 (3) Leg wound, right Current Visit: Yes Status: Acute Code(s): S81.801A - UNSPECIFIED OPEN WOUND, RIGHT LOWER LEG, INITIAL ENCOUNTER SNOMED Code(s): 75481112008300550 Plan: 1patient presented to hospital with mental status changes possibly fentanyl overdose patches has been removed patient also have chronic nonhealing wound to the right leg which has been there for many years with exposed hardware and likely concerning for osteomyelitis patient wound has increased in size compared to 2-year ago when I saw the patient last with the hardware exposed and highly suspicious for possible osteomyelitis . 2local wound culture currently growing MRSA and bacteroids patient did have elevated sed rate of 85 3patient with multiple antibiotic ALLERGIES that would limit the number of antibiotic safe to use. 4patient benefit from removal of the infected hardware in the wound bed in order to completely heal this infection x-rays were reviewed with the family as well as with the radiologist and more likely the upper screw that is visible case has been discussed with orthopedics who have evaluated the patient and possible planning for removal of the hardware when medically stable 5patient to continue with the daptomycin and Flagyl and monitor clinical course closely Dictation was produced using dragon dictation software. please excuse any grammatical, word or spelling errors. Time with Patient: Less than 30
--- NOTE | 2023-10-11 22:17 | P.PN ---
Subjective Progress Note Date: 10/09/23 Principal diagnosis: Reason for follow-up is right leg wound and osteomyelitis The patient is a 73-year-old male with a past medical history significant for diabetes mellitus hypertension hyperlipidemia coronary disease prostate disorder, patient did have a history of previous injury to the right leg requiring operative repair with hardware and has been dealing with a nonhealing wound to the right anterior leg for few years presented to hospital mental status changes possible overdose on fentanyl patch with a worsening wound to the right leg prompting this consultation. On today's evaluation that is 10/09/2023, the patient continues to be afebrile, the patient is on 6 L nasal oxygen and breathing comfortably, the Pt denies having any chest pain or cough, the patient denies having any abdominal pain no vomiting or any diarrhea denies any worsening pain to the leg wound. Patient white count is up to 23.71, creatinine 0.7 chest x-ray diffuse bilateral infiltrate and effusion correlate for pulm edema versus ARDS Objective - Vital Signs Vital signs: Vital Signs Temp 98.6 F 10/09/23 07:25 Pulse 131 H 10/09/23 07:25 Resp 33 H 10/09/23 07:25 BP 118/67 10/09/23 07:25 Pulse Ox 94 L 10/09/23 07:25 FiO2 30 10/04/23 11:57 Intake & Output 10/08/23 10/09/23 10/09/23 18:59 06:59 18:59 Intake Total 200 Output Total 1200 1400 Balance -1000 -1400 Weight 86.5 kg 84.5 kg Intake: Oral 200 Output: Urine 1200 1400 Other: Voiding Method Indwelling Catheter Indwelling Catheter # Voids 3 # Bowel Movements 1 ABP, PAP, CO, CI - Last Documented Arterial Blood Pressure 118/42 - Exam GENERAL DESCRIPTION: An elderly male lying in bed in no distress RESPIRATORY SYSTEM: Unlabored breathing , decreased breath sounds at bases HEART: S1 S2 regular rate and rhythm , ABDOMEN: Soft , no tenderness EXTREMITIES: Right leg wound is currently dressed no drainage on the dressing - Labs CBC & Chem 7: 10/11/23 11:28 10/11/23 11:28 Labs: Abnormal Lab Results - Last 24 Hours (Table) 10/08/23 10/09/23 10/09/23 Range/Units 17:15 00:13 05:32 WBC 23.71 H (4.50-10.00) X 10*3/uL RBC 3.45 L (4.40-5.60) X 10*6/uL Hgb 11.2 L (13.0-17.0) g/dL Hct 34.2 L (39.6-50.0) % MCV 99.1 H (80.0-97.0) FL MCH 32.5 H (27.0-32.0) pg RDW 15.2 H (11.5-14.5) % Neutrophils # (Manual) 21.81 H (1.80-7.70) X 10*3/uL Lymphocytes # (Manual) 0.71 L (0.90-5.00) X 10*3/uL Eosinophils # (Manual) 0 L (0.04-0.35) X 10*3/uL Basophils # (Manual) 0.24 H (0.00-0.10) X 10*3/uL Macrocytosis (manual) 2+ A Anion Gap (4.00-12.00) mmol/L BUN/Creatinine Ratio (12.00-20.00) Ratio Glucose (70-110) mg/dL POC Glucose (mg/dL) 179 H 137 H (70-110) mg/dL Calcium (8.7-10.3) mg/dL Magnesium (1.5-2.4) mg/dL 10/09/23 10/09/23 10/09/23 Range/Units 05:32 06:07 11:23 WBC (4.50-10.00) X 10*3/uL RBC (4.40-5.60) X 10*6/uL Hgb (13.0-17.0) g/dL Hct (39.6-50.0) % MCV (80.0-97.0) FL MCH (27.0-32.0) pg RDW (11.5-14.5) % Neutrophils # (Manual) (1.80-7.70) X 10*3/uL Lymphocytes # (Manual) (0.90-5.00) X 10*3/uL Eosinophils # (Manual) (0.04-0.35) X 10*3/uL Basophils # (Manual) (0.00-0.10) X 10*3/uL Macrocytosis (manual) Anion Gap 17.80 H (4.00-12.00) mmol/L BUN/Creatinine Ratio 23.29 H (12.00-20.00) Ratio Glucose 130 H (70-110) mg/dL POC Glucose (mg/dL) 137 H 154 H (70-110) mg/dL Calcium 7.7 L (8.7-10.3) mg/dL Magnesium 0.9 A* (1.5-2.4) mg/dL Microbiology - Last 24 Hours (Table) 10/03/23 17:20 Blood Culture - Final Blood 09/28/23 08:30 Acid Fast Bacilli Smear - Preliminary Bronchoalviolar Lavage - Right Acid Fast Bacilli Culture - Preliminary Assessment and Plan (1) Allergy to multiple antibiotics Current Visit: Yes Status: Acute Code(s): Z88.1 - ALLERGY STATUS TO OTHER ANTIBIOTIC AGENTS SNOMED Code(s): 489703983 (2) Leukocytosis Current Visit: Yes Status: Acute Code(s): D72.829 - ELEVATED WHITE BLOOD CELL COUNT, UNSPECIFIED SNOMED Code(s): 353858957 (3) Leg wound, right Current Visit: Yes Status: Acute Code(s): S81.801A - UNSPECIFIED OPEN WOUND, RIGHT LOWER LEG, INITIAL ENCOUNTER SNOMED Code(s): 33403887001347446 Plan: 1patient presented to hospital with mental status changes possibly fentanyl overdose patches has been removed patient also have chronic nonhealing wound to the right leg which has been there for many years with exposed hardware and likely concerning for osteomyelitis patient wound has increased in size compared to 2-year ago when I saw the patient last with the hardware exposed and highly suspicious for possible osteomyelitis . 2local wound culture currently growing MRSA and bacteroids patient did have elevated sed rate of 85 3patient with multiple antibiotic ALLERGIES that would limit the number of antibiotic safe to use. 4patient benefit from removal of the infected hardware in the wound bed in order to completely heal this infection x-rays were reviewed with the family as well as with the radiologist and more likely the upper screw that is visible case has been discussed with orthopedics patient was evaluated and currently waiting for tomorrow of the hardware 5patient noticed to have some worsening of his white count as well as respiratory status with a question of possible aspiration pneumonitis we will discontinue daptomycin start the patient on vancomycin and cefepime continue with the Flagyl Dictation was produced using [employer] software. please excuse any grammatical, word or spelling errors. Time with Patient: Less than 30
--- NOTE | 2023-10-11 22:21 | P.PN ---
Subjective Progress Note Date: 10/10/23 Principal diagnosis: Reason for follow-up is right leg wound and osteomyelitis The patient is a 73-year-old male with a past medical history significant for diabetes mellitus hypertension hyperlipidemia coronary disease prostate disorder, patient did have a history of previous injury to the right leg requiring operative repair with hardware and has been dealing with a nonhealing wound to the right anterior leg for few years presented to hospital mental status changes possible overdose on fentanyl patch with a worsening wound to the right leg prompting this consultation. On today's evaluation that is 10/10/2023, Patient did have a low-grade fever 100.1 F this morning the patient is afebrile since then patient is breathing comfortably currently on a 4 L nasal cannula oxygen patient mention feeling better denies any chest pain occasional cough no nausea no vomiting no abdominal pain no diarrhea. Patient white count 27.03 creatinine 0.9 Objective - Vital Signs Vital signs: Vital Signs Temp 98.1 F 10/11/23 19:55 Pulse 100 10/11/23 20:42 Resp 22 10/11/23 19:55 BP 125/62 10/11/23 19:55 Pulse Ox 97 10/11/23 19:55 FiO2 30 10/04/23 11:57 Intake & Output 10/11/23 10/11/23 10/12/23 06:59 18:59 06:59 Intake Total 10 Output Total 1999 3174 Balance -1999 10 Weight 84.9 kg 84.9 kg Intake: IV 10 Invasive Line 10 10 Output: Urine 1999 3174 Other: Voiding Method Indwelling Catheter Indwelling Catheter Indwelling Catheter ABP, PAP, CO, CI - Last Documented Arterial Blood Pressure 118/42 - Exam GENERAL DESCRIPTION: An elderly male lying in bed in no distress RESPIRATORY SYSTEM: Unlabored breathing , decreased breath sounds at bases HEART: S1 S2 regular rate and rhythm , ABDOMEN: Soft , no tenderness EXTREMITIES: Right leg wound is currently dressed no drainage on the dressing - Labs CBC & Chem 7: 10/11/23 11:28 10/11/23 11:28 Labs: Abnormal Lab Results - Last 24 Hours (Table) 10/11/23 10/11/23 10/11/23 Range/Units 00:56 06:12 10:13 WBC 11.6 H (3.8-10.6) k/uL RBC 2.72 L (4.30-5.90) m/uL Hgb 9.0 L (13.0-17.5) gm/dL Hct 27.9 L (39.0-53.0) % MCV 102.5 H (80.0-100.0) fL Neutrophils # 9.8 H (1.3-7.7) k/uL Lymphocytes # 0.8 L (1.0-4.8) k/uL INR (<1.2) APTT (22.0-30.0) sec ABG pO2 (83-108) mmHg ABG HCO3 (21-25) mmol/L ABG Total CO2 (19-24) mmol/L Sodium (137-145) mmol/L Potassium (3.5-5.1) mmol/L BUN (9-20) mg/dL Glucose (74-99) mg/dL POC Glucose (mg/dL) 181 H 154 H (70-110) mg/dL Calcium (8.4-10.2) mg/dL Magnesium (1.6-2.3) mg/dL Troponin I (0.000-0.034) ng/mL Total Protein (6.3-8.2) g/dL Albumin (3.5-5.0) g/dL 10/11/23 10/11/23 10/11/23 Range/Units 10:13 10:57 11:28 WBC 11.3 H (3.8-10.6) k/uL RBC 2.63 L (4.30-5.90) m/uL Hgb 8.8 L (13.0-17.5) gm/dL Hct 27.2 L (39.0-53.0) % MCV 103.3 H (80.0-100.0) fL Neutrophils # 9.3 H (1.3-7.7) k/uL Lymphocytes # 0.8 L (1.0-4.8) k/uL INR (<1.2) APTT (22.0-30.0) sec ABG pO2 (83-108) mmHg ABG HCO3 (21-25) mmol/L ABG Total CO2 (19-24) mmol/L Sodium 135 L (137-145) mmol/L Potassium 3.1 L (3.5-5.1) mmol/L BUN 23 H (9-20) mg/dL Glucose 192 H (74-99) mg/dL POC Glucose (mg/dL) 237 H (70-110) mg/dL Calcium 6.8 L (8.4-10.2) mg/dL Magnesium 1.3 L (1.6-2.3) mg/dL Troponin I (0.000-0.034) ng/mL Total Protein (6.3-8.2) g/dL Albumin (3.5-5.0) g/dL 10/11/23 10/11/23 10/11/23 Range/Units 11:28 11:28 11:28 WBC (3.8-10.6) k/uL RBC (4.30-5.90) m/uL Hgb (13.0-17.5) gm/dL Hct (39.0-53.0) % MCV (80.0-100.0) fL Neutrophils # (1.3-7.7) k/uL Lymphocytes # (1.0-4.8) k/uL INR 1.2 H (<1.2) APTT 31.5 H (22.0-30.0) sec ABG pO2 (83-108) mmHg ABG HCO3 (21-25) mmol/L ABG Total CO2 (19-24) mmol/L Sodium 135 L (137-145) mmol/L Potassium 3.2 L (3.5-5.1) mmol/L BUN 25 H (9-20) mg/dL Glucose 198 H (74-99) mg/dL POC Glucose (mg/dL) (70-110) mg/dL Calcium 6.9 L (8.4-10.2) mg/dL Magnesium (1.6-2.3) mg/dL Troponin I 0.490 H* (0.000-0.034) ng/mL Total Protein 5.4 L (6.3-8.2) g/dL Albumin 2.4 L (3.5-5.0) g/dL 10/11/23 10/11/23 10/11/23 Range/Units 13:08 17:14 20:23 WBC (3.8-10.6) k/uL RBC (4.30-5.90) m/uL Hgb (13.0-17.5) gm/dL Hct (39.0-53.0) % MCV (80.0-100.0) fL Neutrophils # (1.3-7.7) k/uL Lymphocytes # (1.0-4.8) k/uL INR (<1.2) APTT (22.0-30.0) sec ABG pO2 74 L (83-108) mmHg ABG HCO3 31 H (21-25) mmol/L ABG Total CO2 33 H (19-24) mmol/L Sodium (137-145) mmol/L Potassium (3.5-5.1) mmol/L BUN (9-20) mg/dL Glucose (74-99) mg/dL POC Glucose (mg/dL) 187 H 187 H (70-110) mg/dL Calcium (8.4-10.2) mg/dL Magnesium (1.6-2.3) mg/dL Troponin I (0.000-0.034) ng/mL Total Protein (6.3-8.2) g/dL Albumin (3.5-5.0) g/dL Microbiology - Last 24 Hours (Table) 10/09/23 16:35 Blood Culture - Preliminary Blood Assessment and Plan (1) Allergy to multiple antibiotics Current Visit: Yes Status: Acute Code(s): Z88.1 - ALLERGY STATUS TO OTHER ANTIBIOTIC AGENTS SNOMED Code(s): 845293213 (2) Leukocytosis Current Visit: Yes Status: Acute Code(s): D72.829 - ELEVATED WHITE BLOOD CELL COUNT, UNSPECIFIED SNOMED Code(s): 907738861 (3) Leg wound, right Current Visit: Yes Status: Acute Code(s): S81.801A - UNSPECIFIED OPEN WOUND, RIGHT LOWER LEG, INITIAL ENCOUNTER SNOMED Code(s): 20934366901150789 Plan: 1patient presented to hospital with mental status changes possibly fentanyl ov erdose patches has been removed patient also have chronic nonhealing wound to the right leg which has been there for many years with exposed hardware and likely concerning for osteomyelitis patient wound has increased in size compared to 2-year ago when I saw the patient last with the hardware exposed and highly suspicious for possible osteomyelitis . 2local wound culture currently growing MRSA and bacteroids patient did have elevated sed rate of 85 3patient with multiple antibiotic ALLERGIES that would limit the number of antibiotic safe to use. 4patient benefit from removal of the infected hardware in the wound bed in order to completely heal this infection x-rays were reviewed with the family as well as with the radiologist and more likely the upper screw that is visible case has been discussed with orthopedics patient was evaluated and currently waiting for tomorrow of the hardware 5patient seem to have chronic leg improvement compared to yesterday is more awake and alert white count still up blood cultures are pending continue with the vancomycin cefepime and Flagyl and monitor clinical course closely Dictation was produced using [employer] dictation software. please excuse any grammatical, word or spelling errors. Time with Patient: Less than 30
--- NOTE | 2023-10-11 22:22 | P.PN ---
Subjective Progress Note Date: 10/11/23 Principal diagnosis: Reason for follow-up is right leg wound and osteomyelitis The patient is a 73-year-old male with a past medical history significant for diabetes mellitus hypertension hyperlipidemia coronary disease prostate disorder, patient did have a history of previous injury to the right leg requiring operative repair with hardware and has been dealing with a nonhealing wound to the right anterior leg for few years presented to hospital mental status changes possible overdose on fentanyl patch with a worsening wound to the right leg prompting this consultation. On today's evaluation that is 10/11/2023, patient did have a low-grade fever 100.3 F this morning patient is afebrile since then, the patient seems to be doing well this morning subsequently noticed to having significant change in his mentation and become unresponsive patient was hemodynamically stable did respond to sternal rub no vomiting diarrhea or any other changes reported by the nursing staff. Patient white count did come down to 11.3 creatinine 0.80 blood culture repeat currently pending Objective - Vital Signs Vital signs: Vital Signs Temp 100.3 F H 10/11/23 11:00 Pulse 108 H 10/11/23 11:00 Resp 32 H 10/11/23 11:00 BP 109/64 10/11/23 11:00 Pulse Ox 96 10/11/23 07:58 FiO2 30 10/04/23 11:57 Intake & Output 10/10/23 10/11/23 10/11/23 18:59 06:59 18:59 Intake Total 850 Output Total 200 2000 1700 Balance 650 -2000 -1700 Weight 84.9 kg Intake: Oral 850 Output: Urine 200 2000 1700 Other: Voiding Method Indwelling Catheter Indwelling Catheter ABP, PAP, CO, CI - Last Documented Arterial Blood Pressure 118/42 - Exam GENERAL DESCRIPTION: An elderly male lying in bed in no distress RESPIRATORY SYSTEM: Unlabored breathing , decreased breath sounds at bases HEART: S1 S2 regular rate and rhythm , ABDOMEN: Soft , no tenderness EXTREMITIES: Right leg wound is currently dressed no drainage on the dressing - Labs CBC & Chem 7: 10/11/23 11:28 10/11/23 11:28 Labs: Abnormal Lab Results - Last 24 Hours (Table) 10/10/23 10/11/23 10/11/23 Range/Units 16:35 00:56 06:12 WBC (3.8-10.6) k/uL RBC (4.30-5.90) m/uL Hgb (13.0-17.5) gm/dL Hct (39.0-53.0) % MCV (80.0-100.0) fL Neutrophils # (1.3-7.7) k/uL Lymphocytes # (1.0-4.8) k/uL INR (<1.2) APTT (22.0-30.0) sec Sodium (137-145) mmol/L Potassium (3.5-5.1) mmol/L BUN (9-20) mg/dL Glucose (74-99) mg/dL POC Glucose (mg/dL) 239 H 181 H 154 H (70-110) mg/dL Calcium (8.4-10.2) mg/dL Magnesium (1.6-2.3) mg/dL Troponin I (0.000-0.034) ng/mL Total Protein (6.3-8.2) g/dL Albumin (3.5-5.0) g/dL 10/11/23 10/11/23 10/11/23 Range/Units 10:13 10:13 10:57 WBC 11.6 H (3.8-10.6) k/uL RBC 2.72 L (4.30-5.90) m/uL Hgb 9.0 L (13.0-17.5) gm/dL Hct 27.9 L (39.0-53.0) % MCV 102.5 H (80.0-100.0) fL Neutrophils # 9.8 H (1.3-7.7) k/uL Lymphocytes # 0.8 L (1.0-4.8) k/uL INR (<1.2) APTT (22.0-30.0) sec Sodium 135 L (137-145) mmol/L Potassium 3.1 L (3.5-5.1) mmol/L BUN 23 H (9-20) mg/dL Glucose 192 H (74-99) mg/dL POC Glucose (mg/dL) 237 H (70-110) mg/dL Calcium 6.8 L (8.4-10.2) mg/dL Magnesium 1.3 L (1.6-2.3) mg/dL Troponin I (0.000-0.034) ng/mL Total Protein (6.3-8.2) g/dL Albumin (3.5-5.0) g/dL 10/11/23 10/11/23 10/11/23 Range/Units 11:28 11:28 11:28 WBC 11.3 H (3.8-10.6) k/uL RBC 2.63 L (4.30-5.90) m/uL Hgb 8.8 L (13.0-17.5) gm/dL Hct 27.2 L (39.0-53.0) % MCV 103.3 H (80.0-100.0) fL Neutrophils # 9.3 H (1.3-7.7) k/uL Lymphocytes # 0.8 L (1.0-4.8) k/uL INR 1.2 H (<1.2) APTT 31.5 H (22.0-30.0) sec Sodium 135 L (137-145) mmol/L Potassium 3.2 L (3.5-5.1) mmol/L BUN 25 H (9-20) mg/dL Glucose 198 H (74-99) mg/dL POC Glucose (mg/dL) (70-110) mg/dL Calcium 6.9 L (8.4-10.2) mg/dL Magnesium (1.6-2.3) mg/dL Troponin I (0.000-0.034) ng/mL Total Protein 5.4 L (6.3-8.2) g/dL Albumin 2.4 L (3.5-5.0) g/dL 10/11/23 Range/Units 11:28 WBC (3.8-10.6) k/uL RBC (4.30-5.90) m/uL Hgb (13.0-17.5) gm/dL Hct (39.0-53.0) % MCV (80.0-100.0) fL Neutrophils # (1.3-7.7) k/uL Lymphocytes # (1.0-4.8) k/uL INR (<1.2) APTT (22.0-30.0) sec Sodium (137-145) mmol/L Potassium (3.5-5.1) mmol/L BUN (9-20) mg/dL Glucose (74-99) mg/dL POC Glucose (mg/dL) (70-110) mg/dL Calcium (8.4-10.2) mg/dL Magnesium (1.6-2.3) mg/dL Troponin I 0.490 H* (0.000-0.034) ng/mL Total Protein (6.3-8.2) g/dL Albumin (3.5-5.0) g/dL Microbiology - Last 24 Hours (Table) 10/09/23 16:35 Blood Culture - Preliminary Blood Assessment and Plan (1) Allergy to multiple antibiotics Current Visit: Yes Status: Acute Code(s): Z88.1 - ALLERGY STATUS TO OTHER ANTIBIOTIC AGENTS SNOMED Code(s): 320565246 (2) Leukocytosis Current Visit: Yes Status: Acute Code(s): D72.829 - ELEVATED WHITE BLOOD CELL COUNT, UNSPECIFIED SNOMED Code(s): 616930125 (3) Leg wound, right Current Visit: Yes Status: Acute Code(s): S81.801A - UNSPECIFIED OPEN WOUND, RIGHT LOWER LEG, INITIAL ENCOUNTER SNOMED Code(s): 93472261842036451 Plan: 1patient presented to hospital with mental status changes possibly fentanyl overdose patches has been removed patient also have chronic nonhealing wound to the right leg which has been there for many years with exposed hardware and likely concerning for osteomyelitis patient wound has increased in size compared to 2-year ago when I saw the patient last with the hardware exposed and highly suspicious for possible osteomyelitis . 2local wound culture currently growing MRSA and bacteroids patient did have elevated sed rate of 85 3patient with multiple antibiotic ALLERGIES that would limit the number of antibiotic safe to use. 4patient benefit from removal of the infected hardware in the wound bed in order to completely heal this infection x-rays were reviewed with the family as well as with the radiologist and more likely the upper screw that is visible case has been discussed with orthopedics patient was evaluated and currently waiting for tomorrow of the hardware 5patient did have improvement in the white count however significant change in mentation questionable CVA/TIA neurology consulted for now continue with the vancomycin cefepime and Flagyl daughter at the bedside questions Answered Dictation was produced using [employer] dictation software. please excuse any grammatical, word or spelling errors. Time with Patient: Less than 30
[2023-10-11] MEDS: POTASSIUM CHLORIDE ER 20 MEQ TAB.ER PO SCH (22:42)
[2023-10-12 01:34] LABS: Glucose,Whole Blood 206 mg/dL (70-110)
[2023-10-12] MEDS: VANCOMYCIN TROUGH DUE 1 EACH MISC MISCELLANE ONE (05:48)
[2023-10-12 05:59] LABS: Glucose,Whole Blood 173 mg/dL (70-110)
[2023-10-12 06:34] LABS: African American GFR (CKD) >90 (>60 ml/min/1.73 sqM); Non-African American GFR(CKD) >90 (>60 ml/min/1.73 sqM)
[2023-10-12] MEDS: FUROSEMIDE 10 MG/ML 4 ML VIAL IV SCH ×2 (09:30→17:40)
[2023-10-12] MEDS: METOPROLOL TARTRATE 25 MG TAB PO SCH (09:31)
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
[2023-10-12 10:22] LABS: Chol/HDL Ratio 3.34 Ratio; LDL Cholesterol,Calculated 66.8 mg/dL (0.0-131.0); VLDL Calculation 18.02 mg/dL (5.00-40.00)
--- NOTE | 2023-10-12 10:22 | XR ---
EXAMINATION TYPE: XR chest 1V portable DATE OF EXAM: 10/12/2023 COMPARISON: 10/09/2023 HISTORY: Shortness of breath TECHNIQUE: Single frontal view of the chest is obtained. FINDINGS: There is no focal air space opacity, pleural effusion, or pneumothorax seen. The cardiac s ilhouette size is within normal limits. The osseous structures are intact. ET and NG tube and central line has been removed. Diffuse bilateral infiltrate and small effusion. Chronic rib deformities on the left are noted. Arthropathy of the shoulders, osteopenia and degenerat aime change of the spine. Previous trauma to the left clavicle. Postsurgical changes cervical spine. N o sizable pneumothorax. Heart is enlarged and there is median sternotomy changes. A chronic appearing deformity of the left scapula likely related to trauma. IMPRESSION: Diffuse bilateral infiltrate consolidation with pleural effusion. No significant interva l change. Could represent diffuse pneumonia, pulmonary edema or ARDS.
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
--- NOTE | 2023-10-12 11:45 | P.PN ---
Subjective HISTORY OF PRESENT ILLNESS: The patient is a 73-year-old male with past medical history of hypertension, diabetes, dyslipidemia, coronary artery disease status post CABG with KAUFMAN to LAD and venous graft to OM 1 and 2. Echocardiogram revealed mildly reduced LV function at 40% with anterior wall hypokinesis as well as moderate to severe aortic stenosis. Cardiology was initially consulted for aortic stenosis. Cardiology has signed off the case back on 10/01. We have been reconsulted for urgent evaluation of cardiomyopathy and tachycardia. Blood pressure 125/63, heart rate was in the 120s, afebrile, pulse ox 90% - 96% on 4 L nasal cannula. Temperature max has been 100.3 axillary.. Patient was found to have mental status changes this morning and A-Team was called followed by Stroke Team and patient underwent stat CAT scan of the brain which was unremarkable is well as CTA of the head and neck. CTA revealed possible stenosis of the origin left common carotid artery, severe greater than 75% stenosis in the mid left common carotid artery and in the origin of the left internal carotid artery. Mild to moderate stenosis in the proximal right internal carotid artery. No significant occlusive disease, aneurysm or vascular malformation intracranially. Consults were added for neurology as well as vascular surgery. Most recent laboratory studies revealed WBC 11.6, hemoglobin 9. Creatinine 0.78. Yesterday potassium was 3.3 and magnesium 1.5. At the time of evaluation, heart rate is in the 90s. EKG was sinus tachycardia with right bundle branch block at 104 bpm. Current cardiac medications: Lasix 20 mg IV push every 12 hours, Lopressor 12.5 mg twice daily, potassium chloride. 10/12/2023 Patient examined this morning the bedside. Patient currently denies chest pain or pressure. He reports shortness of breath this morning. He remains on IV diuretics. Telemetry reveals sinus tachycardia with heart rate in the 120s. Blood pressure stable. PHYSICAL EXAM: VITAL SIGNS: Reviewed. GENERAL: Well-developed in no acute distress. NECK: Supple. No JVD or thyromegaly LUNGS: Respirations even and unlabored. Lungs with bilateral wheezing and bibasilar crackles HEART: Tachycardic. Regular rate and rhythm. S1 and S2 heard. Systolic murmur noted EXTREMITIES: Normal range of motion. No clubbing or cyanosis. Peripheral pulses intact. No lower extremity edema. Wound to right lower extremity ASSESSMENT: Suicide attempt with overdose on fentanyl patches Acute hypoxic respiratory failure quiring mechanical ventilation, since extubated Moderate to severe aortic stenosis Ischemic cardiomyopathy, EF 40 to 45% Sinus tachycardia Encephalopathy Hypertension Diabetes Dyslipidemia History of CAD with prior CABG Nonhealing wound to the right anterior leg, cultures positive for MSSA PLAN: Increase Lasix to 40 mg IV every 12 hours Daily weights, accurate intake and output, and monitoring of kidney function Increase metoprolol to 25 mg twice a day Continue additional cardiac medications Further recommendations pending patient course Nurse practitioner note has been reviewed by physician. Signing provider agrees with the documented findings, assessment, and plan of care documented by [employer]ER as a scribe. Objective - Vital Signs Vital signs: Vital Signs Temp 98.2 F 10/12/23 11:26 Pulse 117 H 10/12/23 11:26 Resp 28 H 10/12/23 11:26 BP 115/63 10/12/23 11:26 Pulse Ox 92 L 10/12/23 11:26 FiO2 30 10/04/23 11:57 Intake & Output 10/11/23 10/12/23 10/12/23 18:59 06:59 18:59 Intake Total 550 138 Output Total 3175 2350 1100 Balance -3755 -1800 -962 Weight 84.9 kg 86 kg Intake: IV 10 20 Invasive Line 10 10 10 Invasive Line 9 10 Oral 540 118 Output: Urine 3175 2350 1100 Uretheral (Terry) 550 Other: Voiding Method Indwelling Catheter Indwelling Catheter Indwelling Catheter ABP, PAP, CO, CI - Last Documented Arterial Blood Pressure 118/42 - Labs CBC & Chem 7: 10/11/23 11:28 10/12/23 05:34 Labs: Abnormal Lab Results - Last 24 Hours (Table) 10/11/23 10/11/23 10/11/23 Range/Units 11:28 11:28 11:28 WBC 11.3 H (3.8-10.6) k/uL RBC 2.63 L (4.30-5.90) m/uL Hgb 8.8 L (13.0-17.5) gm/dL Hct 27.2 L (39.0-53.0) % MCV 103.3 H (80.0-100.0) fL Neutrophils # 9.3 H (1.3-7.7) k/uL Lymphocytes # 0.8 L (1.0-4.8) k/uL INR 1.2 H (<1.2) APTT 31.5 H (22.0-30.0) sec ABG pO2 (83-108) mmHg ABG HCO3 (21-25) mmol/L ABG Total CO2 (19-24) mmol/L Sodium 135 L (137-145) mmol/L Potassium 3.2 L (3.5-5.1) mmol/L BUN 25 H (9-20) mg/dL Glucose 198 H (74-99) mg/dL POC Glucose (mg/dL) (70-110) mg/dL Calcium 6.9 L (8.4-10.2) mg/dL Troponin I (0.000-0.034) ng/mL Total Protein 5.4 L (6.3-8.2) g/dL Albumin 2.4 L (3.5-5.0) g/dL HDL Cholesterol (40.00-60.00) mg/dL 10/11/23 10/11/23 10/11/23 Range/Units 11:28 13:08 17:14 WBC (3.8-10.6) k/uL RBC (4.30-5.90) m/uL Hgb (13.0-17.5) gm/dL Hct (39.0-53.0) % MCV (80.0-100.0) fL Neutrophils # (1.3-7.7) k/uL Lymphocytes # (1.0-4.8) k/uL INR (<1.2) APTT (22.0-30.0) sec ABG pO2 74 L (83-108) mmHg ABG HCO3 31 H (21-25) mmol/L ABG Total CO2 33 H (19-24) mmol/L Sodium (137-145) mmol/L Potassium (3.5-5.1) mmol/L BUN (9-20) mg/dL Glucose (74-99) mg/dL POC Glucose (mg/dL) 187 H (70-110) mg/dL Calcium (8.4-10.2) mg/dL Troponin I 0.490 H* (0.000-0.034) ng/mL Total Protein (6.3-8.2) g/dL Albumin (3.5-5.0) g/dL HDL Cholesterol (40.00-60.00) mg/dL 10/11/23 10/11/23 10/12/23 Range/Units 20:23 23:45 05:34 WBC (3.8-10.6) k/uL RBC (4.30-5.90) m/uL Hgb (13.0-17.5) gm/dL Hct (39.0-53.0) % MCV (80.0-100.0) fL Neutrophils # (1.3-7.7) k/uL Lymphocytes # (1.0-4.8) k/uL INR (<1.2) APTT (22.0-30.0) sec ABG pO2 (83-108) mmHg ABG HCO3 (21-25) mmol/L ABG Total CO2 (19-24) mmol/L Sodium (137-145) mmol/L Potassium (3.5-5.1) mmol/L BUN (9-20) mg/dL Glucose (74-99) mg/dL POC Glucose (mg/dL) 187 H 206 H (70-110) mg/dL Calcium (8.4-10.2) mg/dL Troponin I (0.000-0.034) ng/mL Total Protein (6.3-8.2) g/dL Albumin (3.5-5.0) g/dL HDL Cholesterol 36.20 L (40.00-60.00) mg/dL 10/12/23 Range/Units 05:58 WBC (3.8-10.6) k/uL RBC (4.30-5.90) m/uL Hgb (13.0-17.5) gm/dL Hct (39.0-53.0) % MCV (80.0-100.0) fL Neutrophils # (1.3-7.7) k/uL Lymphocytes # (1.0-4.8) k/uL INR (<1.2) APTT (22.0-30.0) sec ABG pO2 (83-108) mmHg ABG HCO3 (21-25) mmol/L ABG Total CO2 (19-24) mmol/L Sodium (137-145) mmol/L Potassium (3.5-5.1) mmol/L BUN (9-20) mg/dL Glucose (74-99) mg/dL POC Glucose (mg/dL) 173 H (70-110) mg/dL Calcium (8.4-10.2) mg/dL Troponin I (0.000-0.034) ng/mL Total Protein (6.3-8.2) g/dL Albumin (3.5-5.0) g/dL HDL Cholesterol (40.00-60.00) mg/dL Microbiology - Last 24 Hours (Table) 10/09/23 16:35 Blood Culture - Preliminary Blood
[2023-10-12 12:01] LABS: Glucose,Whole Blood 220 mg/dL (70-110)
[2023-10-12] MEDS ORDERED: SENNOSIDES 8.6 MG TAB PO PRN (12:02)
--- NOTE | 2023-10-12 12:56 | MR ---
EXAMINATION TYPE: MR brain wo/w con DATE OF EXAM: 10/12/2023 12:47 PM COMPARISON: NONE HISTORY: Evaluate for CVA, hyperkalemia, ARUN, overdose, suicide. CONTRAST: Patient received 8 mL intravenous Gadavist gadolinium contrast. Multiplanar and multispin-echo imaging of the brain was performed . Pre and post contrast enhanced i mages are obtained. The ventricles, basal cisterns and sulci overlying the cerebral convexities are mildly enlarged. There is evidence of mild periventricular white matter ischemic demyelination. Remote deep white matter insults are also noted. No acute edema is seen on diffusion weighted imaging. There is no evidence for midline shift or mass effect. Acute intracranial hemorrhage or extra-axial collection is not evident. No enhancing lesions are seen. The paranasal sinuses are well-aerated. 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 IMPRESSION: Age-related atrophic and chronic small vessel ischemic change. No acute intracranial process at this time. No enhancing lesions are seen.
[2023-10-12 16:47] LABS: Glucose,Whole Blood 231 mg/dL (70-110)
--- NOTE | 2023-10-12 20:15 | EEG ---
ELECTROENCEPHALOGRAM REPORT PREAMBLE: This is a 73-year-old male with altered mental status. EEG FINDINGS: This is a 21-channel digital EEG recorded with video component, utilizing 10/20 international system with referential and bipolar montages. The recording starts with patient being asleep with presence of diffuse mixed delta and theta frequency rhythm with some sleep spindles. On alerting the patient, the patient has a fairly normal posterior dominant 9 to 10 hertz background alpha activity, reactive to eye opening and closing. Photic driving response was seen with some flash frequencies. During middle and later part of the study, the patient again went into stage 2 sleep. No focal or lateralized epileptiform activity was seen. IMPRESSION: This is a normal EEG during wakefulness, drowsiness, and stage 2 sleep. No focal, lateralized, or epileptiform activity was seen. MMODL / IJN: [id number] /
[2023-10-12] MEDS: ATORVASTATIN 40 MG TAB PO SCH (20:30)
[2023-10-12] MEDS: VANCOMYCIN 1,250 MG in SODIUM CHLORIDE 0.9% 250 ML IVPB SCH (22:30)
[2023-10-13 00:29] LABS: Glucose,Whole Blood 168 mg/dL (70-110)
[2023-10-13 06:27] LABS: Glucose,Whole Blood 176 mg/dL (70-110)
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
--- NOTE | 2023-10-13 07:53 | XR ---
EXAMINATION TYPE: XR chest 1V portable DATE OF EXAM: 10/13/2023 COMPARISON: 10/12/2023 HISTORY: Shortness of breath TECHNIQUE: Single frontal view of the chest is obtained. FINDINGS: The diffuse partially consolidated airspace opacities, right greater than left are unchanged compared to previous. There is no large pleural effusion. There is no pneumothorax. There is a remote healing fracture of the mid left clavicle. There is superior subluxation of the rig ht glenoid humeral joint consistent with chronic rotator cuff tear. IMPRESSION: 1. Acute cardiopulmonary disease with no interval change. 2. Chronic rotator cuff tear right shoulder. 3. partially healed left clavicle fracture.
[2023-10-13 08:12] LABS: Basophils # (A) 0.1 k/uL (0-0.2); Basophils % (A) 1 %; Eosinophils # (A) 0.3 k/uL (0-0.7); Eosinophils % (A) 3 %; HCT 33.9 % (39.0-53.0); HGB 10.5 gm/dL (13.0-17.5); Hypochromasia Moderate; Lymphocytes # (A) 1.1 k/uL (1.0-4.8); Lymphocytes % (A) 11 %; MCHC 30.9 g/dL (31.0-37.0); MCV 103.4 fL (80.0-100.0); Macrocytosis Slight; Mean Platelet Volume 9.3; Monocytes # (A) 0.6 k/uL (0-1.0); Monocytes % (A) 6 %; Neutrophils # (A) 7.5 k/uL (1.3-7.7); Neutrophils % (A) 77 %; Platelet Count 422 k/uL (150-450); RBC 3.28 m/uL (4.30-5.90); RDW 14.7 % (11.5-15.5); WBC 9.7 k/uL (3.8-10.6)
[2023-10-13 08:27] LABS: African American GFR (CKD) >90 (>60 ml/min/1.73 sqM); Anion Gap 5 mmol/L; Blood Urea Nitrogen 25 mg/dL (9-20); Calcium 7.7 mg/dL (8.4-10.2); Carbon Dioxide 28 mmol/L (22-30); Chloride 104 mmol/L (98-107); Glucose 197 mg/dL (74-99); Magnesium 1.2 mg/dL (1.6-2.3); Non-African American GFR(CKD) >90 (>60 ml/min/1.73 sqM); Potassium 4.3 mmol/L (3.5-5.1); Sodium 137 mmol/L (137-145)
--- NOTE | 2023-10-13 09:27 | P.PN ---
Subjective Progress Note Date: 10/13/23 This is a 73-year-old gentleman with coronary artery disease status post CABG and valvular heart disease known moderate to severe aortic stenosis as well as cardiomyopathy with a EF around 40% as well as multiple comorbid conditions was admitted to the hospital initially with suicidal attempt. We have been treating the patient for heart failure. October 13, 2023 The patient was seen and evaluated this morning. He is still hypoxic requiring oxygen. Hemodynamically he is stable but he still in mild sinus tachycardia with heart rate above 100 beats per minutes. Currently he is on Lasix IV and he is on metoprolol as well. Urine output has been adequate. Examination is remarkable for regular rhythm with a crescendo decrescendo murmur at right upper sternal border and diminished breathing sounds bilaterally and no edema was noted in the lower extremities Assessment Heart failure with reduced ejection fraction Sinus tachycardia CAD status post CABG Cardiomyopathy Multiple comorbid conditions Plan Continue the current dose of Lasix IV Continue monitor the kidney function and electrolytes Increase the dose of beta-noe Follow-up with the patient Objective - Vital Signs Vital signs: Vital Signs Temp 98.6 F 10/13/23 02:00 Pulse 84 10/13/23 02:00 Resp 16 10/13/23 02:00 BP 105/68 10/13/23 02:00 Pulse Ox 94 L 10/13/23 02:00 FiO2 30 10/04/23 11:57 Intake & Output 10/12/23 10/13/23 10/13/23 18:59 06:59 18:59 Intake Total 138 1080 358 Output Total 2200 350 Balance -2061 730 358 Weight 87 kg Intake: IV 20 Invasive Line 10 10 Invasive Line 9 10 Oral 118 1080 358 Output: Urine 2200 350 Other: Voiding Method Toilet Toilet Urinal Urinal Incontinent Incontinent # Voids 1 ABP, PAP, CO, CI - Last Documented Arterial Blood Pressure 118/42 - Labs CBC & Chem 7: 10/13/23 07:41 10/13/23 07:41 Labs: Abnormal Lab Results - Last 24 Hours (Table) 10/12/23 10/12/23 10/12/23 Range/Units 05:34 11:59 16:45 RBC (4.30-5.90) m/uL Hgb (13.0-17.5) gm/dL Hct (39.0-53.0) % MCV (80.0-100.0) fL MCHC (31.0-37.0) g/dL BUN (9-20) mg/dL Glucose (74-99) mg/dL POC Glucose (mg/dL) 220 H 231 H (70-110) mg/dL Calcium (8.4-10.2) mg/dL Magnesium (1.6-2.3) mg/dL HDL Cholesterol 36.20 L (40.00-60.00) mg/dL 10/13/23 10/13/23 10/13/23 Range/Units 00:27 06:26 07:41 RBC 3.28 L (4.30-5.90) m/uL Hgb 10.5 L (13.0-17.5) gm/dL Hct 33.9 L (39.0-53.0) % MCV 103.4 H (80.0-100.0) fL MCHC 30.9 L (31.0-37.0) g/dL BUN (9-20) mg/dL Glucose (74-99) mg/dL POC Glucose (mg/dL) 168 H 176 H (70-110) mg/dL Calcium (8.4-10.2) mg/dL Magnesium (1.6-2.3) mg/dL HDL Cholesterol (40.00-60.00) mg/dL 10/13/23 Range/Units 07:41 RBC (4.30-5.90) m/uL Hgb (13.0-17.5) gm/dL Hct (39.0-53.0) % MCV (80.0-100.0) fL MCHC (31.0-37.0) g/dL BUN 25 H (9-20) mg/dL Glucose 197 H (74-99) mg/dL POC Glucose (mg/dL) (70-110) mg/dL Calcium 7.7 L (8.4-10.2) mg/dL Magnesium 1.2 L (1.6-2.3) mg/dL HDL Cholesterol (40.00-60.00) mg/dL Microbiology - Last 24 Hours (Table) 10/09/23 16:35 Blood Culture - Preliminary Blood 09/28/23 08:30 Fungal Culture - Preliminary Bronchoalviolar Lavage - Right
[2023-10-13] MEDS: MAGNESIUM SULFATE-D5W PMX 1 GM in DEXTROSE/WATER 1 100ML.BAG IVPB SCH (10:00)
[2023-10-13] MEDS: METOPROLOL TARTRATE 50 MG TAB PO SCH (10:01)
--- NOTE | 2023-10-13 10:27 | P.PN ---
Subjective Progress Note Date: 10/12/23 Patient was seen for a follow-up. Patient complaining of burning in the eyes. All neurological symptoms have resolved. Patient's daughter was also present. Objective - Vital Signs Vital signs: Vital Signs Temp 98.2 F 10/12/23 11:26 Pulse 117 H 10/12/23 11:26 Resp 28 H 10/12/23 11:26 BP 115/63 10/12/23 11:26 Pulse Ox 92 L 10/12/23 11:26 FiO2 30 10/04/23 11:57 Intake & Output 10/11/23 10/12/23 10/12/23 18:59 06:59 18:59 Intake Total 550 138 Output Total 3175 2350 1750 Balance -3175 -1800 -1612 Weight 84.9 kg 86 kg Intake: IV 10 20 Invasive Line 10 10 10 Invasive Line 9 10 Oral 540 118 Output: Urine 3175 2350 1750 Uretheral (Terry) 550 Other: Voiding Method Indwelling Catheter Indwelling Catheter Toilet Urinal Incontinent ABP, PAP, CO, CI - Last Documented Arterial Blood Pressure 118/42 - Exam Mental status, speech and language functions are normal. Cranial nerves are normal visual wright are full. Face is symmetric. Muscle strength testing there is no pronator drift. Strength is equal. He has shoulder issues from arthritis or rotator cuff problems. No extremity is a normal. Sensory is equ al. No ataxia. - Labs CBC & Chem 7: 10/13/23 07:41 10/13/23 07:41 Labs: Abnormal Lab Results - Last 24 Hours (Table) 10/11/23 10/11/23 10/11/23 Range/Units 17:14 20:23 23:45 POC Glucose (mg/dL) 187 H 187 H 206 H (70-110) mg/dL HDL Cholesterol (40.00-60.00) mg/dL 10/12/23 10/12/23 10/12/23 Range/Units 05:34 05:58 11:59 POC Glucose (mg/dL) 173 H 220 H (70-110) mg/dL HDL Cholesterol 36.20 L (40.00-60.00) mg/dL Microbiology - Last 24 Hours (Table) 10/09/23 16:35 Blood Culture - Preliminary Blood Assessment and Plan Assessment: * Acute encephalopathy, completely dissolved. Exact etiology unclear. Rule out septic/toxic metabolic encephalopathy. CVA ruled out. Rule out TIA. Current NIH stroke scale is 0. * Severe left, greater than 75% stenosis left mid common carotid artery and in the origin of the left ICA. This could be potentially symptomatic. CVA could be related to left ICA stenosis, and septic emboli also possibility with evidence of acute wound infection, and fever 100.3. * Admission to the hospital for altered mental status and accidental fentanyl overdose. * Left ICA stenosis severe, greater than 75% in the mid left common carotid artery and in the origin of the left ICA (per CTA report). * Status post extubation 10/04/2023. 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 * Acute kidney injury * Metabolic acidosis * Acute systolic congestive heart failure with EF 40%. * Moderate to severe aortic stenosis. * CAD with history of bypass grafting 2009. * Hypertension * Diabetes * Hyperlipidemia * Noncompliance with medication. Plan: * Patient has acute encephalopathy, unclear cause. Rule out septic or toxic metabolic encephalopathy versus TIA. Acute stroke ruled out. * CTA of the head and neck was done, which revealed possible significant stenosis of the origin left common carotid artery. Severe greater than 75% hemodynamically significant stenosis in the mid left common carotid artery and in the origin of the left internal carotid artery. Mild to moderate stenosis in the proximal right ICA. No significant occlusive disease aneurysm or vascular malformation intracranially. * Vascular surgery input appreciated. * Carotid Doppler revealed findings suggestive of 50-69% stenosis involving the proximal right ICA with severe atherosclerotic plaque noted bilaterally. Antegrade flow in both vertebral arteries. Vascular surgery recommending medical management. Patient declining any vascular surgical intervention either. * MRI of the brain, revealed age-related atrophic and chronic small vessel ischemic change. No acute intracranial process at this time. No enhancing lesions are seen. I personally reviewed MR agree with the findings. * 2D echo performed 09/28/2023 revealed LVEF 40%. Moderate MR, moderate to severe aortic stenosis. Consider MAGGIE. * Hemoglobin A1c 6.4 * Fasting lipid panel cholesterol 121, LDL 66, HDL 36, triglycerides 90. Start Lipitor 40 mg daily. * B12 335, homocystine 10.4, RBC folate 509. TSH 3.73. Ammonia is normal 13. Start B12 replacement. * Telemetry monitoring, rule out arrhythmia. * EEG was normal during wakefulness, drowsiness and stage II sleep. No focal, lateralized or epileptiform activity was seen. * Continue neurochecks. * Start aspirin regimen of 325 mg daily. * DVT prophylaxis: Patient on heparin 5000 units subcu every 8 hours. * Other medical management as per IM and other specialties on board. Patient on cefepime 2 g every 8 hours and vancomycin for wound infection.
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
[2023-10-13 11:35] LABS: Glucose,Whole Blood 274 mg/dL (70-110)
--- NOTE | 2023-10-13 13:52 | P.PN ---
Subjective Progress Note Date: 10/13/23 Principal diagnosis: Reason for follow-up is right leg wound and osteomyelitis The patient is a 73-year-old male with a past medical history significant for diabetes mellitus hypertension hyperlipidemia coronary disease prostate disorder, patient did have a history of previous injury to the right leg requiring operative repair with hardware and has been dealing with a nonhealing wound to the right anterior leg for few years presented to hospital mental status changes possible overdose on fentanyl patch with a worsening wound to the right leg prompting this consultation. On today's evaluation that is 10/13/2023,the patient did have a low-grade fever 100.4 last night the patient is afebrile this morning, patient is breathing comfortably on 1 L nasal cannula oxygen, the patient denies chest pain shortness of breath patient did have a cough and has been Sputum Mention He Was Able to Provide a Sample Last Night, patient denies abdominal pain, no nausea vomiting or diarrhea. Patient white count normalized to 9.7 creatinine 0.7 5 repeat blood and sputum cultures currently pending Objective - Vital Signs Vital signs: Vital Signs Temp 98.3 F 10/13/23 11:18 Pulse 111 H 10/13/23 11:18 Resp 28 H 10/13/23 11:18 BP 108/69 10/13/23 11:18 Pulse Ox 94 L 10/13/23 11:18 FiO2 30 10/04/23 11:57 Intake & Output 10/12/23 10/13/23 10/13/23 18:59 06:59 18:59 Intake Total 138 1080 378 Output Total 2200 350 Balance 730 378 Weight 87 kg Intake: IV 20 20 Invasive Line 10 10 10 Invasive Line 9 10 10 Oral 118 1080 358 Output: Urine 2200 350 Other: Voiding Method Toilet Toilet Toilet Urinal Urinal Urinal Incontinent Incontinent Incontinent # Voids 1 ABP, PAP, CO, CI - Last Documented Arterial Blood Pressure 118/42 - Exam GENERAL DESCRIPTION: An elderly male lying in bed in no distress RESPIRATORY SYSTEM: Unlabored breathing , decreased breath sounds at bases HEART: S1 S2 regular rate and rhythm , ABDOMEN: Soft , no tenderness EXTREMITIES: Right leg wound is currently dressed no drainage on the dressing - Labs CBC & Chem 7: 10/13/23 07:41 10/13/23 07:41 Labs: Abnormal Lab Results - Last 24 Hours (Table) 07/26/24 07/26/24 07/27/24 Range/Units 11:59 16:45 00:27 RBC (4.30-5.90) m/uL Hgb (13.0-17.5) gm/dL Hct (39.0-53.0) % MCV (80.0-100.0) fL MCHC (31.0-37.0) g/dL BUN (9-20) mg/dL Glucose (74-99) mg/dL POC Glucose (mg/dL) 220 H 231 H 168 H (70-110) mg/dL Calcium (8.4-10.2) mg/dL Magnesium (1.6-2.3) mg/dL 10/13/23 10/13/23 10/13/23 Range/Units 06:26 07:41 07:41 RBC 3.28 L (4.30-5.90) m/uL Hgb 10.5 L (13.0-17.5) gm/dL Hct 33.9 L (39.0-53.0) % MCV 103.4 H (80.0-100.0) fL MCHC 30.9 L (31.0-37.0) g/dL BUN 25 H (9-20) mg/dL Glucose 197 H (74-99) mg/dL POC Glucose (mg/dL) 176 H (70-110) mg/dL Calcium 7.7 L (8.4-10.2) mg/dL Magnesium 1.2 L (1.6-2.3) mg/dL 10/13/23 Range/Units 11:33 RBC (4.30-5.90) m/uL Hgb (13.0-17.5) gm/dL Hct (39.0-53.0) % MCV (80.0-100.0) fL MCHC (31.0-37.0) g/dL BUN (9-20) mg/dL Glucose (74-99) mg/dL POC Glucose (mg/dL) 274 H (70-110) mg/dL Calcium (8.4-10.2) mg/dL Magnesium (1.6-2.3) mg/dL Microbiology - Last 24 Hours (Table) 10/12/23 19:27 Gram Stain - Preliminary Sputum 10/09/23 16:35 Blood Culture - Preliminary Blood 09/28/23 08:30 Fungal Culture - Preliminary Bronchoalviolar Lavage - Right Assessment and Plan (1) Allergy to multiple antibiotics Current Visit: Yes Status: Acute Code(s): Z88.1 - ALLERGY STATUS TO OTHER ANTIBIOTIC AGENTS SNOMED Code(s): 491765898 (2) Leukocytosis Current Visit: Yes Status: Acute Code(s): D72.829 - ELEVATED WHITE BLOOD CELL COUNT, UNSPECIFIED SNOMED Code(s): 030731502 (3) Leg wound, right Current Visit: Yes Status: Acute Code(s): S81.801A - UNSPECIFIED OPEN WOUND, RIGHT LOWER LEG, INITIAL ENCOUNTER SNOMED Code(s): 87699292359189602 Plan: 1patient presented to hospital with mental status changes possibly fentanyl overdose patches has been removed patient also have chronic nonhealing wound to the right leg which has been there for many years with exposed hardware and likely concerning for osteomyelitis patient wound has increased in size compared to 2-year ago when I saw the patient last with the hardware exposed and highly suspicious for possible osteomyelitis . 2local wound culture currently growing MRSA and bacteroids patient did have elevated sed rate of 85 3patient with multiple antibiotic ALLERGIES that would limit the number of antibiotic safe to use. 4patient benefit from removal of the infected hardware in the wound bed in order to completely heal this infection x-rays were reviewed with the family as well as with the radiologist and more likely the upper screw that is visible case has been discussed with orthopedics patient was evaluated and was scheduled for removal of the hardware subsequently orthopedic has signed off 5patient did have slight worsening of his respiratory status also develop a fever concerning for possible aspiration pneumonitis blood and sputum culture currently pending 6- patient to continue vancomycin cefepime and Flagyl while waiting for the culture to finalize Dictation was produced using [employer] dictation software. please excuse any grammatical, word or spelling errors. Time with Patient: Less than 30
--- NOTE | 2023-10-13 13:52 | P.PN ---
Subjective Progress Note Date: 10/12/23 Principal diagnosis: Reason for follow-up is right leg wound and osteomyelitis The patient is a 73-year-old male with a past medical history significant for diabetes mellitus hypertension hyperlipidemia coronary disease prostate disorder, patient did have a history of previous injury to the right leg requiring operative repair with hardware and has been dealing with a nonhealing wound to the right anterior leg for few years presented to hospital mental status changes possible overdose on fentanyl patch with a worsening wound to the right leg prompting this consultation. On today's evaluation that is 10/12/2023 patient did have resolution of fever afebrile this morning patient is currently breathing comfortably on the 6 L nasal oxygen but denies any chest pain did have some cough not bringing up any sputum no abdominal pain or diarrhea. Patient did have a creatinine 0.75 no CBC was done today Objective - Vital Signs Vital signs: Vital Signs Temp 98.2 F 10/12/23 11:26 Pulse 117 H 10/12/23 11:26 Resp 28 H 10/12/23 11:26 BP 115/63 10/12/23 11:26 Pulse Ox 92 L 10/12/23 11:26 FiO2 30 10/04/23 11:57 Intake & Output 10/11/23 10/12/23 10/12/23 18:59 06:59 18:59 Intake Total 550 138 Output Total 3175 2350 1100 Balance -5443 -1800 -412 Weight 84.9 kg 86 kg Intake: IV 10 20 Invasive Line 10 10 10 Invasive Line 9 10 Oral 540 118 Output: Urine 3175 2350 1100 Uretheral (Terry) 550 Other: Voiding Method Indwelling Catheter Indwelling Catheter Indwelling Catheter ABP, PAP, CO, CI - Last Documented Arterial Blood Pressure 118/42 - Exam GENERAL DESCRIPTION: An elderly male lying in bed in no distress RESPIRATORY SYSTEM: Unlabored breathing , decreased breath sounds at bases HEART: S1 S2 regular rate and rhythm , ABDOMEN: Soft , no tenderness EXTREMITIES: Right leg wound is currently dressed no drainage on the dressing - Labs CBC & Chem 7: 10/13/23 07:41 10/13/23 07:41 Labs: Abnormal Lab Results - Last 24 Hours (Table) 10/11/23 10/11/23 10/11/23 Range/Units 11:28 11:28 11:28 INR 1.2 H (<1.2) APTT 31.5 H (22.0-30.0) sec ABG pO2 (83-108) mmHg ABG HCO3 (21-25) mmol/L ABG Total CO2 (19-24) mmol/L Sodium 135 L (137-145) mmol/L Potassium 3.2 L (3.5-5.1) mmol/L BUN 25 H (9-20) mg/dL Glucose 198 H (74-99) mg/dL POC Glucose (mg/dL) (70-110) mg/dL Calcium 6.9 L (8.4-10.2) mg/dL Troponin I 0.490 H* (0.000-0.034) ng/mL Total Protein 5.4 L (6.3-8.2) g/dL Albumin 2.4 L (3.5-5.0) g/dL HDL Cholesterol (40.00-60.00) mg/dL 10/11/23 10/11/23 10/11/23 Range/Units 13:08 17:14 20:23 INR (<1.2) APTT (22.0-30.0) sec ABG pO2 74 L (83-108) mmHg ABG HCO3 31 H (21-25) mmol/L ABG Total CO2 33 H (19-24) mmol/L Sodium (137-145) mmol/L Potassium (3.5-5.1) mmol/L BUN (9-20) mg/dL Glucose (74-99) mg/dL POC Glucose (mg/dL) 187 H 187 H (70-110) mg/dL Calcium (8.4-10.2) mg/dL Troponin I (0.000-0.034) ng/mL Total Protein (6.3-8.2) g/dL Albumin (3.5-5.0) g/dL HDL Cholesterol (40.00-60.00) mg/dL 10/11/23 10/12/23 10/12/23 Range/Units 23:45 05:34 05:58 INR (<1.2) APTT (22.0-30.0) sec ABG pO2 (83-108) mmHg ABG HCO3 (21-25) mmol/L ABG Total CO2 (19-24) mmol/L Sodium (137-145) mmol/L Potassium (3.5-5.1) mmol/L BUN (9-20) mg/dL Glucose (74-99) mg/dL POC Glucose (mg/dL) 206 H 173 H (70-110) mg/dL Calcium (8.4-10.2) mg/dL Troponin I (0.000-0.034) ng/mL Total Protein (6.3-8.2) g/dL Albumin (3.5-5.0) g/dL HDL Cholesterol 36.20 L (40.00-60.00) mg/dL 10/12/23 Range/Units 11:59 INR (<1.2) APTT (22.0-30.0) sec ABG pO2 (83-108) mmHg ABG HCO3 (21-25) mmol/L ABG Total CO2 (19-24) mmol/L Sodium (137-145) mmol/L Potassium (3.5-5.1) mmol/L BUN (9-20) mg/dL Glucose (74-99) mg/dL POC Glucose (mg/dL) 220 H (70-110) mg/dL Calcium (8.4-10.2) mg/dL Troponin I (0.000-0.034) ng/mL Total Protein (6.3-8.2) g/dL Albumin (3.5-5.0) g/dL HDL Cholesterol (40.00-60.00) mg/dL Microbiology - Last 24 Hours (Table) 10/09/23 16:35 Blood Culture - Preliminary Blood Assessment and Plan (1) Allergy to multiple antibiotics Current Visit: Yes Status: Acute Code(s): Z88.1 - ALLERGY STATUS TO OTHER ANTIBIOTIC AGENTS SNOMED Code(s): 670431004 (2) Leukocytosis Current Visit: Yes Status: Acute Code(s): D72.829 - ELEVATED WHITE BLOOD CELL COUNT, UNSPECIFIED SNOMED Code(s): 823344285 (3) Leg wound, right Current Visit: Yes Status: Acute Code(s): S81.801A - UNSPECIFIED OPEN WOUND, RIGHT LOWER LEG, INITIAL ENCOUNTER SNOMED Code(s): 19562836036387678 Plan: 1patient presented to hospital with mental status changes possibly fentanyl overdose patches has been removed patient also have chronic nonhealing wound to the right leg which has been there for many years with exposed hardware and likely concerning for osteomyelitis patient wound has increased in size compared to 2-year ago when I saw the patient last with the hardware exposed and highly suspicious for possible osteomyelitis . 2local wound culture currently growing MRSA and bacteroids patient did have elevated sed rate of 85 3patient with multiple antibiotic ALLERGIES that would limit the number of antibiotic safe to use. 4patient benefit from removal of the infected hardware in the wound bed in order to completely heal this infection x-rays were reviewed with the family as well as with the radiologist and more likely the upper screw that is visible case has been discussed with orthopedics patient was evaluated and was scheduled for removal of the hardware subsequently orthopedic has signed off 5patient did have slight worsening of his respiratory status also develop a fever concerning for possible aspiration pneumonitis bloody sputum culture has been requested patient to continue vancomycin cefepime and Flagyl daughter at the bedside questions Answered Dictation was produced using [employer] dictation software. please excuse any grammatical, word or spelling errors. Time with Patient: Less than 30
--- NOTE | 2023-10-13 14:39 | PN ---
PROGRESS NOTE DATE OF SERVICE: 10/13/2023 SUBJECTIVE: This is a 73-year-old gentleman, who was admitted with multiple complex medical issues including hypoxic respiratory failure, apparently had aspiration pneumonia. The patient is being monitored in telemetry. The patient currently has significant shortness of breath. Chest x-ray showed worsening lesions. According to the patient wishes, hospice is also being arranged at this time. The family is aware and we had discussed with the family on multiple occasions regarding the diagnosis and prognosis implications. PAST MEDICAL HISTORY: Reviewed. REVIEW OF SYSTEMS: A 14-point review of systems is negative except as mentioned earlier. CURRENT MEDICATIONS: Reviewed include DuoNeb. PHYSICAL EXAMINATION: VITAL SIGNS: Pulse is 111, blood pressure 108/69, respirations 28. HEENT: Conjunctivae normal. CARDIOVASCULAR: S1, S2. RESPIRATIONS: Bilateral scattered rhonchi and crackles, expiratory wheezing. ABDOMEN: Soft. NERVOUS SYSTEM: Nonfocal. LABORATORY DATA: Reviewed. ASSESSMENT: 1. Congestive heart failure acute exacerbation with bilateral aspiration pneumonia with hemoptysis. 2. Carotid stenosis. 3. Change in mental status, metabolic encephalopathy. 4. Acute hypoxic respiratory failure. 5. Multiple complex medical issues. 6. No code. No CPR. No vent. 7. For hospice care. RECOMMENDATIONS: Recommend to continue current management and continue symptomatic treatment. Continue with comfort measures as mentioned earlier. It is the patient's wish to discontinue all the medications and obtain comfort measures. I would recommend hospice consultation. Multiple consultants notes are appreciated. Prognosis remain guarded. Discussed with the family. Further recommendations to follow. MMUMERL / AYLEENN: [id number] /
[2023-10-13 16:13] LABS: Glucose,Whole Blood 236 mg/dL (70-110)
[2023-10-13] MEDS: metroNIDAZOLE 500 MG TAB PO SCH (16:43)
[2023-10-14 00:06] LABS: Glucose,Whole Blood 207 mg/dL (70-110)
[2023-10-14 06:06] LABS: Glucose,Whole Blood 159 mg/dL (70-110)
--- NOTE | 2023-10-14 07:28 | P.PN ---
Subjective Progress Note Date: 10/14/23 This is a 73-year-old gentleman with coronary artery disease status post CABG and valvular heart disease known moderate to severe aortic stenosis as well as cardiomyopathy with a EF around 40% as well as multiple comorbid conditions was admitted to the hospital initially with suicidal attempt. We have been treating the patient for heart failure. October 13, 2023 The patient was seen and evaluated this morning. He is still hypoxic requiring oxygen. Hemodynamically he is stable but he still in mild sinus tachycardia with heart rate above 100 beats per minutes. Currently he is on Lasix IV and he is on metoprolol as well. Urine output has been adequate. Examination is remarkable for regular rhythm with a crescendo decrescendo murmur at right upper sternal border and diminished breathing sounds bilaterally and no edema was noted in the lower extremities October 14, 2023 The patient was seen this morning. He continues to be hypoxic on oxygen. He is on IV Lasix but he has been refusing the Lasix intermittently. No symptoms of chest pain or chest discomfort but shortness of breath. The examination is remarkable for regular rhythm with mild sinus tachycardia and systolic murmur at the right upper sternal border as well as bilateral rhonchi noted. Assessment Heart failure with reduced ejection fraction Sinus tachycardia which has improved CAD status post CABG Valvular heart disease with aortic stenosis Cardiomyopathy Multiple comorbid conditions Plan Continue the current dose of Lasix IV Continue monitor the kidney function and electrolytes Follow-up with the patient Objective - Vital Signs Vital signs: Vital Signs Temp 98.1 F 10/13/23 20:00 Pulse 85 10/14/23 02:00 Resp 18 10/14/23 02:00 BP 105/67 10/14/23 02:00 Pulse Ox 95 10/14/23 02:00 FiO2 30 10/04/23 11:57 Intake & Output 10/13/23 10/14/23 10/14/23 18:59 06:59 18:59 Intake Total 496 540 Output Total 1200 1200 Balance -704 -660 Weight 87 kg Intake: IV 20 Invasive Line 10 10 Invasive Line 9 10 Oral 476 540 Output: Urine 1200 1200 Other: Voiding Method Toilet Toilet Urinal Urinal Incontinent Incontinent ABP, PAP, CO, CI - Last Documented Arterial Blood Pressure 118/42 - Labs CBC & Chem 7: 10/13/23 07:41 10/13/23 07:41 Labs: Abnormal Lab Results - Last 24 Hours (Table) 10/13/23 10/13/23 10/13/23 Range/Units 07:41 07:41 11:33 RBC 3.28 L (4.30-5.90) m/uL Hgb 10.5 L (13.0-17.5) gm/dL Hct 33.9 L (39.0-53.0) % MCV 103.4 H (80.0-100.0) fL MCHC 30.9 L (31.0-37.0) g/dL BUN 25 H (9-20) mg/dL Glucose 197 H (74-99) mg/dL POC Glucose (mg/dL) 274 H (70-110) mg/dL Calcium 7.7 L (8.4-10.2) mg/dL Magnesium 1.2 L (1.6-2.3) mg/dL 10/13/23 10/14/23 10/14/23 Range/Units 16:12 00:05 06:05 RBC (4.30-5.90) m/uL Hgb (13.0-17.5) gm/dL Hct (39.0-53.0) % MCV (80.0-100.0) fL MCHC (31.0-37.0) g/dL BUN (9-20) mg/dL Glucose (74-99) mg/dL POC Glucose (mg/dL) 236 H 207 H 159 H (70-110) mg/dL Calcium (8.4-10.2) mg/dL Magnesium (1.6-2.3) mg/dL Microbiology - Last 24 Hours (Table) 10/12/23 19:27 Gram Stain - Preliminary Sputum 10/09/23 16:35 Blood Culture - Preliminary Blood
[2023-10-14] MEDS: VANCOMYCIN TROUGH DUE 1 EACH MISC MISCELLANE ONE (10:41)
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
[2023-10-14 11:37] LABS: Glucose,Whole Blood 247 mg/dL (70-110)
[2023-10-14 13:27] LABS: African American GFR (CKD) 76 (>60 ml/min/1.73 sqM); Anion Gap 4 mmol/L; Blood Urea Nitrogen 37 mg/dL (9-20); Calcium 7.4 mg/dL (8.4-10.2); Carbon Dioxide 29 mmol/L (22-30); Chloride 99 mmol/L (98-107); Glucose 247 mg/dL (74-99); Magnesium 1.6 mg/dL (1.6-2.3); Non-African American GFR(CKD) 66 (>60 ml/min/1.73 sqM); Potassium 4.8 mmol/L (3.5-5.1); Sodium 132 mmol/L (137-145)
[2023-10-14 16:59] LABS: Glucose,Whole Blood 185 mg/dL (70-110)
[2023-10-14 20:02] LABS: Glucose,Whole Blood 212 mg/dL (70-110)
[2023-10-14] MEDS: MAGNESIUM SULFATE-D5W PMX 1 GM in DEXTROSE/WATER 1 100ML.BAG IVPB SCH (21:20)
--- NOTE | 2023-10-15 01:35 | P.PN ---
Subjective Progress Note Date: 10/14/23 Patient was seen for a follow-up. Patient is slightly somnolent. Patient states he feels "way way better". Patient denies headache. Denies any episodes of unresponsiveness. Objective - Vital Signs Vital signs: Vital Signs Temp 97.6 F 10/14/23 23:10 Pulse 91 10/14/23 23:10 Resp 34 H 10/14/23 23:10 BP 102/63 10/14/23 23:10 Pulse Ox 97 10/14/23 23:10 FiO2 30 10/04/23 11:57 Intake & Output 10/14/23 10/14/23 10/15/23 06:59 18:59 06:59 Intake Total 540 510 10 Output Total 1200 1300 Balance -660 -790 10 Weight 87 kg Intake: IV 10 10 Invasive Line 10 10 10 Oral 540 500 Output: Urine 1200 1300 Other: Voiding Method Toilet Toilet Urinal Urinal Urinal Incontinent Incontinent Incontinent # Bowel Movements 1 ABP, PAP, CO, CI - Last Documented Arterial Blood Pressure 118/42 - Exam Mental status, speech and language functions are normal. Cranial nerves are normal visual wright are full. Face is symmetric. Muscle strength testing there is no pronator drift. Strength is equal. He has shoulder issues from arthritis or rotator cuff problems. Lower extremity is a normal. Sensory is equal. No ataxia. - Labs CBC & Chem 7: 10/13/23 07:41 10/14/23 12:40 Labs: Abnormal Lab Results - Last 24 Hours (Table) 10/14/23 10/14/23 10/14/23 Range/Units 06:05 11:35 12:40 Sodium 132 L (137-145) mmol/L BUN 37 H (9-20) mg/dL Glucose 247 H (74-99) mg/dL POC Glucose (mg/dL) 159 H 247 H (70-110) mg/dL Calcium 7.4 L (8.4-10.2) mg/dL 10/14/23 10/14/23 Range/Units 16:57 20:00 Sodium (137-145) mmol/L BUN (9-20) mg/dL Glucose (74-99) mg/dL POC Glucose (mg/dL) 185 H 212 H (70-110) mg/dL Calcium (8.4-10.2) mg/dL Microbiology - Last 24 Hours (Table) 10/12/23 19:27 Gram Stain - Preliminary Sputum Sputum Culture - Preliminary Assessment and Plan Assessment: * Acute encephalopathy, completely dissolved. Exact etiology unclear. Rule out septic/toxic metabolic encephalopathy. CVA ruled out. Rule out TIA. Current NIH stroke scale is 0. * Severe left, greater than 75% stenosis left mid common carotid artery and in the origin of the left ICA. This could be potentially symptomatic. CVA could be related to left ICA stenosis, and septic emboli also possibility with evidence of acute wound infection, and fever 100.3. * Admission to the hospital for altered mental status and accidental fentanyl overdose. * Left ICA stenosis severe, greater than 75% in the mid left common carotid artery and in the origin of the left ICA (per CTA report). * Status post extubation 10/04/2023. 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 * Acute kidney injury * Metabolic acidosis * Acute systolic congestive heart failure with EF 40%. * Moderate to severe aortic stenosis. * CAD with history of bypass grafting 2009. * Hypertension * Diabetes * Hyperlipidemia * Noncompliance with treatment. Plan: * Patient has acute encephalopathy, unclear cause. Rule out septic or toxic metabolic encephalopathy versus TIA. Acute stroke ruled out. * CTA of the head and neck was done, which revealed possible significant stenosis of the origin left common carotid artery. Severe greater than 75% hemodynamically significant stenosis in the mid left common carotid artery and in the origin of the left internal carotid artery. Mild to moderate stenosis in the proximal right ICA. No significant occlusive disease aneurysm or vascular malformation intracranially. * Vascular surgery input appreciated. * Carotid Doppler revealed findings suggestive of 50-69% stenosis involving the proximal right ICA with severe atherosclerotic plaque noted bilaterally. Antegrade flow in both vertebral arteries. * Vascular surgery recommending medical management. Patient declining any vascular surgical intervention either. Dr. Morrison from interventional cardiology also following the patient. * Continue aspirin 325 mg daily. * MRI of the brain, revealed age-related atrophic and chronic small vessel ischemic change. No acute intracranial process at this time. No enhancing lesions are seen. I personally reviewed MR agree with the findings. * 2D echo performed 09/28/2023 revealed LVEF 40%. Moderate MR, moderate to severe aortic stenosis. Consider MAGGIE. Cardiology following. * Hemoglobin A1c 6.4 * Fasting lipid panel cholesterol 121, LDL 66, HDL 36, triglycerides 90. Start Lipitor 40 mg daily. * B12 335, homocystine 10.4, RBC folate 509. TSH 3.73. Ammonia is normal 13. Start B12 replacement. * Telemetry monitoring, rule out arrhythmia. * EEG was normal during wakefulness, drowsiness and stage II sleep. No focal, lateralized or epileptiform activity was seen. * Continue neurochecks. * DVT prophylaxis: Patient on heparin 5000 units subcu every 8 hours. * Other medical management as per IM and other specialties on board. Patient on cefepime 2 g every 8 hours and vancomycin for wound infection. * Dr. Patrick starting neurology service from the morning.
[2023-10-15 06:04] LABS: Glucose,Whole Blood 164 mg/dL (70-110)
--- NOTE | 2023-10-15 06:17 | PN ---
PROGRESS NOTE DATE OF SERVICE: 10/14/2023 SUBJECTIVE: This 73-year-old gentleman who was admitted with CHF acute exacerbation. He is no code, and the patient is requesting hospice at home. PHYSICAL EXAMINATION: VITAL SIGNS: Pulse is 102, blood pressure n, respirations 28. CHEST: Few scattered rhonchi. ABDOMEN: Soft. NERVOUS SYSTEM: Nonfocal. LABORATORY DATA: Reviewed. ASSESSMENT: 1. Congestive heart failure. 2. acute exacerbation with bilateral aspiration pneumonia with hemoptysis. 3. Carotid stenosis. 4. Change in mental status, metabolic encephalopathy. 5. Acute hypoxic respiratory failure. 6. Multiple complex medical issues. 7. No code, no CPR, no vent. 8. For hospice at home. RECOMMENDATIONS: Recommend to continue current management and continue with symptomatic treatment. Otherwise, caser in and geriatric social worker to work to arrange hospice at home. Prognosis guarded. HIRAL / ANDREW: [id number] / MTDD
--- NOTE | 2023-10-15 08:01 | P.PN ---
Subjective Progress Note Date: 10/14/23 Principal diagnosis: Reason for follow-up is right leg wound and osteomyelitis The patient is a 73-year-old male with a past medical history significant for diabetes mellitus hypertension hyperlipidemia coronary disease prostate disorder, patient did have a history of previous injury to the right leg requiring operative repair with hardware and has been dealing with a nonhealing wound to the right anterior leg for few years presented to hospital mental status changes possible overdose on fentanyl patch with a worsening wound to the right leg prompting this consultation. On today's evaluation that is 10/14/2023,the patient remains to be afebrile, patient is on 5 L nasal cannula supplemental oxygen and denies any shortness of breath no chest pain or any worsening cough.Patient denies having any nausea or vomiting, no abdominal pain and no diarrhea has been reported. No CBC was done today creatinine is 1.1 1 repeat blood and sputum cultures so far pending Objective - Vital Signs Vital signs: Vital Signs Temp 98.2 F 10/14/23 14:59 Pulse 91 10/14/23 17:04 Resp 36 H 10/14/23 14:59 BP 91/55 10/14/23 17:04 Pulse Ox 91 L 10/14/23 17:04 FiO2 30 10/04/23 11:57 Intake & Output 10/13/23 10/14/23 10/14/23 18:59 06:59 18:59 Intake Total 496 540 510 Output Total 1200 1200 1300 Balance -704 -660 -790 Weight 87 kg Intake: IV 20 10 Invasive Line 10 10 10 Invasive Line 9 10 Oral 476 540 500 Output: Urine 1200 1200 1300 Other: Voiding Method Toilet Toilet Toilet Urinal Urinal Urinal Incontinent Incontinent Incontinent ABP, PAP, CO, CI - Last Documented Arterial Blood Pressure 118/42 - Exam GENERAL DESCRIPTION: An elderly male lying in bed in no distress RESPIRATORY SYSTEM: Unlabored breathing , decreased breath sounds at bases HEART: S1 S2 regular rate and rhythm , ABDOMEN: Soft , no tenderness EXTREMITIES: Right leg wound is currently dressed no drainage on the dressing - Labs CBC & Chem 7: 10/13/23 07:41 10/14/23 12:40 Labs: Abnormal Lab Results - Last 24 Hours (Table) 10/14/23 10/14/23 10/14/23 Range/Units 00:05 06:05 11:35 Sodium (137-145) mmol/L BUN (9-20) mg/dL Glucose (74-99) mg/dL POC Glucose (mg/dL) 207 H 159 H 247 H (70-110) mg/dL Calcium (8.4-10.2) mg/dL 10/14/23 10/14/23 Range/Units 12:40 16:57 Sodium 132 L (137-145) mmol/L BUN 37 H (9-20) mg/dL Glucose 247 H (74-99) mg/dL POC Glucose (mg/dL) 185 H (70-110) mg/dL Calcium 7.4 L (8.4-10.2) mg/dL Microbiology - Last 24 Hours (Table) 10/12/23 19:27 Gram Stain - Preliminary Sputum Sputum Culture - Preliminary Assessment and Plan (1) Allergy to multiple antibiotics Current Visit: Yes Status: Acute Code(s): Z88.1 - ALLERGY STATUS TO OTHER ANTIBIOTIC AGENTS SNOMED Code(s): 827597204 (2) Leukocytosis Current Visit: Yes Status: Acute Code(s): D72.829 - ELEVATED WHITE BLOOD CELL COUNT, UNSPECIFIED SNOMED Code(s): 133620216 (3) Leg wound, right Current Visit: Yes Status: Acute Code(s): S81.801A - UNSPECIFIED OPEN WOUND, RIGHT LOWER LEG, INITIAL ENCOUNTER SNOMED Code(s): 89079939129874217 Plan: 1patient presented to hospital with mental status changes possibly fentanyl overdose patches has been removed patient also have chronic nonhealing wound to the right leg which has been there for many years with exposed hardware and likely concerning for osteomyelitis patient wound has increased in size compared to 2-year ago when I saw the patient last with the hardware exposed and highly suspicious for possible osteomyelitis . 2local wound culture currently growing MRSA and bacteroids patient did have elevated sed rate of 85 3patient with multiple antibiotic ALLERGIES that would limit the number of antibiotic safe to use. 4patient benefit from removal of the infected hardware in the wound bed in order to completely heal this infection x-rays were reviewed with the family as well as with the radiologist and more likely the upper screw that is visible case has been discussed with orthopedics patient was evaluated and was scheduled for removal of the hardware subsequently orthopedic has signed off 5patient did have slight worsening of his respiratory status also develop a fever concerning for possible aspiration pneumonitis blood and sputum culture are currently pending at this point 6- patient did have resolution of the fever and the white count normalized, to continue vancomycin cefepime and Flagyl while waiting for the culture to finalize Dictation was produced using [employer] dictation software. please excuse any grammatical, word or spelling errors. Time with Patient: Less than 30
[2023-10-15] MEDS: CYANOCOBALAMIN 500 MCG TAB PO SCH (08:53)
[2023-10-15 11:36] LABS: Glucose,Whole Blood 211 mg/dL (70-110)
--- NOTE | 2023-10-15 12:40 | P.PN ---
Subjective Progress Note Date: 10/15/23 Principal diagnosis: Reason for follow-up is right leg wound and osteomyelitis The patient is a 73-year-old male with a past medical history significant for diabetes mellitus hypertension hyperlipidemia coronary disease prostate disorder, patient did have a history of previous injury to the right leg requiring operative repair with hardware and has been dealing with a nonhealing wound to the right anterior leg for few years presented to hospital mental status changes possible overdose on fentanyl patch with a worsening wound to the right leg prompting this consultation. On today's evaluation that is 10/15/2023, the patient continues to be afebrile, the patient is on 6 L nasal oxygen and denies any worsening shortness of breath the Pt denies having any chest pain or any worsening cough, the patient denies having any abdominal pain no vomiting or any diarrhea denies any worsening pain to the right leg. No new lab has been obtained today Objective - Vital Signs Vital signs: Vital Signs Temp 98.0 F 10/15/23 08:25 Pulse 88 10/15/23 09:20 Resp 22 10/15/23 09:20 BP 102/58 10/15/23 08:25 Pulse Ox 94 L 10/15/23 08:25 FiO2 30 10/04/23 11:57 Intake & Output 10/14/23 10/15/23 10/15/23 18:59 06:59 18:59 Intake Total 510 10 250 Output Total 1300 650 Balance -790 -640 250 Weight 86 kg Intake: IV 10 10 10 Invasive Line 10 10 10 10 Oral 500 240 Output: Urine 1300 650 Other: Voiding Method Toilet Urinal Urinal Urinal Incontinent Incontinent Incontinent # Voids 1 3 # Bowel Movements 1 ABP, PAP, CO, CI - Last Documented Arterial Blood Pressure 118/42 - Exam GENERAL DESCRIPTION: An elderly male lying in bed in no distress RESPIRATORY SYSTEM: Unlabored breathing , decreased breath sounds at bases HEART: S1 S2 regular rate and rhythm , ABDOMEN: Soft , no tenderness EXTREMITIES: Right leg wound is currently dressed no drainage on the dressing - Labs CBC & Chem 7: 10/13/23 07:41 10/14/23 12:40 Labs: Abnormal Lab Results - Last 24 Hours (Table) 10/14/23 10/14/23 10/14/23 Range/Units 12:40 16:57 20:00 Sodium 132 L (137-145) mmol/L BUN 37 H (9-20) mg/dL Glucose 247 H (74-99) mg/dL POC Glucose (mg/dL) 185 H 212 H (70-110) mg/dL Calcium 7.4 L (8.4-10.2) mg/dL 10/15/23 10/15/23 Range/Units 06:01 11:33 Sodium (137-145) mmol/L BUN (9-20) mg/dL Glucose (74-99) mg/dL POC Glucose (mg/dL) 164 H 211 H (70-110) mg/dL Calcium (8.4-10.2) mg/dL Microbiology - Last 24 Hours (Table) 10/12/23 19:27 Gram Stain - Preliminary Sputum Sputum Culture - Preliminary Presumptive Staph aureus 10/09/23 16:35 Blood Culture - Final Blood Assessment and Plan (1) Allergy to multiple antibiotics Current Visit: Yes Status: Acute Code(s): Z88.1 - ALLERGY STATUS TO OTHER ANTIBIOTIC AGENTS SNOMED Code(s): 863042039 (2) Leukocytosis Current Visit: Yes Status: Acute Code(s): D72.829 - ELEVATED WHITE BLOOD CELL COUNT, UNSPECIFIED SNOMED Code(s): 263851347 (3) Leg wound, right Current Visit: Yes Status: Acute Code(s): S81.801A - UNSPECIFIED OPEN WOUND, RIGHT LOWER LEG, INITIAL ENCOUNTER SNOMED Code(s): 71426740664933290 Plan: 1patient presented to hospital with mental status changes possibly fentanyl overdose patches has been removed patient also have chronic nonhealing wound to the right leg which has been there for many years with exposed hardware and likely concerning for osteomyelitis patient wound has increased in size compared to 2-year ago when I saw the patient last with the hardware exposed and highly suspicious for possible osteomyelitis . 2local wound culture currently growing MRSA and bacteroids patient did have elevated sed rate of 85 3patient with multiple antibiotic ALLERGIES that would limit the number of antibiotic safe to use. 4patient benefit from removal of the infected hardware in the wound bed in order to completely heal this infection x-rays were reviewed with the family as well as with the radiologist and more likely the upper screw that is visible case has been discussed with orthopedics patient was evaluated and was scheduled for removal of the hardware subsequently orthopedic has signed off 5patient did have slight worsening of his respiratory status also develop a fever concerning for possible aspiration pneumonitis blood and sputum culture are currently pending at this point 6- patient did have resolution of the fever and the white count normalized, 7-patient to continue vancomycin cefepime and Flagyl however patient mention he wants to go hospice which may be appropriate for him if that is the case antibiotics can be safely discontinued Dictation was produced using [employer] dictation software. please excuse any grammatical, word or spelling errors. Time with Patient: Less than 30
[2023-10-15] MEDS: VANCOMYCIN 1,250 MG in SODIUM CHLORIDE 0.9% 250 ML IVPB SCH (12:55)
--- NOTE | 2023-10-15 13:05 | P.PN ---
Subjective Progress Note Date: 10/15/23 This is a 73-year-old gentleman with coronary artery disease status post CABG and valvular heart disease known moderate to severe aortic stenosis as well as cardiomyopathy with a EF around 40% as well as multiple comorbid conditions was admitted to the hospital initially with suicidal attempt. We have been treating the patient for heart failure. October 13, 2023 The patient was seen and evaluated this morning. He is still hypoxic requiring oxygen. Hemodynamically he is stable but he still in mild sinus tachycardia with heart rate above 100 beats per minutes. Currently he is on Lasix IV and he is on metoprolol as well. Urine output has been adequate. Examination is remarkable for regular rhythm with a crescendo decrescendo murmur at right upper sternal border and diminished breathing sounds bilaterally and no edema was noted in the lower extremities October 14, 2023 The patient was seen this morning. He continues to be hypoxic on oxygen. He is on IV Lasix but he has been refusing the Lasix intermittently. No symptoms of chest pain or chest discomfort but shortness of breath. The examination is remarkable for regular rhythm with mild sinus tachycardia and systolic murmur at the right upper sternal border as well as bilateral rhonchi noted. October 15, 2023 Patient is seen and examined at bedside this morning. Patient reports that he has chosen to going for hospice. He has been transition to hospice care this morning. Assessment Heart failure with reduced ejection fraction Sinus tachycardia which has improved CAD status post CABG Valvular heart disease with aortic stenosis Cardiomyopathy Multiple comorbid conditions Plan Continue current medications without any changes. He has been transition to hospice care this morning. Cardio team will sign off contact us in case of quetions Objective - Vital Signs Vital signs: Vital Signs Temp 98.0 F 10/15/23 08:25 Pulse 77 10/15/23 12:54 Resp 22 10/15/23 09:20 BP 102/58 10/15/23 08:25 Pulse Ox 94 L 10/15/23 08:25 FiO2 30 10/04/23 11:57 Intake & Output 10/14/23 10/15/23 10/15/23 18:59 06:59 18:59 Intake Total 510 10 250 Output Total 1300 650 Balance -790 -640 250 Weight 86 kg Intake: IV 10 10 10 Invasive Line 10 10 10 10 Oral 500 240 Output: Urine 1300 650 Other: Voiding Method Toilet Urinal Urinal Urinal Incontinent Incontinent Incontinent # Voids 1 3 # Bowel Movements 1 ABP, PAP, CO, CI - Last Documented Arterial Blood Pressure 118/42 - Labs CBC & Chem 7: 10/13/23 07:41 10/14/23 12:40 Labs: Abnormal Lab Results - Last 24 Hours (Table) 10/14/23 10/14/23 10/14/23 Range/Units 12:40 16:57 20:00 Sodium 132 L (137-145) mmol/L BUN 37 H (9-20) mg/dL Glucose 247 H (74-99) mg/dL POC Glucose (mg/dL) 185 H 212 H (70-110) mg/dL Calcium 7.4 L (8.4-10.2) mg/dL 10/15/23 10/15/23 Range/Units 06:01 11:33 Sodium (137-145) mmol/L BUN (9-20) mg/dL Glucose (74-99) mg/dL POC Glucose (mg/dL) 164 H 211 H (70-110) mg/dL Calcium (8.4-10.2) mg/dL Microbiology - Last 24 Hours (Table) 10/12/23 19:27 Gram Stain - Preliminary Sputum Sputum Culture - Preliminary Presumptive Staph aureus 10/09/23 16:35 Blood Culture - Final Blood
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
[2023-10-15 14:31] VITALS: RESP 16
[2023-10-15 15:36] VITALS: TEMP 98.1
[2023-10-15 15:40] VITALS: BP 102/56; PULSE 89
[2023-10-15 16:37] LABS: Glucose,Whole Blood 203 mg/dL (70-110)
[2023-10-16] MEDS ORDERED: VANCOMYCIN TROUGH DUE 1 EACH MISC MISCELLANE ONE (08:00)
--- NOTE | 2023-10-16 13:56 | CDI ---
Documentation Clarification Form Date: 10/16/2023 01:33:07 PM From: Blank Mendoza Phone: Admit Date: 09/26/2023 12:41:00 PM Patient Name: Sam Sanchez Visit Number: [id number] Discharge Date: 10/15/2023 07:11:00 PM ATTENTION: The Clinical Documentation Specialists (CDI) and [facility] Coding Staff appreciate your assistance in clarifying documentation. Please respond to the clarification below the line at the bottom and electronically sign. The CDI & [facility] Coding staff will review the response and follow-up if needed. Please note: Queries are made part of the Legal Health Record. If you have any questions, please contact the author of this message via ITS. Doctor/Provider: Viki Dinero Your patient has an abnormal lab value: Glucose 202. Please clarify if there is an additional diagnosis and/or clinical significance related to this value. History/Risk Factors: 73yo M, SI w fentanyl OD, sepsis, AHRF, ATN, tox/met enceph, RLE ulcer w bone hardware exposure, HTN, HLD, DMII, ACSHF, CAD, /MR, ICM, former smoker Clinical indicators: Glucose: 09/25 131-281 09/26 124-281 A1C 6.4 He has history of diabetes for last 30+ years, but hasnot been treated for last few years. Treatment: Patient found to have significant hyperkalemia patient was given D50,insulin, calcium gluconate, sodium bicarb started on bicarb drip patient did have butyl treatments given. Is there an additional diagnosis and/or clinical significance related to the above lab result/information? [ x ] Diabetes Mellitus with Hyperglycemia [ ] No additional diagnosis/Not clinically significant [ ] Other, please specify [ ] Unable to determine (Template Last Revised: April 2020) MTDD
--- NOTE | 2023-10-16 13:57 | CDI ---
Documentation Clarification Form Date: 10/16/2023 01:44:28 PM From: Blank Mendoza Phone: Admit Date: 09/26/2023 12:41:00 PM Patient Name: Sam Sanchez Visit Number: [id number] Discharge Date: 10/15/2023 07:11:00 PM ATTENTION: The Clinical Documentation Specialists (CDI) and [facility] [facility] [employer] Coding Staff appreciate your assistance in clarifying documentation. Please respond to the clarification below the line at the bottom and electronically sign. The CDI & [facility] [employer] Coding staff will review the response and follow-up if needed. Please note: Queries are made part of the Legal Health Record. If you have any questions, please contact the author of this message via ITS. Doctor/Provider: David Grace Hypotension is documented in per OP Note 09/27. Additional clarification regarding this diagnosis is requested. History/Risk Factors: 73yo M, SI w fentanyl OD, sepsis, AHRF, ATN, tox/met enceph, RLE ulcer w bone hardware exposure, HTN, HLD, DMII, ACSHF, CAD, /MR, ICM, osteomyelitis- refusal of amputation or removal of hardware, former smoker Clinical Indicators: VS: Temp 97.7 F Pulse 82 Resp 20 BP 113/57 Pulse Ox 98 FiO2 70 Elevated sed rateof 85 Treatment: Norepinephrine4 mg; intubated,mechanically ventilated; daptomycin and Flagyl to cover for the bacteroids discontinue cefepime as no gram-negative has been grown; Pt made DNR and palliative care Can the hypotension be further specified? [ ] Postoperative Hypotension [ ] Hypotension due to sepsis [ x] Severe sepsis [ ] Due to MRSA [ ] Due to Bacteroids [ ] Other Condition, please specify [ ] Unable to determine (Template Last Revised: May 2020) MTDD
--- NOTE | 2023-10-16 14:11 | CDI ---
Documentation Clarification Form Date: 10/16/2023 01:59:16 PM From: Blank Mendoza Phone: Admit Date: 09/26/2023 12:41:00 PM Patient Name: Sam Sanchez Visit Number: [id number] Discharge Date: 10/15/2023 07:11:00 PM ATTENTION: The Clinical Documentation Specialists (CDI) and [facility] Coding Staff appreciate your assistance in clarifying documentation. Please respond to the clarification below the line at the bottom and electronically sign. The CDI & [facility] Coding staff will review the response and follow-up if needed. Please note: Queries are made part of the Legal Health Record. If you have any questions, please contact the author of this message via ITS. Doctor/Provider: Viki Dinero Cellulitis is documented per Progress Note 09/28 in addition to. Additional clarification regarding the type of cellulitis is requested. History/risk factors: 73yo M, SI w fentanyl OD, sepsis, AHRF, ATN, tox/met enceph, RLE ulcer w bone hardware exposure, HTN, HLD, DMII, ACSHF, CAD, /MR, ICM, osteomyelitis- refusal of amputation or removal of hardware, former smoker Clinical Indicators: Hx chronic RLE wound; Pt. is afebrile and Ortho was sent toremove some hardware in the RLE although Pt. does not appear medically stable today at this time given respiratory status and refusing of treatment. Family at the bedside discussing compliance although Pt. is persistentand continues to refuse. Ortho with no plans for surgical intervention at this time althoughlikelyneeds this intervention on the RLE as Pt.s white count is moreelevatedwith a mildlyelevated procalcitonin and CRP. Infectious diseases following Treatment: Pt. continues on IV antibiotics per infectious disease and currently awaiting to undergo surgical intervention of the RLE with screwremovalwith Ortho on 10/09/2023. Continue with the daptomycin and Flagyl and monitor clinical course closely; Pt refusing care; made DNR and palliative care Please clarify the type of cellulitis, if known: [ x ] Diabetic cellulitis [ ] Chronic Cellulitis [ ] Other, please specify: [ ] Unable to determine (Template Last Revised: March 2022) MTDD
--- NOTE | 2023-10-18 11:23 | CDI ---
Documentation Clarification Form Date: 10/18/2023 11:00:30 AM From: Blank Mendoza Phone: Admit Date: 09/26/2023 12:41:00 PM Patient Name: Sam Sanchez Visit Number: [id number] Discharge Date: 10/15/2023 07:11:00 PM ATTENTION: The Clinical Documentation Specialists (CDI) and [facility] Coding Staff appreciate your assistance in clarifying documentation. Please respond to the clarification below the line at the bottom and electronically sign. The CDI & [facility] Coding staff will review the response and follow-up if needed. Please note: Queries are made part of the Legal Health Record. If you have any questions, please contact the author of this message via ITS. Doctor/Provider: Claudettereena Rosette Sepsis is documented [insert date, location] which may lack sufficient clinical evidence/support in the medical record. Additional clarification is requested. History/Risk Factors: 73yo M, SI w fentanyl OD,sepsis,AHRF,ATN, HTN,HLD,DMII, ACSHF,CAD, /MR, tox/met enceph,RLE ulcerw bone hardwareexposure,ICM,former smoker Clinical Indicators: VS: 09/25 Temp 98.0 Pulse 102 Resp 8 L BP 120/64 O2 Sat 99- 97 12 Temp 97.7 Pulse 82 Resp 20 BP 113/57 Pulse Ox 98FiO2 70 Treatment: He has chronicwoundon the RLE with exposed hardware. ID requested consult forpossiblescrew removalto better his chances of healing thiswound. He is in ICU due to his current condition andsepsisalong with other SNF. Norepinephrine4 mg; intubated,mechanically ventilated; daptomycin and Flagyl to cover for the bacteroids discontinue cefepime as no gram-negative has been grown; Pt madeDNRandpalliative care. After work up and study, please clarify which diagnosis is most appropriate and the clinical significance of wound culture results? [ x ] Severe Sepsis was present on admission [ ] Due toMRSA [ ] Due to Bacteroids [ ] Severe Sepsis was not present on admission [ ] Due toMRSA [ ] Due to Bacteroids [ ] Other, please specify [ ] Unable to determine (Template Last Reviewed: March 2023) MTDD
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
== END 2023-10-15 19:11 | disposition hospice, home (50) | DRG 917 ==
LOC: EC 11:21 → 2SICU 12:41 → 4SSUR 10-06 02:21 → 3SCARD 10-11 15:15
PROVIDERS: ADMIT Internal Medicine; ATTEND Internal Medicine
PROC: 0B9M8ZX Drainage of Bilateral Lungs, Via Natural or Artificial Opening Endoscopic, Diagnostic (ICD-10-PCS; principal; 2023-09-28)
PROC: 0BH18EZ Insertion of Endotracheal Airway into Trachea, Via Natural or Artificial Opening Endoscopic (ICD-10-PCS; 2023-09-28)
PROC: 5A1945Z Respiratory Ventilation, 24-96 Consecutive Hours (ICD-10-PCS; 2023-09-28)
PROC: 5A09357 Assistance with Respiratory Ventilation, Less than 24 Consecutive Hours, Continuous Positive Airway Pressure (ICD-10-PCS; 2023-09-28)
PROC: 3E033XZ Introduction of Vasopressor into Peripheral Vein, Percutaneous Approach (ICD-10-PCS; 2023-09-28)
DX: T40.412A Poisoning by fentanyl or fentanyl analogs, intentional self-harm, initial encounter (principal); A41.9 Sepsis, unspecified organism; J96.01 Acute respiratory failure with hypoxia; R65.20 Severe sepsis without septic shock; N17.0 Acute kidney failure with tubular necrosis; J69.0 Pneumonitis due to inhalation of food and vomit; I63.232 Cerebral infarction due to unspecified occlusion or stenosis of left carotid arteries; I50.23 Acute on chronic systolic (congestive) heart failure; G92.8 Other toxic encephalopathy; J15.212 Pneumonia due to Methicillin resistant Staphylococcus aureus; I76 Septic arterial embolism; T84.622A Infection and inflammatory reaction due to internal fixation device of right tibia, initial encounter; L97.216 Non-pressure chronic ulcer of right calf with bone involvement without evidence of necrosis; M86.8X6 Other osteomyelitis, lower leg; E87.20 Acidosis, unspecified; R04.2 Hemoptysis; L03.115 Cellulitis of right lower limb; I27.22 Pulmonary hypertension due to left heart disease; I11.0 Hypertensive heart disease with heart failure; E11.69 Type 2 diabetes mellitus with other specified complication; Z51.5 Encounter for palliative care; Z66 Do not resuscitate; E11.65 Type 2 diabetes mellitus with hyperglycemia; E11.628 Type 2 diabetes mellitus with other skin complications; R62.7 Adult failure to thrive; Z53.29 Procedure and treatment not carried out because of patient's decision for other reasons; T50.916A Underdosing of multiple unspecified drugs, medicaments and biological substances, initial encounter; I08.0 Rheumatic disorders of both mitral and aortic valves; F32.A Depression, unspecified; E87.5 Hyperkalemia; E78.5 Hyperlipidemia, unspecified; I25.10 Atherosclerotic heart disease of native coronary artery without angina pectoris; E86.0 Dehydration; I25.5 Ischemic cardiomyopathy; I45.10 Unspecified right bundle-branch block; M10.9 Gout, unspecified; B96.6 Bacteroides fragilis [B. fragilis] as the cause of diseases classified elsewhere; R29.700 NIHSS score 0; R26.2 Difficulty in walking, not elsewhere classified; R15.9 Full incontinence of feces; R41.89 Other symptoms and signs involving cognitive functions and awareness; R79.89 Other specified abnormal findings of blood chemistry; Y79.1 Therapeutic (nonsurgical) and rehabilitative orthopedic devices associated with adverse incidents; Z77.22 Contact with and (suspected) exposure to environmental tobacco smoke (acute) (chronic); Z96.652 Presence of left artificial knee joint; Z62.29 Other upbringing away from parents; Z91.128 Patient's intentional underdosing of medication regimen for other reason; Z91.198 Patient's noncompliance with other medical treatment and regimen for other reason; Z63.4 Disappearance and death of family member; Z95.1 Presence of aortocoronary bypass graft; Z87.891 Personal history of nicotine dependence; Z87.820 Personal history of traumatic brain injury; Z79.84 Long term (current) use of oral hypoglycemic drugs; Z79.899 Other long term (current) drug therapy; Z88.0 Allergy status to penicillin; Z91.51 Personal history of suicidal behavior; Z88.2 Allergy status to sulfonamides; Z86.14 Personal history of Methicillin resistant Staphylococcus aureus infection; Z98.1 Arthrodesis status; Z88.1 Allergy status to other antibiotic agents
CPT/HCPCS: 36410; 36415; 36600; 70450; 70496; 70498; 70553; 71045; 76937; 80048; 80053; 80061; 80143; 80179; 80202; 80306; 80320; 81003; 82140; 82533; 82565; 82607; 82747; 82805; 83036; 83735; 83880; 84132; 84145; 84443; 84484; 85025; 85027; 85610; 85652; 85730; 86140; 86850; 86900; 86901; 87040; 87070; 87075; 87077; 87102; 87116; 87186; 87205; 87206; 87496; 87498; 87502; 87529; 87634; 87635; 87798; 88108; 88305; 89050; 93005; 93306; 93880; 94002; 94003; 94640; 94660; 94760; 95816; 96374; 96375; 96376; 99291